=== PATIENT | male | born 1975 | race Caucasian/White ===

== ENCOUNTER 2020-11-25 13:04 | Outpatient (RCR) | payer OTHER, SELFPAY ==
[2020-11-25] MEDS: COVID-19 VACC, MRNA(PFIZER)/PF 30 MCG/0.3 ML SYRINGE IM (16:55)
[2020-12-16] MEDS: COVID-19 VACC, MRNA(PFIZER)/PF 30 MCG/0.3 ML SYRINGE IM (16:34)
== END 2021-02-21 23:59 ==
LOC: IMMUN 13:04
PROVIDERS: PCP Family Medicine; Visit Provider Family Medicine
DX: Z23 Encounter for immunization (principal)
CPT/HCPCS: 0001A; 0002A; 91300

== ENCOUNTER 2021-10-03 13:38 | Emergency (ER) | payer OTHER, SELFPAY ==
[2021-10-03 13:38] VITALS: BP 184/107; PULSE 118; RESP 18; TEMP 36.4; O2SAT 97; BMI 28.7
--- NOTE | 2021-10-03 14:13 | EKG12_ITS ---
Test Reason : CP Blood Pressure : / mmHG Vent. Rate : 102 BPM Atrial Rate : 102 BPM P-R Int : 154 ms QRS Dur : 086 ms QT Int : 354 ms P-R-T Axes : 055 081 029 degrees QTc Int : 461 ms Sinus tachycardia Otherwise normal ECG Confirmed by LEIGHTON ACOSTA, FRANK ([id number]), supervising editor news reel LENARD THORNTON ([id number]) on 10/04/2021 10:09:10 AM Referred By: FARIDEH Confirmed By:FRANK MANZANARES MD
--- NOTE | 2021-10-03 14:14 | NURSING ---
NO OLD EKGS
--- NOTE | 2021-10-03 14:30 | RAD_ITS ---
STUDY: X-RAY CHEST REASON FOR EXAM: Male, 46 years old. Chest pain TECHNIQUE: Single AP portable view of the chest. COMPARISON: None. FINDINGS: EKG electrodes are seen. Mild increased markings at the lung bases suggestive of either atelectasis and/or early infiltrates. Follow-up is recommended. There is no demonstrated pleural abnormality. Normal size heart. Normal mediastinum and jason. Normal visualized pulmonary arteries. Normal visualized aortic arch and descending thoracic aorta. Normal visualized thoracic spine. Normal visualized ribs, clavicles, and shoulders. There is no demonstrated abnormality of the visualized soft tissue structures of the upper abdomen. RAD/Chest 1 View (Portable) IMPRESSION: Increased markings at the lung bases slightly more prominent on the right side suggestive of either atelectasis and/or early infiltrates. Electronically Signed: Florencio Null MD at 14:54 EST , Service support ,
[2021-10-03 14:42] LABS: Prothrombin Time (Protime)PT. 12.8 SECONDS (11.7-14.9)
[2021-10-03 14:46] LABS: Anion Gap 13 (5-15); BUN 10 mg/dL (7-18); BUN/Creat Ratio 7.6 RATIO (10-20); Calcium,Total 9.6 mg/dL (8.5-10.1); Chloride 94 mmol/L (98-107); Creatinine, Serum 1.31 mg/dL (0.70-1.30); EST Glomerular Filtration Rate 63 mL/min (>60); Est Glom Filt Rate - Afr Amer 76 mL/min (>60); Estimated Creatinine Clearance 84.21 ml/min; Glucose 308 mg/dL (74-106); Potassium 4.4 mmol/L (3.5-5.1); Sodium Level 131 mmol/L (136-145); Troponin-I HS 8 pg/mL (3.0-78.0)
[2021-10-03 15:17] LABS: Absolute Lymphocyte Count 1.68 X10^3/uL (0.83-4.51); Absolute Neutrophil Count 2.6 X10^3/uL (2.0-7.7); Basophil# 0.05 X10^3/uL; Eosinophil# 0.07 X10^3/uL; Eosinophils% 1.4 % (0-5); Hematocrit 41.5 % (40-54); Hemoglobin 14.6 g/dL (13.0-16.5); Lymphocyte # 1.68 X10^3/ul (0.83-4.51); Lymphocyte % 33.8 % (19-41); Mean Corp Hgb Conc 35.2 g/dL (32-36); Mean Corpuscular Hgb 33.3 pg (27.0-32.0); Mean Corpuscular Volume 94.5 fL (80-94); Mean Platelet Vol. 11.1 fl (6.2-12.0); Monocyte# 0.53 X10^3/uL; Monocyte% 10.7 % (0-10); NRBC Flagged by Analyzer 0 % (0-5); Neutrophil # 2.62 X10^3/uL (2.7-7.7); Neutrophil % 52.7 % (47-70); Platelet Count 161 K/mm3 (150-450); RBC Distribution Width CV 11.6 % (11.6-14.6); RBC Distribution Width SD 40.2 fl (35.1-43.9); Red Blood Count 4.39 M/mm3 (4.6-6.2)
[2021-10-03] MEDS: 0.9% Normal Saline 1,000 ML 999 ML IV (15:20)
[2021-10-03] MEDS: Ketorolac 15 MG/ML Vial IV (15:20)
--- NOTE | 2021-10-03 15:53 | EDS_ITS ---
HPI History of Present Illness Chief Complaint: Chest Pain Informant: patient Narrative Narrative: Patient is a 46-year-old male with history of anxiety and bipolar disorder as well as diabetes mellitus and hypertension presenting with chest pain. Patient states he was shoveling snow yesterday. In the evening he started to develop pain of his left anterior chest. He notes it is worse when he sits up or takes a deep breath. Movement also makes it worse. He did not take anything for the pain. He denies any associated shortness of breath or difficulty breathing. It has progressively worsened today so he came in to be evaluated. He now describes it as sharp. Patient denies any history of DVT or PE. No other complaints at this time. Prior Similar Symptoms: Yes CVD Risk Factors: Positive for Hypertension and Diabetes [facility] Medical History Appendicitis Bipolar 1 disorder Diabetes Hypertension Home Medications vitamin B complex 1 ea PO DAILY 05/19/14 [History Last Taken Unknown] divalproex [Depakote] 500 mg PO TID 05/28/14 [History Last Taken Unknown] metoprolol tartrate 100 mg PO DAILY 05/28/14 [History Last Taken Unknown] risperidone 3 mg PO DAILY 05/28/14 [History Last Taken Unknown] atorvastatin 10 mg PO DAILY 10/03/21 [History Last Taken Unknown] epinephrine 0.3 mg IM PRN PRN 10/03/21 [History Last Taken Unknown] famotidine 20 mg PO BID 10/03/21 [History Last Taken Unknown] lisinopril 20 mg PO DAILY 10/03/21 [History Last Taken Unknown] Allergy/AdvReac Type Severity Reaction Status Date / Time venom-honey bee Allergy Unknown Verified 10/03/21 13:40 [bee venom (honey bee)] Social History Smoking Status: Never smoker ROS ROS ED Constitutional Constitutional ED: Denies chills or fever(s) Eyes Eyes: Denies blurry vision ENT ENT ED: Denies sore throat Cardiovascular Cardiovascular: Reports as per HPI and chest pain Respiratory/Chest Respiratory/Chest: Denies cough or dyspnea Gastrointestinal Gastrointestinal: Denies abdominal pain, nausea or vomiting Musculoskeletal Musculoskeletal: Denies arthralgias or myalgias Integumentary Denies rash Neurologic Neurologic: Denies headache(s) or weakness Psychiatric Psychiatric: Reports anxiety; Denies depression, suicidal ideation or suicidal thoughts EXAM Physical Exam Const Vital Signs: 10/03/21 13:38 10/03/21 14:21 10/03/21 16:19 Temperature 97.5 F L Temperature Source Temporal Pulse Rate 118 H 89 Respiratory Rate 18 10 L Blood Pressure 184/107 H 115/78 Blood Pressure Mean 132 Pulse Ox 97 95 Oxygen Delivery Method Room Air Room Air Positive well nourished and well developed General Appearance ED: well developed and NAD HEENT normocephalic and atraumatic Eyes PERRL and EOMs intact bilaterally Neck supple and no JVD Neck Narrative: Normal range of motion Chest Wall Chest Narrative: No chest wall crepitus or overlying rash. Patient significant and highly reproducible tenderness to palpation of the left anterior chest wall medial to the midclavicular line and below the level of the nipple. Resp normal respiratory effort and clear to auscultation bilaterally Effort and Inspection: Negative for respiratory distress Cardio regular rate, regular rhythm and no murmurs Peripheral Pulses: pulses 2+ throughout GI normal to inspection, nondistended, normoactive bowel sounds, soft to palpation, non-tender and non-distended Extremity normal to inspection General Extremety ED: Negative for edema or tenderness General Extremity: Negative for edema Neuro oriented x3 Sensorium / Orientation: awake and alert Motor Exam: Negative for general weakness Psych mental status grossly normal Mood & Affect: anxious Skin no rashes or lesions noted and no wounds Heart Score History: Slightly/Non-Suspicious ECG: Normal Age: </= 45 years Risk Factors: >/= 3 Risk Factors or History of CAD Troponin: </= Normal Limit Score: 2 MDM MDM MDM Narrative Medical decision making narrative: Patient is evaluated for chest pain. This occurred the evening after he shoveled snow. Chest pain is highly reproducible with palpation. I suspect it is musculoskeletal. Patient is also quite anxious and I think this is was causing his tachycardia. Protocol ordered for chest pain complaints. Patient does not have any ischemic changes on his EKG. His high sensory troponin is normal. CBC is normal. BMP is remarkable for mild elevation of his creatinine and a mild hyponatremia with a sodium of 131. Patient is given normal saline bolus as well as Toradol for his chest wall pain in the ER. THis creatinine is his baseline. Chest x-ray shows atelectasis versus early infiltrate of the right lower lobe. Given the fact that he does not have a leukocytosis, fever, cough or other signs of pneumonia I suspect it is atelectasis. Patient is informed of these electrolyte findings and that I suspect his pain is muscle skeletal in nature. He is discharged home with improvement of his pain after Toradol. Counseled on return precautions. Damian vasquez verbalizes agreement understanding this plan. Discharged home in stable condition. Lab Data Labs: Laboratory Results - last 24 hr 10/03/21 10/03/21 10/03/21 14:15 14:15 14:15 WBC Cancelled Corrected WBC Cancelled RBC Cancelled Hgb Cancelled Hct Cancelled MCV Cancelled MCH Cancelled MCHC Cancelled RDW Std Deviation Cancelled RDW Coeff of Tiana Cancelled Plt Count Cancelled MPV Cancelled Immature Gran % (Auto) Cancelled Neut % (Auto) Cancelled Lymph % (Auto) Cancelled [place] % (Auto) Cancelled Eos % (Auto) Cancelled Baso % (Auto) Cancelled Absolute Neuts (auto) Cancelled Absolute Lymphs (auto) Cancelled Total Counted Cancelled Neutrophils % (Manual) Cancelled Band Neutrophils % Cancelled Lymphocytes % (Manual) Cancelled Monocytes % (Manual) Cancelled Eosinophils % (Manual) Cancelled Basophils % (Manual) Cancelled Metamyelocytes % Cancelled Myelocytes % Cancelled Promyelocytes % Cancelled Blast Cells % Cancelled Plasma Cell % (Manual) Cancelled Other Cells % Cancelled Nucleated RBC % Cancelled Nucleated RBCs/100 WBC Cancelled Differential Comment Cancelled Diff Path Review Cancelled Hypersegmented Neuts Cancelled Atypical Lymphocytes Cancelled Reactive Lymphocytes Cancelled Smudge Cells Cancelled Toxic Granulation Cancelled Toxic Vacuolation Cancelled Dohle Bodies Cancelled Beatriz Rods Cancelled Platelet Estimate Cancelled Plt Morphology Comment Cancelled RBC Morphology Cancelled Polychromasia Cancelled Hypochromasia Cancelled Poikilocytosis Cancelled Basophilic Stippling Cancelled Anisocytosis Cancelled Microcytosis Cancelled Macrocytosis Cancelled Spherocytes Cancelled Sickle Cells Cancelled Target Cells Cancelled Tear Drop Cells Cancelled Ovalocytes Cancelled Stomatocytes Cancelled [place] Bodies Cancelled Cyrus Cells Cancelled Bite Cells Cancelled Crenated Cell Cancelled Acanthocytes (Spur) Cancelled Rouleaux Cancelled Schistocytes Cancelled PT 12.8 INR 1.0 Sodium 131 L Potassium 4.4 Chloride 94 L Carbon Dioxide 24.0 Anion Gap 13 BUN 10 Creatinine 1.31 H Estim Creat Clear Calc 84.21 Est GFR (MDRD) Af Amer 76 Est GFR (MDRD) Non-Af 63 BUN/Creatinine Ratio 7.6 L Glucose 308 H Calcium 9.6 Troponin I High Sens 8 10/03/21 15:11 WBC 5.0 Corrected WBC RBC 4.39 L Hgb 14.6 Hct 41.5 MCV 94.5 H MCH 33.3 H MCHC 35.2 RDW Std Deviation 40.2 RDW Coeff of Tiana 11.6 Plt Count 161 MPV 11.1 Immature Gran % (Auto) 0.400 Neut % (Auto) 52.7 Lymph % (Auto) 33.8 [place]haw % (Auto) 10.7 H Eos % (Auto) 1.4 Baso % (Auto) 1.0 Absolute Neuts (auto) 2.6 Absolute Lymphs (auto) 1.68 Total Counted Neutrophils % (Manual) Band Neutrophils % Lymphocytes % (Manual) Monocytes % (Manual) Eosinophils % (Manual) Basophils % (Manual) Metamyelocytes % Myelocytes % Promyelocytes % Blast Cells % Plasma Cell % (Manual) Other Cells % Nucleated RBC % 0 Nucleated RBCs/100 WBC Differential Comment Diff Path Review Hypersegmented Neuts Atypical Lymphocytes Reactive Lymphocytes Smudge Cells Toxic Granulation Toxic Vacuolation Dohle Bodies Beatriz Rods Platelet Estimate Plt Morphology Comment RBC Morphology Polychromasia Hypochromasia Poikilocytosis Basophilic Stippling Anisocytosis Microcytosis Macrocytosis Spherocytes Sickle Cells Target Cells Tear Drop Cells Ovalocytes Stomatocytes [place] Bodies Cyrus Cells Bite Cells Crenated Cell Acanthocytes (Spur) Rouleaux Schistocytes PT INR Sodium Potassium Chloride Carbon Dioxide Anion Gap BUN Creatinine Estim Creat Clear Calc Est GFR (MDRD) Af Amer Est GFR (MDRD) Non-Af BUN/Creatinine Ratio Glucose Calcium Troponin I High Sens Radiography Chest X-Ray - ED: 1 View, Read by ED Physician, Read by Radiologist and - (Atelectasis versus early infiltrates) Diagnostic Testing: Clinical Impression(s) from Imaging Studies Chest X-Ray 10/03/21 14:30 IMPRESSION: Increased markings at the lung bases slightly more prominent on the right side suggestive of either atelectasis and/or early infiltrates. Electronically Signed: Florencio Null MD at 14:54 EST , Service support , Rhythm Strip Rhythm Strip: Sinus Tach Rate: 102 Ectopy: None EKG Initial EKG: Interpretation: Sinus Tachycardia Comments: Sinus tachycardia rate of 102 Normal axis Normal intervals Normal ST segments Discharge Plan Triage Chief Complaint: Chest Pain ED Provider: Cora Lopez Dx/Rx/DC Orders Clinical Impression: Acute chest wall pain, Hyponatremia Instructions: ED Chest Wall Pain, Costochondritis Prescriptions: No Action vitamin B complex 1 EACH capsule 1 ea PO DAILY RF: 0 metoprolol tartrate 100 MG tablet 100 mg PO DAILY RF: 0 divalproex [Depakote] 500 MG tablet,delayed release (DR/EC) 500 mg PO TID RF: 0 risperidone 1 MG tablet 3 mg PO DAILY RF: 0 atorvastatin 10 mg tablet 10 mg PO DAILY RF: 0 lisinopril 20 mg tablet 20 mg PO DAILY RF: 0 famotidine 20 mg tablet 20 mg PO BID RF: 0 epinephrine 0.3 mg/0.3 mL auto-injector 0.3 mg IM PRN PRN (Reason: Allergic Reaction) RF: 0 Primary Care Provider: Ilya Chavez Referrals: Ilya Chavez MD [Primary Care Provider] - Activity Restrictions/Additional Instructions: Drink plenty of fluids. Alternate Tylenol and ibuprofen as needed for your pain. Your heart looks normal today. No signs of pneumonia or other abnormalities. You were slightly dehydrated but you were given IV fluids for this. Disposition Disposition: Home, Self Care Discharge Date/Time: 10/03/21 16:20
[2021-10-03 16:19] VITALS: BP 115/78; PULSE 89; RESP 10; O2SAT 95
== END 2021-10-03 16:20 | disposition home or self-care (01) ==
PROVIDERS: Emergency Provider Emergency Medicine; PCP Family Medicine; Visit Provider Emergency Medicine
DX: R07.89 Other chest pain (principal); F31.9 Bipolar disorder, unspecified; E11.9 Type 2 diabetes mellitus without complications; E87.1 Hypo-osmolality and hyponatremia; F41.9 Anxiety disorder, unspecified; I10 Essential (primary) hypertension; Z87.19 Personal history of other diseases of the digestive system; Z79.899 Other long term (current) drug therapy
CPT/HCPCS: 71045; 80048; 84484; 85025; 85610; 93005; 96361; 96374; 99285; J7030; A4216

== ENCOUNTER 2023-07-19 10:25 | Emergency (ER) | payer OTHER, SELFPAY ==
[2023-07-19 10:26] VITALS: BP 166/118; PULSE 85; RESP 14; TEMP 36.2; O2SAT 98; BMI 29.5
[2023-07-19 10:30] VITALS: BP 158/109; PULSE 84; RESP 14; O2SAT 95
--- NOTE | 2023-07-19 10:48 | EKG12_ITS ---
Test Reason : CP Blood Pressure : / mmHG Vent. Rate : 082 BPM Atrial Rate : 082 BPM P-R Int : 170 ms QRS Dur : 080 ms QT Int : 356 ms P-R-T Axes : 046 077 034 degrees QTc Int : 415 ms Normal sinus rhythm Normal ECG Confirmed by ZOE ACOSTA, SIMI ([id number]), international editorial producer DAVID LYNCH ([id number]) on 07/29/2023 7:45:55 AM Referred By: AR/PL Confirmed By:PEEWEE ENRIQUEZ MD
--- NOTE | 2023-07-19 10:49 | ED.VIS.CHEST ---
HPI History of Present Illness Chief Complaint: Chest Pain Informant: patient and spouse/S.O. Narrative Narrative: Patient presents with episode of chest pain. Patient states he was sitting at work. He got sharp chest pain just the right anterior shoulder. It then radiated a little bit toward his shoulder on the backside in the right and a little toward the neck. It lasted for about 20 minutes. He states if he moves he can feel little something in the front of the shoulder now but he is otherwise back to normal. He does state he thinks he was a little short of breath with this. He was not diaphoretic. He did not get nauseated. He has not had this before. He does have a history of blood pressure diabetes and cholesterol. No known family history for heart disease. No PE or DVT history. He did have a trip down to [place] and back by plane and then a boat ride to [place] and he just got back this past weekend. But no leg pain or swelling. No hemoptysis. [facility] Medical History Appendicitis Bipolar 1 disorder Diabetes Hypercholesteremia Hypertension Home Medications vitamin B complex 1 ea PO DAILY 05/19/14 [History Last Taken Unknown] divalproex 500 mg tablet,delayed release (Depakote) 500 mg PO TID 05/28/14 [History Last Taken Unknown] metoprolol tartrate 100 mg tablet 100 mg PO DAILY 05/28/14 [History Last Taken Unknown] risperidone 1 mg tablet 3 mg PO DAILY 05/28/14 [History Last Taken Unknown] atorvastatin 10 mg tablet 10 mg PO DAILY 10/03/21 [History Last Taken Unknown] epinephrine 0.3 mg/0.3 mL injection, auto-injector 0.3 mg IM PRN PRN Allergic Reaction 10/03/21 [History Last Taken Unknown] famotidine 20 mg tablet 20 mg PO BID 10/03/21 [History Last Taken Unknown] lisinopril 20 mg tablet 20 mg PO DAILY 10/03/21 [History Last Taken Unknown] Allergy/AdvReac Type Severity Reaction Status Date / Time venom-honey bee Allergy Unknown Verified 10/03/21 13:40 [bee venom (honey bee)] Social History Smoking Status: Never smoker ROS ROS ED ROS Narrative A complete review of systems was performed and is negative except as documented in the history of present illness. Some specific details below. Constitutional: No recent fevers or chills. No malaise. He felt fine prior to this event and now. EYE: No discharge, visual complaints, or pain. ENT: No difficulty swallowing. No swelling. No pain. No reflux symptoms. No history of reflux. CV: See history of present illness. Respiratory: See history of present illness. He had mild dyspnea with it but that is also gone. GI: No abdominal pain. No nausea vomiting diarrhea. No blood in stool. : No frequency dysuria or hematuria. Musculoskeletal: No recent trauma. No pains. No swelling. No cramping of the legs. No history of DVT. Skin: No rash. Nondiaphoretic. Neuro: No weakness or numbness. Endocrine: No polyuria or polydipsia. EXAM Physical Exam Narrative Exam Narrative: CONSTITUTIONAL: Patient is nontoxic in appearance. The patient looks comfortable. Work of breathing looks normal. HEENT: No notable trauma. Mucous membranes moist. No sinus tenderness. No indication of pain with swallowing. EYES: No conjunctival injection. No proptosis. NECK:No JVD. No stridor. CARDIOVASCULAR: Regular rate. Regular rhythm. No notable murmur. No JVD. Tones are not muffled. He has excellent pulses both upper and lower extremities and they are equal. RESPIRATORY: No respiratory distress. Breathing is unlabored. No wheezes. No rhonchi. No rales. No pain with a deep breath. Just very mild right anterior upper chest wall tenderness almost at the anterior portion of the humerus or over the coracoid process. GASTROINTESTINAL: Not distended. Bowel sounds are normal. No tenderness. No guarding. No rebound. No palpable mass. No bruit is heard. GENITOURINARY: No tenderness over the bladder. No CVA tenderness. MUSCULOSKELETAL: Atraumatic. No peripheral edema. No cord. No tenderness along the deep venous system. No asymmetry. No distended veins. NEUROLOGICAL: Patient is alert and appropriate. No focal deficit noted. SKIN: No noted rashes. No diaphoresis. PSYCHIATRIC: Patient is calm. Mood is appropriate. Const Vital Signs: 07/19/23 10:26 07/19/23 10:30 07/19/23 10:48 Temperature 97.2 F L Temperature Source Temporal Pulse Rate 85 84 Respiratory Rate 14 14 Blood Pressure 166/118 H 158/109 H Blood Pressure Mean 134 125 Pulse Ox 98 95 Oxygen Delivery Method Room Air Room Air Room Air 07/19/23 12:31 Temperature Temperature Source Pulse Rate 81 Respiratory Rate 16 Blood Pressure Blood Pressure Mean Pulse Ox 94 Oxygen Delivery Method Room Air Heart Score History: Slightly/Non-Suspicious ECG: Normal Age: >45 - <65 years Risk Factors: >/= 3 Risk Factors or History of CAD Troponin: </= Normal Limit Score: 3 MDM MDM MDM Narrative Medical decision making narrative: Patient CBC shows normal white count hemoglobin. Platelets are just minimally low which is nonspecific. Patient's electrolytes show no marked abnormalities. Mildly low sodium at 131. Glucose was just a little bit up at 169. Patient's troponin was 8. Patient's repeat troponin was 9. This is not a significant elevation. I checked with the patient again. He has remained asymptomatic. My independent interpretation of the patient's to image single view chest x-ray shows no acute process. Final reading is wax Amidate the chest. Patient does have some risk factors for heart disease. But he has sharp well localized chest pain. It is partially reproduced. His EKG is not markedly changed. He has 2 negative troponins. I believe he is safe for discharge at this time. We did discuss reasons to return even though the work-up here is negative. Lab Data Attestation: I reviewed the patient's lab results. Labs: Laboratory Results - last 24 hr 07/19/23 07/19/23 10:40 12:48 WBC 4.0 L RBC 4.20 L Hgb 13.9 Hct 39.2 L MCV 93.3 MCH 33.1 H MCHC 35.5 RDW Std Deviation 40.8 RDW Coeff of Tinaa 11.9 Plt Count 138 L MPV 11.2 Immature Gran % (Auto) 0.500 Neut % (Auto) 44.4 L Lymph % (Auto) 35.2 [place] % (Auto) 18.2 H Eos % (Auto) 1.0 Baso % (Auto) 0.7 Absolute Neuts (auto) 1.8 L Absolute Lymphs (auto) 1.41 Nucleated RBC % 0 D-Dimer Quant (PE/DVT) 0.40 Sodium 131 L Potassium 3.8 Chloride 95 L Carbon Dioxide 28.0 Anion Gap 8 BUN 5 L Creatinine 0.94 Estim Creat Clear Calc 109.79 Est GFR (MDRD) Af Amer 111 Est GFR (MDRD) Non-Af 92 BUN/Creatinine Ratio 5.3 L Glucose 169 H Calcium 8.9 Troponin I High Sens 8 9 Radiography Diagnostic Testing: Clinical Impression(s) from Imaging Studies Chest X-Ray 07/19/23 11:10 IMPRESSION: Normal x-ray examination of the chest. Electronically Signed: Florencio Null MD at 12:39 EDT , EKG Initial EKG: Comments: My independent interpretation of the patient's EKG shows a sinus rhythm with overall rate of 82. No ectopy. No acute ST elevation or depression. PA interval, QRS duration and QTc are normal. Discharge Plan Triage Chief Complaint: Chest Pain ED Provider: Jose Luis Ortiz Dx/Rx/DC Orders Clinical Impression: History of hypertension, Chest pain Instructions: ED Chest Pain, Uncertain Cause Prescriptions: No Action vitamin B complex 1 EACH capsule 1 ea PO DAILY metoprolol tartrate 100 MG tablet 100 mg PO DAILY divalproex [Depakote] 500 MG tablet,delayed release (DR/EC) 500 mg PO TID risperidone 1 MG tablet 3 mg PO DAILY atorvastatin 10 mg tablet 10 mg PO DAILY lisinopril 20 mg tablet 20 mg PO DAILY famotidine 20 mg tablet 20 mg PO BID epinephrine 0.3 mg/0.3 mL auto-injector 0.3 mg IM PRN PRN (Reason: Allergic Reaction) Primary Care Provider: Ilya Chavez Referrals: Ilya Chavez MD [Primary Care Provider] - 3-5 Days Disposition Disposition: Home, Self Care
--- NOTE | 2023-07-19 11:10 | RAD_ITS ---
STUDY: X-RAY CHEST REASON FOR EXAM: Male, 47 years old. Chest pain. Hypertension. TECHNIQUE: Single AP portable view of the chest. COMPARISON: Comparison is made with prior study dated October 03, 2021. FINDINGS: The lungs are clear and expanded. There is no demonstrated pleural abnormality. Normal size heart. Normal mediastinum and jason. Normal visualized pulmonary arteries. Normal visualized aortic arch and descending thoracic aorta. Normal visualized thoracic spine. Normal visualized ribs, clavicles, and shoulders. There is no demonstrated abnormality of the visualized soft tissue structures of the upper abdomen. RAD/Chest 1 View (Portable) IMPRESSION: Normal x-ray examination of the chest. Electronically Signed: Florencio Null MD at 12:39 EDT ,
[2023-07-19] MEDS: Aspirin 81 MG TAB.CHEW 324 MG PO (11:13)
[2023-07-19] MEDS: 0.9% Normal Saline (1000mL) 500 ML 1000 ML IV (11:13)
[2023-07-19 11:21] LABS: Absolute Lymphocyte Count 1.41 X10^3/uL (0.83-4.51); Absolute Neutrophil Count 1.8 X10^3/uL (2.0-7.7); Basophil# 0.03 X10^3/uL; Basophil% 0.7 % (0-1); Eosinophil# 0.04 X10^3/uL; Hematocrit 39.2 % (40-54); Hemoglobin 13.9 g/dL (13.0-16.5); Lymphocyte # 1.41 X10^3/ul (0.83-4.51); Lymphocyte % 35.2 % (19-41); Mean Corp Hgb Conc 35.5 g/dL (32-36); Mean Corpuscular Hgb 33.1 pg (27.0-32.0); Mean Corpuscular Volume 93.3 fL (80-94); Mean Platelet Vol. 11.2 fl (6.2-12.0); Monocyte# 0.73 X10^3/uL; Monocyte% 18.2 % (0-10); NRBC Flagged by Analyzer 0 % (0-5); Neutrophil # 1.78 X10^3/uL (2.7-7.7); Neutrophil % 44.4 % (47-70); Platelet Count 138 K/mm3 (150-450); RBC Distribution Width CV 11.9 % (11.6-14.6); RBC Distribution Width SD 40.8 fl (35.1-43.9)
[2023-07-19 11:38] LABS: Anion Gap 8 (5-15); BUN 5 mg/dL (7-18); BUN/Creat Ratio 5.3 RATIO (10-20); Calcium,Total 8.9 mg/dL (8.5-10.1); Chloride 95 mmol/L (98-107); Creatinine, Serum 0.94 mg/dL (0.70-1.30); EST Glomerular Filtration Rate 92 mL/min (>60); Est Glom Filt Rate - Afr Amer 111 mL/min (>60); Estimated Creatinine Clearance 109.79 ml/min; Glucose 169 mg/dL (74-106); Potassium 3.8 mmol/L (3.5-5.1); Sodium Level 131 mmol/L (136-145); Troponin-I HS (w/2H Reflex) 8 pg/mL (3.0-78.0)
[2023-07-19 12:31] VITALS: PULSE 81; RESP 16; O2SAT 94
[2023-07-19 13:12] LABS: Reflex Troponin-HS? (from REC) Y
[2023-07-19 13:35] LABS: Troponin-I HS 9 pg/mL (3.0-78.0)
[2023-07-19 14:42] VITALS: BP 141/104; PULSE 80; RESP 20; O2SAT 94
== END 2023-07-19 14:50 | disposition home or self-care (01) ==
PROVIDERS: Emergency Provider Emergency Medicine; PCP Family Medicine; Visit Provider Emergency Medicine
DX: R07.9 Chest pain, unspecified (principal); F31.9 Bipolar disorder, unspecified; E11.9 Type 2 diabetes mellitus without complications; E78.00 Pure hypercholesterolemia, unspecified; I10 Essential (primary) hypertension
CPT/HCPCS: 71045; 80048; 84484; 85025; 85379; 93005; 99284

== ENCOUNTER 2023-09-29 10:43 | Emergency (ER) | payer OTHER, SELFPAY ==
[2023-09-29 10:44] VITALS: BP 153/106; PULSE 85; RESP 16; TEMP 35.8; O2SAT 99; BMI 29.2
--- NOTE | 2023-09-29 11:06 | CT_ITS ---
INDICATION: head injury EXAMINATION: CT BRAIN - CT Head or Brain W/O Contrast Injection TECHNIQUE: Multiple axial images were obtained of the head without intravenous contrast. A radiation dose optimization technique was used for this scan. IV Contrast dosage and agent: None. RADIATION DOSAGE (If Supplied By Facility): CTDIvol = ( 44.99 ) mGy, DLP = ( 829.95 ) mGycm COMPARISON: No relevant prior comparison study available FINDINGS: BRAIN PARENCHYMA: No intra- or extra-axial hemorrhage. No evidence of acute infarct. No intracranial mass or mass effect. There is preservation of the cueto/white matter interface. Posterior fossa structures are unremarkable. CSF SPACES: Appropriate for age. No hydrocephalus. Basal cisterns are patent. CALVARIUM, SKULL BASE, PARANASAL SINUSES AND MASTOID AIR CELLS: There is partial opacification of the right maxillary sinus suggestive of a history of sinusitis. There are round low-attenuation foci within the right maxillary sinus which may reflect mucous retention cyst or polyp. No discrete lytic or blastic abnormalities. ORBITS: Both globes, extraocular muscles, optic nerves and retrobulbar fat appear unremarkable. ASPECTS Score for Acute Strokes: 10 CT/Brain/Head without Contrast IMPRESSION: No acute intracranial process. Electronically Signed: Loan Woods MD at 11:32 EST ,
--- NOTE | 2023-09-29 11:06 | CT_ITS ---
INDICATION: neck pain EXAMINATION: CT CERVICAL SPINE - CT Spine Cervical W/O Contrast Injection TECHNIQUE: Helically acquired images were obtained of the cervical spine. 2D reformatted images were reviewed. A radiation dose optimization technique was used for this scan. IV Contrast dosage and agent: None. RADIATION DOSAGE (If Supplied By Facility): CTDIvol = ( 23.93 ) mGy, DLP = ( 512.37 ) mGycm COMPARISON: No relevant prior comparison study available FINDINGS: VERTEBRAE: No fracture or traumatic subluxation. No discrete lytic or blastic abnormality. There is multilevel facet hypertrophy. Normal alignment. Normal craniocervical junction and cervicothoracic junction. DISCS and SPINAL CANAL: There is multilevel degenerative disc disease. No critical stenosis. NECK SOFT TISSUES: No prevertebral soft tissue swelling. There is no cervical adenopathy. LUNG APICES: Clear. CT/Spine Cervical without Contras IMPRESSION: Multilevel degenerative changes. Electronically Signed: Loan Woods MD at 11:35 EST ,
--- NOTE | 2023-09-29 11:11 | EX.ED.GENINJ ---
HPI <GRIS Lynn - Last Filed: 09/29/23 12:01> History of Present Illness Chief Complaint: Head Injury Narrative Narrative: 48-year-old male works at the [employer] and around 7 AM tripped over basketball and fell backwards striking his head on a shelf. No LOC. His head feels sore and he is starting to have bilateral neck pain. He denies headache, visual changes, nausea or vomiting. He has no pain, weakness or paresthesias in his extremities. He is not on blood thinners. PFSH <GRIS Lynn - Last Filed: 09/29/23 12:01> [facility] Medical History Appendicitis Bipolar 1 disorder Diabetes Hypercholesteremia Hypertension Home Medications vitamin B complex 1 ea PO DAILY 05/19/14 [History Last Taken Unknown] divalproex 500 mg tablet,delayed release (Depakote) 500 mg PO TID 05/28/14 [History Last Taken Unknown] metoprolol tartrate 100 mg tablet 100 mg PO DAILY 05/28/14 [History Last Taken Unknown] risperidone 1 mg tablet 3 mg PO DAILY 05/28/14 [History Last Taken Unknown] atorvastatin 10 mg tablet 10 mg PO DAILY 10/03/21 [History Last Taken Unknown] epinephrine 0.3 mg/0.3 mL injection, auto-injector 0.3 mg IM PRN PRN Allergic Reaction 10/03/21 [History Last Taken Unknown] famotidine 20 mg tablet 20 mg PO BID 10/03/21 [History Last Taken Unknown] lisinopril 20 mg tablet 20 mg PO DAILY 10/03/21 [History Last Taken Unknown] Allergy/AdvReac Type Severity Reaction Status Date / Time venom-honey bee Allergy Unknown Verified 09/29/23 10:44 [bee venom (honey bee)] Social History Smoking Status: Never smoker ROS <GRIS Lynn - Last Filed: 09/29/23 12:01> ROS ED ROS Narrative Eyes: Negative for visual change. GI: Negative for nausea, vomiting. Neuro: Negative for headache, motor/sensory dysfunction. Skin: Negative for wound. Musc: Negative for joint pain, swelling, trauma. EXAM <GRIS Lynn - Last Filed: 09/29/23 12:01> Physical Exam Narrative Exam Narrative: CONST: Patient sitting in no acute distress. EYES: Normal inspection. PERRL, EOMI. ENT: Head normocephalic atraumatic, no raccoon eyes or maddox sign, no hemotympanum, no nasal septal hematoma, no CSF otorrhea or rhinorrhea. NECK: Normal inspection. Tender over midline C-spine, no step-offs or crepitus. RESP: No respiratory distress, CTAB. CVS: Regular rate and rhythm, no murmur, no gallop. SKIN: Color normal, no rash, warm, dry, intact. EXTREMITIES: Normal appearance, no pedal edema. NEURO: Oriented x4. 5/5 upper and lower extremity strength. Resting tremor bilateral arms (chronic). PSYCH: Normal affect. Const Vital Signs: 09/29/23 10:44 09/29/23 10:58 09/29/23 11:43 Temperature 96.5 F L 97.6 F L Temperature Source Temporal Pulse Rate 85 64 Respiratory Rate 16 14 Respiratory Effort Normal Respiratory Depth Normal Respiratory Pattern Normal Blood Pressure 153/106 H 126/86 H Blood Pressure Mean 121 99 Pulse Ox 99 99 Oxygen Delivery Method Room Air Room Air <Dr. Cora Lopez DO - Last Filed: 09/29/23 13:48> Physical Exam Const Vital Signs: 09/29/23 10:44 09/29/23 10:58 09/29/23 11:43 Temperature 96.5 F L 97.6 F L Temperature Source Temporal Pulse Rate 85 64 Respiratory Rate 16 14 Respiratory Effort Normal Respiratory Depth Normal Respiratory Pattern Normal Blood Pressure 153/106 H 126/86 H Blood Pressure Mean 121 99 Pulse Ox 99 99 Oxygen Delivery Method Room Air Room Air [facility] <GRIS Lynn - Last Filed: 09/29/23 12:01> [facility] Narrative Medical decision making narrative: History gathered from: Patient and spouse Patient tripped at work striking the back of his head on a dresser. No LOC. No blood thinners. Complains of head soreness and neck pain. He is awake alert. Stable vital signs. GCS 15. No external signs of trauma or basilar skull fracture present. He has midline cervical tenderness without step-offs. Neurologically intact, no other injuries. CT scans of the brain and cervical spine show no acute findings. Patient advised to ice and take [id number] analgesia as needed. He can return to work without restrictions. Differential: Closed head injury, cervical contusion, cervical fracture Radiography Diagnostic Testing: Clinical Impression(s) from Imaging Studies Brain CT 09/29/23 11:06 IMPRESSION: No acute intracranial process. Electronically Signed: Loan Woods MD at 11:32 EST , Cervical Spine CT 09/29/23 11:06 IMPRESSION: Multilevel degenerative changes. Electronically Signed: Loan Woods MD at 11:35 EST , <Dr. Cora Lopez, DO - Last Filed: 09/29/23 13:48> MDM Radiography Diagnostic Testing: Clinical Impression(s) from Imaging Studies Brain CT 09/29/23 11:06 IMPRESSION: No acute intracranial process. Electronically Signed: Loan Woods MD at 11:32 EST , Cervical Spine CT 09/29/23 11:06 IMPRESSION: Multilevel degenerative changes. Electronically Signed: Loan Woods MD at 11:35 EST , Treatment and Re-Evaluation Narrative: I have personally performed a face to face assessment of the patient and have reviewed the AILIN Note. I performed a substantive portion of the visit including all aspects of the following. My aburto findings include: History is patient is a 48-year-old male with history of chronic tremor presenting after mechanical fall at work. This is a Work[employer]'s [employer]. injury. He slipped/tripped on a basketball and fell backwards hitting the back of his head. He is complain of some midline neck pain. No focal neurologic deficits. No loss of conscious. Is not on any anticoagulation. GCS is 15. No focal neurologic deficits noted on exam. CT of this brain and cervical spine obtained do not show any acute traumatic process. Patient is cleared to return to work. Counseled alternate ibuprofen and Tylenol as needed for pain. Counseled likely be more sore over the next 24 to 48 hours. He verbalized agreement understand this plan. Discharged home in stable condition. Other additions or changes: [None] Discharge Plan Triage Chief Complaint: Head Injury ED Midlevel Provider: Marcia Alexander ED Provider: Cora Lopez Dx/Rx/DC Orders Clinical Impression: Neck pain, acute, Closed head injury Instructions: ED Head Injury (Adult) Prescriptions: No Action vitamin B complex 1 EACH capsule 1 ea PO DAILY metoprolol tartrate 100 MG tablet 100 mg PO DAILY divalproex [Depakote] 500 MG tablet,delayed release (DR/EC) 500 mg PO TID risperidone 1 MG tablet 3 mg PO DAILY atorvastatin 10 mg tablet 10 mg PO DAILY lisinopril 20 mg tablet 20 mg PO DAILY famotidine 20 mg tablet 20 mg PO BID epinephrine 0.3 mg/0.3 mL auto-injector 0.3 mg IM PRN PRN (Reason: Allergic Reaction) Primary Care Provider: Ilya Chavez Referrals: Ilya Chavez MD [Primary Care Provider] - Activity Restrictions/Additional Instructions: Take tylenol or ibuprofen as needed. Disposition Disposition: Home, Self Care Discharge Date/Time: 09/29/23 12:12
[2023-09-29 11:43] VITALS: BP 126/86; PULSE 64; RESP 14; TEMP 36.4; O2SAT 99
--- OUTSIDE RECORDS SUMMARY | 2023-09-29 12:04 | XMS RPT_ITS | CCD ---
Author Name Unknown Address [address] [place] [address] Organization [facility] Care Team Providers [employer] Name Role Phone Juli Shaikh MD Primary Care Provider JULI SHAIKH Primary Care Unavailable JULI SHAIKH Referring Unavailable WILLIAMS BERNARDO Attending Unavailable JULI SHAIKH Primary Care Unavailable JULI SHAIKH Referring Unavailable JULI SHAIKH Primary Care Unavailable JULI SHAIKH Referring Unavailable JULI SHAIKH Attending Unavailable JULI SHAIKH Primary Care Unavailable JULI SHAIKH Primary Care Unavailable ASTREIKA, VERA Referring Unavailable JULI SHAIKH Primary Care Unavailable JULI SHAIKH Primary Care Unavailable JULI SHAIKH Referring Unavailable JULI SHAIKH Primary Care Unavailable WILLIAMS BERNARDO Attending Unavailable JULI SHAIKH Primary Care Unavailable WILLIAMS BERNARDO Attending Unavailable JULI SHAIKH Primary Care Unavailable JESSICA FRANCES Attending Unavailable Allergies Allergy Classification Reported Allergen(s) Allergy Type Date of Onset Reaction(s) Facility (20 sources) Bees; Translations: [BEES] Allergy to substance 1 Swelling [facility] Work Phone: (16 sources) house dust allergenic extract; Translations: [HOUSE DUST] Drug Allergy 3 Other: See Comments [facility] Work Phone: Medications Current Medications Medication Drug Class(es) Dates Sig (Normalized) Sig (Original) gabapentin 300 mg oral capsule (20 sources) Anti-epileptic Agent Start: 06-11-2023 End: 12-08-2023 take 1 capsule by mouth twice daily gabapentin (NEURONTIN) 300 mg capsule Take 1 capsule by mouth twice daily for 180 days. 180 capsule 1 06/11/2023 12/08/2023 Active Completed/Discontinued Medications Medication Drug Class(es) Dates Sig (Normalized) Sig (Original) 200 actuat albuterol 0.09 mg/actuat dry powder inhaler (20 sources) beta2-Adrenergic Agonist Start: 02-26-2020 End: 06-11-2023 take 2 puff(s) by inhalation every six hours as needed ProAir RespiClick 90 mcg/actuation breath activated (albuterol sulfate) Inhale 2 Puffs as instructed every 6 hours as needed. 3 Each 1 02/26/2020 06/11/2023 Discontinued Problems Active Problems Problem Classification Problem Date Documented Date Episodic/Chronic Diabetes mellitus with complications (20 sources) Type II diabetes mellitus uncontrolled; Translations: [Type 2 diabetes mellitus with hyperglycemia] Onset: 02-29-2020 10-27-2021 Chronic Diabetes mellitus without complication (2 sources) Type 2 diabetes mellitus without complication; Translations: [Type 2 diabetes mellitus without complications] Onset: 02-29-2020 02-29-2020 Chronic Disorders of lipid metabolism (20 sources) Mixed hyperlipidemia; Translations: [Mixed hyperlipidemia] Onset: 06-06-2018 02-29-2020 Chronic Esophageal disorders (20 sources) Gastroesophageal reflux disease; Translations: [Gastro-esophageal reflux disease without esophagitis] Onset: 03-26-2011 06-06-2018 Chronic Essential hypertension (20 sources) Essential hypertension; Translations: [Essential (primary) hypertension] Onset: 01-30-2012 06-06-2018 Chronic Fluid and electrolyte disorders (2 sources) Hyponatremia; Translations: [Hypo-osmolality and hyponatremia] Episodic Immunizations and screening for infectious disease (2 sources) Vaccination needed; Translations: [Encounter for immunization] 06-11-2023 Episodic Mood disorders (20 sources) Depressive disorder; Translations: [Depression] Onset: 03-26-2011 06-06-2018 Chronic Nutritional deficiencies (2 sources) Vitamin D deficiency; Translations: [Vitamin D deficiency, unspecified] Chronic Other ear and sense organ disorders (1 source) Impacted cerumen of bilateral ears; Translations: [Impacted cerumen, bilateral] Episodic Other liver diseases (20 sources) Steatosis of liver; Translations: [Fatty (change of) liver, not elsewhere classified] Onset: 02-20-2019 02-20-2019 Chronic Other male genital disorders (20 sources) Male erectile dysfunction, unspecified; Translations: [Impotence of organic origin] Onset: 06-06-2018 10-10-2018 Chronic Other nutritional; endocrine; and metabolic disorders (20 sources) Hypercalcemia; Translations: [Hypercalcemia] Onset: 02-26-2020 02-26-2020 Chronic Other upper respiratory disease (20 sources) Seasonal allergic rhinitis; Translations: [Other seasonal allergic rhinitis] Onset: 11-23-2021 11-30-2021 Chronic Other upper respiratory infections (8 sources) Bacterial sinusitis; Translations: [Chronic sinusitis, unspecified] Chronic Residual codes; unclassified (20 sources) Obstructive sleep apnea syndrome; Translations: [Obstructive sleep apnea (adult) (pediatric)] Onset: 12-31-2020 12-31-2020 Chronic Thyroid disorders (20 sources) Multinodular goiter; Translations: [Nontoxic multinodular goiter] Onset: 11-27-2021 11-27-2021 Chronic Past or Other Problems Problem Classification Problem Date Documented Da te Episodic/Chronic Allergic reactions (20 sources) H/O: non-drug allergy; Translations: [Bee allergy status] Onset: 03-26-2011 12-14-2019 Episodic Other aftercare (1 source) Other skilled nursing (current) drug therapy; Translations: [On angiotensin receptor blockers (ARB)] Onset: 04-25-2023 Episodic Other nervous system disorders (20 sources) Tremor; Translations: [Tremor, unspecified] Onset: 02-26-2019 12-14-2019 Episodic Other screening for suspected conditions (not mental disorders or infectious disease) (20 sources) Other specified abnormal findings of blood chemistry; Translations: [Other abnormal blood chemistry] Onset: 02-13-2019 11-09-2020 Episodic Residual codes; unclassified (20 sources) FH: Myocardial infarction; Translations: [Family history of ischemic heart disease and other diseases of the circulatory system] Onset: 06-06-2018 10-10-2018 Episodic Residual codes; unclassified (1 source) Family history of ischemic heart disease and other diseases of the circulatory system; Translations: [Family history of NH (myocardial infarction)] Onset: 10-10-2018 Episodic Screening and history of mental health and substance abuse codes (20 sources) Ex-smoker; Translations: [Personal history of nicotine dependence] Onset: 06-06-2018 10-10-2018 Episodic Results Test Name Value Interpretation Reference Range Facil ity Vital Signs Date Time Vital Sign Value Performing Clinician Heather kasper 07-19-2023 13:17-0400 Body temperature 98.6 [degF] Jessica Frances APRN.SENIOR ACCOUNTANT CPA Work Phone: [facility] 07-19-2023 13:17-0400 Body weight 101.33 kg Jessica Frances BRUSH SANDER.SENIOR ACCOUNTANT CPA Work Phone: [facility] 07-19-2023 13:17-0400 Diastolic blood pressure 94 mm[Hg] Jessica Frances BRUSH SANDER.SENIOR ACCOUNTANT CPA Work Phone: [facility] 07-19-2023 13:17-0400 Heart rate 89 /min Jessica Frances BRUSH SANDER.SENIOR ACCOUNTANT CPA Work Phone: [facility] 07-19-2023 13:17-0400 Respiratory rate 16 /min Jessica Frances APRN.SENIOR ACCOUNTANT CPA Work Phone: [facility] 07-19-2023 13:17-0400 SaO2% (BldA) [Mass fraction] 97 % Jessica Frances BRUSH SANDER.SENIOR ACCOUNTANT CPA Work Phone: [facility] 07-19-2023 13:17-0400 Systolic blood pressure 146 mm[Hg] Jessica Frances BRUSH SANDER.SENIOR ACCOUNTANT CPA Work Phone: [facility] 06-11-2023 10:36-0400 Body height 188 cm Juli Shaikh MD Work Phone: [facility] 06-11-2023 10:36-0400 Body weight 97.98 kg Juli Shaikh MD Work Phone: [facility] 06-11-2023 10:36-0400 Diastolic blood pressure 94 mm[Hg] Juli Shaikh MD Work Phone: [facility] 06-11-2023 10:36-0400 Heart rate 82 /min Juli Shaikh MD Work Phone: [facility] 06-11-2023 10:36-0400 Respiratory rate 16 /min Juli Shaikh MD Work Phone: [facility] 06-11-2023 10:36-0400 Systolic blood pressure 130 mm[Hg] Juli Shaikh MD Work Phone: [facility] 08-14-2022 09:47-0500 Body temperature 97.3 [degF] Viv Hooper PA-C Work Phone: [facility] 08-14-2022 09:47-0500 Body weight 100.7 kg Viv Hooper PA-C Work Phone: [facility] 08-14-2022 09:47-0500 Diastolic blood pressure 76 mm[Hg] Viv Hooper PA-C Work Phone: [facility] 08-14-2022 09:47-0500 Heart rate 76 /min Viv Hooper PA-C Work Phone: [facility] 08-14-2022 09:47-0500 Respiratory rate 18 /min Viv Hooper PA-C Work Phone: [facility] 08-14-2022 09:47-0500 Systolic blood pressure 120 mm[Hg] Viv Hooper PA-C Work Phone: [facility] 07-06-2022 07:08-0400 Body weight 101.61 kg Viv Hooper PA-C Work Phone: [facility] 07-06-2022 07:08-0400 Diastolic blood pressure 78 mm[Hg] Viv Hooper PA-C Work Phone: [facility] 07-06-2022 07:08-0400 Heart rate 84 /min Viv Hooper PA-C Work Phone: [facility] 07-06-2022 07:08-0400 Respiratory rate 16 /min Viv Hooper PA-C Work Phone: [facility] 07-06-2022 07:08-0400 Systolic blood pressure 120 mm[Hg] Viv Hooper PA-C Work Phone: [facility] 01-25-2022 11:03-0400 Body temperature 97.2 [degF] Viv LANDRY-C Work Phone: [facility] 01-25-2022 11:03-0400 Body weight 99.34 kg Viv Hooper PA-C Work Phone: [facility] 01-25-2022 11:03-0400 Diastolic blood pressure 86 mm[Hg] Viv LANDRY-C Work Phone: [facility] 01-25-2022 11:03-0400 Heart rate 88 /min Viv Hooper PA-C Work Phone: [facility] 01-25-2022 11:03-0400 Respiratory rate 18 /min Viv LANDRY-C Work Phone: [facility] 01-25-2022 11:03-0400 Systolic blood pressure 112 mm[Hg] Viv LANDRY-C Work Phone: [facility] Encounters Encounter Date Encounter Type Care Provider Facility Start: 08-29-2023 End: 08-29-2023 ambulatory JULI SHAIKH Facility:[facility] Start: 08-29-2023 End: 08-29-2023 Nursing evaluation of patient and report Mi Nurse Work Phone: [facility] Procedures Date Procedure Procedure Detail Performing Clinician Start: 07-26-2023 US THYROID BIOPSY LE FT (POC) SURG USE ONLY Williams Bernardo MD Work Phone: Start: 07-26-2023 US THYROID BIOPSY RI GHT (POC) SURG USE ONLY Williams Bernardo MD Work Phone: Start: 06-13-2023 Us soft tissue head & neck real time imge docm Juli Shaikh MD Work Phone: Plan of Treatment Date Care Activity Detail Author Start: 07-19-2024 Annual PCP Team Chronic Disease Visit Annual PCP Team Chronic Disease Visit [facility] Start: 06-11-2024 3 comp foot exam completed Diabetic Foot Exam [facility] Start: 06-11-2024 Annual PCP Team Chronic Disease Visit Annual PCP Team Chronic Disease Visit [facility] Start: 06-11-2024 Diabetic foot examination Diabetic Foot Exam [facility] Start: 06-11-2024 Hepatitis B screening Urine Albumin:Creatinine Ratio [facility] Start: 06-11-2024 Hepatitis B surface antibody level LDL Cholesterol [facility] Start: 03-22-2024 Urine microalbumin profile [facility] Start: 01-28-2024 Hepatitis B Vaccine (3 of 3 - Hep B Twinrix 3-dose series) Hepatitis B Vaccine (3 of 3 - Hep B Twinrix 3-dose series) [facility] Start: 10-26-2023 Hemoglobin A1c measurement HbA1C [facility] Start: 10-26-2023 Hemoglobin A1c/Hemoglobin.total in Blood HBA1C [facility] Start: 08-14-2023 ANNUAL PCP TEAM CHRONIC DISEASE VISIT ANNUAL PCP TEAM CHRONIC DISEASE VISIT [facility] Start: 08-14-2023 BP CONTROLLED (<130/80) BP CONTROLLED (<130/80) [facility] in Start: 07-09-2023 Hepatitis B Vaccine (2 of 3 - Hep B Twinrix 3-dose series) Hepatitis B Vaccine (2 of 3 - Hep B Twinrix 3-dose series) [facility] Start: 07-06-2023 ANNUAL PCP TEAM CHRONIC DISEASE VISIT ANNUAL PCP TEAM CHRONIC DISEASE VISIT [facility] Start: 07-06-2023 BP CONTROLLED (<130/80) BP CONTROLLED (<130/80) [facility] in Start: 07-06-2023 Hepatitis B surface antibody level LDL CHOLESTEROL [facility] Start: 05-17-2023 Covid-19 Vaccine () Covid-19 Vaccine () [facility] Start: 05-17-2023 Influenza vaccination [facility] Start: 01-25-2023 3 comp foot exam completed DIABETIC FOOT EXAM [facility] Start: 01-25-2023 ANNUAL PCP TEAM CHRONIC DISEASE VISIT ANNUAL PCP TEAM CHRONIC DISEASE VISIT [facility] Start: 01-04-2023 Hemoglobin A1c/Hemoglobin.total in Blood HBA1C [facility] Start: 11-23-2022 ANNUAL PCP TEAM CHRONIC DISEASE VISIT ANNUAL PCP TEAM CHRONIC DISEASE VISIT [facility] Start: 11-23-2022 Hepatitis B screening URINE ALBUMIN:CREATININE RATIO [facility] Start: 11-23-2022 Hepatitis B surface antibody level LDL CHOLESTEROL [facility] Start: 08-10-2022 End: 10-10-2022 Sodium [Moles/volume] in Serum or Plasma SODIUM/NA BLD Lab Routine Hyponatremia Expected: 08/10/2022, Expires: 10/10/2022 [facility] Work Phone: Immunizations Immunization Date Immunization Notes Care Provider Aaron ulrich 08-29-2023 hepatitis A and hepatitis B vaccine Fl Nurse Work Phone: [facility] Work Phone: 06-11-2023 hepatitis A and hepatitis B vaccine Juli Shaikh MD Work Phone: [facility] 06-22-2021 COVID-19 vaccine, ag e 12+ yr (PFIZER-BIONTECH - PURPLE TOP) Viv Hooper PA-C Work Phone: [facility] 06-22-2021 influenza, injectabl e, quadrivalent, contains preservative Viv Hooper PA-C Work Phone: [facility] 06-22-2021 influenza virus vaccine, unspecified formulation Juli Shaikh MD Work Phone: [facility] 12-31-2020 pneumococcal conjuga te vaccine, 13 valent Viv Hooper PA-C Work Phone: [facility] 12-16-2020 COVID-19 vaccine, ag e 12+ yr (PFIZER-BIONTECH - PURPLE TOP) Viv Hooper PA-C Work Phone: [facility] Work Phone: 11-25-2020 COVID-19 vaccine, ag e 12+ yr (PFIZER-BIONTECH - PURPLE TOP) Viv Hooper PA-C Work Phone: [facility] Work Phone: 06-16-2018 influenza, injectabl e, quadrivalent, contains preservative Viv Hooper PA-C Work Phone: [facility] 06-26-2017 influenza, seasonal, injectable Viv Hooper PA-C Work Phone: [facility] 03-22-2014 tetanus toxoid, redu james diphtheria toxoid, and acellular pertussis vaccine, adsorbed Viv Hooper PA-C Work Phone: [facility] 08-07-2013 influenza virus vaccine, unspecified formulation Viv Hooper PA-C Work Phone: [facility] Payers Date Payer Category Payer Unknown MMO MMO [employer] [id number] 2019-Present [phone] [address] [place] [address] PPO [id number] 2019 Unknown [id number] 2019 Unknown [id number] Social History Date Type Detail Facility Start: 03-26-2011 End: 08-14-2022 Tobacco smoking status NHIS Ex-smoker [facility] End: 09-15-2008 History of tobacco use Current smoker [facility] End: 09-15-2008 History of tobacco use Cigarette Smoker [facility] Start: 11-23-2021 End: 08-01-2023 Alcohol intake Current non-drinker of alcohol (finding) [facility] Start: 11-23-2021 End: 06-10-2023 Alcohol intake [facility] Start: 11-30-2020 History SDOH Alcohol Frequency 1 [facility] Start: 03-26-2011 History SDOH Alcohol Comment states that he used to drink a lot [facility] Start: 11-30-2020 History SDOH Social Connections Phone 2 [facility] Start: 11-30-2020 History SDOH Social Connections Living 8 [facility] Start: 11-30-2020 History SDOH Physical Activity DPW 0 [facility] Start: 11-30-2020 History SDOH Financial 5 [facility] Start: 1975 Sex Assigned At Not on file [facility] Start: 12-10-2021 End: 12-20-2021 Exposure to SARS-CoV-2 (event) Unable to assess [facility] Work Phone: Start: 12-24-2021 End: 08-14-2022 Exposure to SARS-CoV-2 (event) Not sure [facility] Start: 03-26-2011 End: 08-14-2022 Tobacco use and exposure Smokeless tobacco non-user [facility] Work Phone: Start: 08-14-2022 Tobacco Comment Quit 2007 [facility] Start: 11-30-2020 End: 06-10-2023 Social connection and isolation panel [facility] Do you belong to any clubs or organizations such as uatsdin groups, unions, fraternal or athletic groups, or school groups? No [facility] Are you now , , , , never or living with a partner? Living with partner [facility] How often to you hav e a drink containing alcohol? Never [facility] How many standard dr inks containing alcohol do you have on a typical day? 1 or 2 [facility] How hard is it for y ou to pay for the very basics like food, housing, medical care, and heating Not hard at all [facility] Do you feel stress - tense, restless, nervous, or anxious, or unable to sleep at night because your mind is troubled all the time - these days [OSQ] Only a little [facility] (I/We) worried jose er (my/our) food would run out before (I/we) got money to buy more. Never true [facility] Start: 01-24-2021 Gender identity Identifies as male gender (finding) [facility] Work Phone: Start: 01-24-2021 Sexual orientation Heterosexual (finding) [facility] Work Phone: Are you now , , , , never or living with a partner? [facility] How often to you hav e a drink containing alcohol? Monthly or less [facility] Do you feel stress - tense, restless, nervous, or anxious, or unable to sleep at night because your mind is troubled all the time - these days [OSQ] Very much [facility] Medical Equipment Procedure Code Equipment Code Equipment Origin al Text Equipment Identifier Dates Test blood sugar (s) 2-3 times daily. Dx: Type 2 DM - Uncontrolled E11.65 Insulin: No Start: 12-14-2020 End: 06-11-2023 Clinical Notes 12-01-2020 to 08-29-2023 Pau Weston LPN - 08/29/2023 3:45 PM ESTTelephone Encounter - Juli Shaikh MD - 08/14/2023 1:03 PM ESTTelephone Encounter - Deborah Kennedy LPN - 08/14/2023 9:09 AM EST Note Date & Type Note Facility 08-29-2023 Note HNO ID: [id number] Author: Pau Weston LPN Service: ? Author Type: ? Type: Progress Notes Filed: 08/29/2023 3:46 PM Note Text: Patient presents for Twinrix vaccine. Denies any problems at this time. Tolerated injection well. Pau Weston LPN [facility] 08-29-2023 History of Presen t illness Narrative Patient presents for Twinrix vaccine. Denies any problems at this time. Tolerated injection well. Pau Weston LPN documented in this encounter [facility] 08-14-2023 Miscellaneous Notes The following approved medication requests have been transmitted electronically. Requested Prescriptions Signed Prescriptions Disp Refills fluticasone (FLONASE) 50 mcg/actuation nasal spray 1 Each 3 Sig: Use 2 Sprays in each nostril once daily. Rinse mouth after use. Authorizing Provider: JULI SHAIKH MD Patient has been identified by name and date of : Yes Patient phones for refill(s): Requested Prescriptions Pending Prescriptions Disp Refills fluticasone (FLONASE) 50 mcg/actuation nasal spray 1 Each 3 Sig: Use 2 Sprays in each nostril once daily. Rinse mouth after use. Date of last office visit in primary care: 07/19/2023 Date of next office visit in primary care: 08/22/2023 Please advise. Thank you. Deborah Kennedy LPN. documented in this encounter [facility] 08-03-2023 Note HNO ID: [id number] Author: Williams Bernardo MD Service: ? Author Type: Physician Type: Progress Notes Filed: 08/03/2023 10:00 AM Note Text: Preoperative diagnosis: Multinodular goiter Postoperative diagnosis: The same Procedure: Ultrasound-guided fine-needle aspiration of the thyroid bilaterally (2 nodules on the left one nodule on the right) Surgeon: Willis Procedure: Ultrasound of the left thyroid gland revealed a mid left lesion approximately 2.3 cm in greatest diameter. The skin was prepped with alcohol. 1% lidocaine plain was injected. Under ultrasound guidance 3 passes with a 22-gauge needle were performed. These were plated on glass slides and Afirma test was ordered Ultrasound of the left thyroid gland in the left mid thyroid revealed a 2.7 cm nodule skin was prepped with alcohol. 1% lidocaine plain was injected. Under ultrasound guidance 3 passes with a 22-gauge needle were performed these were plated on glass slides and affirm a test was ordered. Ultrasound of the right thyroid gland inferiorly revealed a 1.7 cm nodule. The skin was prepped with alcohol. 1% lidocaine plain was injected. Under ultrasound guidance 3 passes with a 22-gauge needle were performed. These were plated on glass slides and affirm a test was ordered. Sterile dressings were applied. Patient tolerated the procedure well. [facility] 08-03-2023 History of Presen t illness Narrative Preoperative diagnosis: Multinodular goiter Postoperative diagnosis: The same Procedure: Ultrasound-guided fine-needle aspiration of the thyroid bilaterally (2 nodules on the left one nodule on the right) Surgeon: Willis Procedure: Ultrasound of the left thyroid gland revealed a mid left lesion approximately 2.3 cm in greatest diameter. The skin was prepped with alcohol. 1% lidocaine plain was injected. Under ultrasound guidance 3 passes with a 22-gauge needle were performed. These were plated on glass slides and Afirma test was ordered Ultrasound of the left thyroid gland in the left mid thyroid revealed a 2.7 cm nodule skin was prepped with alcohol. 1% lidocaine plain was injected. Under ultrasound guidance 3 passes with a 22-gauge needle were performed these were plated on glass slides and affirm a test was ordered. Ultrasound of the right thyroid gland inferiorly revealed a 1.7 cm nodule. The skin was prepped with alcohol. 1% lidocaine plain was injected. Under ultrasound guidance 3 passes with a 22-gauge needle were performed. These were plated on glass slides and affirm a test was ordered. Sterile dressings were applied. Patient tolerated the procedure well. UNIVERSAL PROTOCOL / SAFETY CHECKLIST Procedure to be Performed: Ultrasound Guided Fine Needle Aspiration Thyroid bilateral Sign In: A Moment of CARE was completed. Personnel directly involved with the procedure wore the appropriate PPE (Personal Protective Equipment). No special equipment needed. Patient/Surrogate Stated/Verified: PATIENT VERIFIED(optional for EMERGENT procedures): Patient name, Date of , Relevant allergies, and The intended procedure Time Out Communication: Intended patient and procedure match the source documents. Consent documented and matches the intended procedure. Relevant labs, photos, and/or imaging studies have been reviewed. Correct side/site marked and visible. Medications required for procedure verified. No fire risk assessment and interventions applicable. No implant(s) inserted. Sign Out: SIGN OUT (optional for EMERGENT procedures): All specimen containers correctly labeled. No instruments, equipment or retained foreign bodies applicable. Clari Leigh LPN documented in this encounter [facility] 08-01-2023 Note HNO ID: [id number] Author: Williams Bernardo MD Service: ? Author Type: Physician Type: Progress Notes Filed: 08/01/2023 2:07 PM Note Text: Subjective: Patient is status post fine-needle aspiration of both his right and left thyroid gland. All of these came back consistent with a benign colloid nodule. Objective:There were no vitals taken for this visit. Neck is supple no hard palpable nodules are identified. Assessment: Multinodular goiter Plan: Patient will need to have yearly thyroid ultrasounds if the nodules grow by more than 20% repeat fine-needle aspirations will need to be performed. [facility] 08-01-2023 History of Presen t illness Narrative Subjective: Patient is status post fine-needle aspiration of both his right and left thyroid gland. All of these came back consistent with a benign colloid nodule. Objective:There were no vitals taken for this visit. Neck is supple no hard palpable nodules are identified. Assessment: Multinodular goiter Plan: Patient will need to have yearly thyroid ultrasounds if the nodules grow by more than 20% repeat fine-needle aspirations will need to be performed. documented in this encounter [facility] 07-26-2023 Note HNO ID: [id number] Author: Clari Leigh LPN Service: ? Author Type: LICENSED NURSE Type: Progress Notes Filed: 08/03/2023 10:00 AM Note Text: UNIVERSAL PROTOCOL / SAFETY CHECKLIST Procedure to be Performed: Ultrasound Guided Fine Needle Aspiration Thyroid bilateral Sign In: A Moment of CARE was completed. Personnel directly involved with the procedure wore the appropriate PPE (Personal Protective Equipment). No special equipment needed. Patient/Surrogate Stated/Verified: PATIENT VERIFIED(optional for EMERGENT procedures): Patient name, Date of , Relevant allergies, and The intended procedure Time Out Communication: Intended patient and procedure match the source documents. Consent documented and matches the intended procedure. Relevant labs, photos, and/or imaging studies have been reviewed. Correct side/site marked and visible. Medications required for procedure verified. No fire risk assessment and interventions applicable. No implant(s) inserted. Sign Out: SIGN OUT (optional for EMERGENT procedures): All specimen containers correctly labeled. No instruments, equipment or retained foreign bodies applicable. Clari Leigh LPN [facility] 07-26-2023 Instructions Clari Leigh LPN - 07/26/2023 3:56 PM EST The following instructions are important for you related to your office visit today with the [facility]. Instructions After THYROID FINE NEEDLE ASPIRATION Please do not take aspirin or other blood thinners for the next few days. If you have bleeding from the needle site, hold pressure with a clean gauze. If the bleeding continues, contact our office immediately. I recommend taking Advil or Tylenol for the discomfort. An ice pack may improve your discomfort to the area. Contact our office immediately if you have any questions or concerns @ [phone]. Please make an appointment to follow up in one week with your physician and thank you for choosing the [facility]. If you note any additional difficulties, questions, or concerns, you should contact our office immediately @ [phone] and ask to be transferred to the General Surgery department. documented in this encounter [facility] 07-19-2023 Note HNO ID: [id number] Author: Williams Bernardo MD Service: ? Author Type: Physician Type: Progress Notes Filed: 07/19/2023 2:15 PM Note Text: HISTORY AND PHYSICAL Alex Burks 1975 REFERRING PHYSICIAN: Juli Shaikh MD CHIEF COMPLAINT: Consult (Multiple thyroids nodules) HPI: The patient is a 47 year old male with a complaint of a bilateral thyroid nodule. This thyroid nodule was found on Ultrasound by [facility]. The patient denies pain, denies difficulty swallowing, deniesrapid enlargement of the neck, deniesdysphagia, denies a change in the voice, denies hot or cold intolerence. The patient has not a prior history of neck radiation treatment. NODULE 1: Location: Inferior right Size: 1.7 x 1.5 x 1.3 cm cm Characteristics: Composition: Solid or almost completely solid, 2 points Echogenicity: Hypoechoic, 2 points Shape: Zaszp-[id number], 0 points Margin: Smooth, 0 points Echogenic foci (add points for all that apply): None, 0 points Internal vascularity: absent Interval growth: No significant growth given differences in technique TI-RADS Category: TR4 ACR Recommendation: TI-RADS 4 nodule. FNA is recommended. NODULE 2: Location: Mid left Size: 2.7 x 2 x 1.9 cm. Previous 2.6 x 1.3 x 1.3 Characteristics: Composition: Solid or almost completely solid, 2 points Echogenicity: Hypoechoic, 2 points Shape: [id number]-[id number], 0 points Margin: Smooth, 0 points Echogenic foci (add points for all that apply): None, 0 points Internal vascularity: absent Interval growth: Significant interval growth (20% increase in at least two nodule dimensions and a minimal increase of 2 mm, or a 50% or greater increase in volume). TI-RADS Category: TR4 ACR Recommendation: TI-RADS 4 nodule. FNA is recommended. NODULE 3: Location: Mid left medial Size: 2.3 x 1.9 x 1.4 cm. Previously 2 x 1.7 x 1.3 Characteristics: Composition: Solid or almost completely solid, 2 points Echogenicity: Hypoechoic, 2 points Shape: Gngim-pgrb-vulz, 0 points Margin: Smooth, 0 points Echogenic foci (add points for all that apply): None, 0 points Internal vascularity: present Interval growth: No significant growth given differences in technique TI-RADS Category: TR4 ACR Recommendation: TI-RADS 4 nodule. FNA is recommended. The patient is being seen by me today at the request of Dr. Juli Shaikh MD for my opinion and advice regarding Multiple thyroid nodules Multinodular goiter (primary encounter diagnosis). PAST MEDICAL HISTORY Diagnosis Date Bipolar depression (HCC) 04/15/2017 Depression 03/26/2011 Elevated LFTs 02/13/2019 Erectile dysfunction 06/06/2018 Essential hypertension 01/30/2012 Ex-smoker 06/06/2018 Started at age 13 up to 2 PPD and quit 2011 (48 pack year Hx) Family history of NH (myocardial infarction) 06/06/2018 Fatty liver 02/20/2019 GERD (gastroesophageal reflux disease) 03/26/2011 History of bee sting allergy 03/26/2011 Hypercalcemia 02/26/2020 Re-checked 02/2020 Mixed hyperlipidemia 06/06/2018 Moderate obstructive sleep apnea 12/31/2020 Multiple thyroid nodules 11/27/2021 US 11/2021. Repeat in 1 year Location: Inferior right thyroid lobe Size: 1.4 x 1.4 x 1.2 cm Location: Left mid thyroid lobe anteriorly Size: 1.9 x 1.7 x 1.3 cm Seasonal allergic rhinitis 11/23/2021 Dr. santana Tremor 02/26/2019 Since starting psych medication Type 2 diabetes mellitus with diabetic polyneuropathy, without long-term current use of insulin (HCC) 02/29/2020 Uncontrolled type 2 diabetes mellitus with hyperglycemia (HCC) 10/27/2021 PAST SURGICAL HISTORY Procedure Laterality Date APPENDECTOMY 2001? Current Outpatient Medications Medication Sig Dispense Refill flash glucose sensor (FREESTYLE JENNIFER 2 SENSOR) kit 1 Each every 2 weeks. 2 Each 11 metFORMIN (GLUCOPHAGE) 500 mg tablet Take one in the AM and one in the PM. 270 tablet 1 atorvastatin (LIPITOR) 10 mg tablet Take 1 tablet by mouth daily at bedtime. For cholesterol. 30 tablet 5 metoprolol succinate ER (TOPROL XL) 100 mg Take 1 tablet by mouth once daily. 30 tablet 5 lisinopril (ZESTRIL) 20 mg tablet Take 1 tablet by mouth once daily. 30 tablet 5 EPINEPHrine (EPIPEN) 0.3 mg/0.3 mL auto-injector Inject 0.3 mL intramuscularly as needed. [address] (DEPAKOTE) 500 mg EC tablet Take 3 tablets by mouth once daily. Dr. Green gabapentin (NEURONTIN) 300 mg capsule Take 1 capsule by mouth twice daily for 180 days. 180 capsule 1 famotidine (PEPCID) 20 mg tablet Take 1 tablet by mouth twice daily as needed. 180 tablet 1 colestipol (COLESTID) 1 gram tablet Take 2 tablets by mouth twice daily. 120 tablet 5 fluticasone (FLONASE) 50 mcg/actuation nasal spray Use 2 Sprays in each nostril once daily. Rinse mouth after use. 1 Each 3 loratadine (CLARITIN) 10 mg tablet Take 10 mg by mouth once daily. busPIRone (BUSPAR) 5 mg tablet Take 10 mg by mouth three times daily. Dr. Powell (more content not included)... [facility] 07-19-2023 Note HNO ID: [id number] Author: Jessica Frances APRN.SENIOR ACCOUNTANT CPA Service: ? Author Type: Nurse Practitioner Type: Progress Notes Filed: 07/22/2023 7:48 AM Note Text: Chief Complaint No chief complaint on file. HPI Alex Burks is a 47 year old male who presents here today for Above Complaints.. Patient presents for BP check, reporting episode of chest pain this am. Past medical history, appointments, medications, allergies reviewed. Previous Medical History PAST MEDICAL HISTORY Diagnosis Date Bipolar depression (HCC) 04/15/2017 Depression 03/26/2011 Elevated LFTs 02/13/2019 Erectile dysfunction 06/06/2018 Essential hypertension 01/30/2012 Ex-smoker 06/06/2018 Started at age 13 up to 2 PPD and quit 2011 (48 pack year Hx) Family history of NH (myocardial infarction) 06/06/2018 Fatty liver 02/20/2019 GERD (gastroesophageal reflux disease) 03/26/2011 History of bee sting allergy 03/26/2011 Hypercalcemia 02/26/2020 Re-checked 02/2020 Mixed hyperlipidemia 06/06/2018 Moderate obstructive sleep apnea 12/31/2020 Multiple thyroid nodules 11/27/2021 US 11/2021. Repeat in 1 year Location: Inferior right thyroid lobe Size: 1.4 x 1.4 x 1.2 cm Location: Left mid thyroid lobe anteriorly Size: 1.9 x 1.7 x 1.3 cm Seasonal allergic rhinitis 11/23/2021 Dr. santana Tremor 02/26/2019 Since starting psych medication Type 2 diabetes mellitus with diabetic polyneuropathy, without long-term current use of insulin (HCC) 02/29/2020 Uncontrolled type 2 diabetes mellitus with hyperglycemia (HCC) 10/27/2021 Previous Surgical History PAST SURGICAL HISTORY Procedure Laterality Date APPENDECTOMY 2001? Family History FAMILY HISTORY Problem Relation Age of Onset Hypertension Mother Heart Father in his 50's Colon Cancer Father 71 Colon Cancer Paternal Grandmother 70 Coronary Artery Disease Paternal Grandfather 50-55 Diabetes Paternal Uncle Coronary Artery Disease Paternal Uncle Stroke Paternal Uncle Stroke Paternal Uncle Alzheimer's Disease No Family History Breast Cancer No Family History Ovarian cancer No Family History Prostate Cancer No Family History Seizures No Family History Thyroid No Family History Kidney Disease No Family History Patient Allergies ALLERGIES Allergen Reactions Bees Swelling House Dust Other: See Comments Per ENT Current Medications Current Outpatient Medications on File Prior to Visit Medication Sig flash glucose sensor (FREESTYLE JENNIFER 2 SENSOR) kit 1 Each every 2 weeks. metFORMIN (GLUCOPHAGE) 500 mg tablet Take one in the AM and one in the PM. atorvastatin (LIPITOR) 10 mg tablet Take 1 tablet by mouth daily at bedtime. For cholesterol. metoprolol succinate ER (TOPROL XL) 100 mg Take 1 tablet by mouth once daily. lisinopril (ZESTRIL) 20 mg tablet Take 1 tablet by mouth once daily. EPINEPHrine (EPIPEN) 0.3 mg/0.3 mL auto-injector Inject 0.3 mL intramuscularly as needed. divalproex DR (DEPAKOTE) 500 mg EC tablet Take 3 tablets by mouth once daily. Dr. Green gabapentin (NEURONTIN) 300 mg capsule Take 1 capsule by mouth twice daily for 180 days. famotidine (PEPCID) 20 mg tablet Take 1 tablet by mouth twice daily as needed. colestipol (COLESTID) 1 gram tablet Take 2 tablets by mouth twice daily. fluticasone (FLONASE) 50 mcg/actuation nasal spray Use 2 Sprays in each nostril once daily. Rinse mouth after use. loratadine (CLARITIN) 10 mg tablet Take 10 mg by mouth once daily. busPIRone (BUSPAR) 5 mg tablet Take 10 mg by mouth three times daily. Dr. Powell Vwvoz-0-DPN-EPA-Fish Oil (FISH OIL) 1,000 mg (120 mg-180 mg) cap Take 2 capsules by mouth once daily. risperiDONE (RISPERDAL) 2 mg tablet Take 4 mg by mouth once daily. Take 1 mg and 4 mg daily - [address] Powell LACTOBACILLUS RHAMNOSUS GG (CULTURELLE ORAL) Take 1 capsule by mouth once daily. multivitamin tablet Take 1 tablet by mouth once daily. No current facility-administered medications on file prior to visit. Social History Social History Tobacco Use Smoking status: Former Packs/day: 2.00 Years: 12.00 Additional pack years: 0.00 Total pack years: 24.00 Types: Cigarettes Quit date: 09/15/2008 Years since quittin.8 Smokeless tobacco: Never Tobacco comments: Quit 2007 Vaping Use Vaping Use: Never used Substance Use Topics Alcohol use: No Alcohol/week: 0.0 standard drinks of alcohol Comment: states that he used to drink a lot Drug use: No Review of Symptoms REVIEW OF SYSTEMS SEE HPI EXAM: BP 146/94 Pulse 89 Temp 37 ?C (98.6 ?F) Resp 16 Wt 101.3 kg (223 lb 6.4 oz) SpO2 97% BMI 29.07 kg/m? General Appearance: Ill appearing, pale and clammy skin. Health Maintenance List Dilated Retinal Exam Never done BP Controlled (<130/80) Never done Colorectal Cancer Screening Never done Pneumococcal Vaccine(2 - PPSV23 or PCV20) due on 02/25/2021 Influenza Vaccine(1) due on 05/17/2023 Covid-19 (more content not included)... [facility] 07-19-2023 History of Presen t illness Narrative Chief Complaint No chief complaint on file. HPI Alex Burks is a 47 year old male who presents here today for Above Complaints.. Patient presents for BP check, reporting episode of chest pain this am. Past medical history, appointments, medications, allergies reviewed. Previous Medical History PAST MEDICAL HISTORY Diagnosis Date Bipolar depression (HCC) 04/15/2017 Depression 03/26/2011 Elevated LFTs 02/13/2019 Erectile dysfunction 06/06/2018 Essential hypertension 01/30/2012 Ex-smoker 06/06/2018 Started at age 13 up to 2 PPD and quit 2011 (48 pack year Hx) Family history of NH (myocardial infarction) 06/06/2018 Fatty liver 02/20/2019 GERD (gastroesophageal reflux disease) 03/26/2011 History of bee sting allergy 03/26/2011 Hypercalcemia 02/26/2020 Re-checked 02/2020 Mixed hyperlipidemia 06/06/2018 Moderate obstructive sleep apnea 12/31/2020 Multiple thyroid nodules 11/27/2021 US 11/2021. Repeat in 1 year Location: Inferior right thyroid lobe Size: 1.4 x 1.4 x 1.2 cm Location: Left mid thyroid lobe anteriorly Size: 1.9 x 1.7 x 1.3 cm Seasonal allergic rhinitis 11/23/2021 Dr. santana Tremor 02/26/2019 Since starting psych medication Type 2 diabetes mellitus with diabetic polyneuropathy, without long-term current use of insulin ([facility]) 02/29/2020 Uncontrolled type 2 diabetes mellitus with hyperglycemia ([facility]) 10/27/2021 Previous Surgical History PAST SURGICAL HISTORY Procedure Laterality Date APPENDECTOMY 2001? Family History FAMILY HISTORY Problem Relation Age of Onset Hypertension Mother Heart Father in his 50's Colon Cancer Father 71 Colon Cancer Paternal Grandmother 70 Coronary Artery Disease Paternal Grandfather 50-55 Diabetes Paternal Uncle Coronary Artery Disease Paternal Uncle Stroke Paternal Uncle Stroke Paternal Uncle Alzheimer's Disease No Family History Breast Cancer No Family History Ovarian cancer No Family History Prostate Cancer No Family History Seizures No Family History Thyroid No Family History Kidney Disease No Family History Patient Allergies ALLERGIES Allergen Reactions Bees Swelling House Dust Other: See Comments Per ENT Current Medications Current Outpatient Medications on File Prior to Visit Medication Sig flash glucose sensor (FREESTYLE JENNIFER 2 SENSOR) kit 1 Each every 2 weeks. metFORMIN (GLUCOPHAGE) 500 mg tablet Take one in the AM and one in the PM. atorvastatin (LIPITOR) 10 mg tablet Take 1 tablet by mouth daily at bedtime. For cholesterol. metoprolol succinate ER (TOPROL XL) 100 mg Take 1 tablet by mouth once daily. lisinopril (ZESTRIL) 20 mg tablet Take 1 tablet by mouth once daily. EPINEPHrine (EPIPEN) 0.3 mg/0.3 mL auto-injector Inject 0.3 mL intramuscularly as needed. divalproex DR (DEPAKOTE) 500 mg EC tablet Take 3 tablets by mouth once daily. Dr. Green gabapentin (NEURONTIN) 300 mg capsule Take 1 capsule by mouth twice daily for 180 days. famotidine (PEPCID) 20 mg tablet Take 1 tablet by mouth twice daily as needed. colestipol (COLESTID) 1 gram tablet Take 2 tablets by mouth twice daily. fluticasone (FLONASE) 50 mcg/actuation nasal spray Use 2 Sprays in each nostril once daily. Rinse mouth after use. loratadine (CLARITIN) 10 mg tablet Take 10 mg by mouth once daily. busPIRone (BUSPAR) 5 mg tablet Take 10 mg by mouth three times daily. Dr. Powell Ccgfk-5-TEB-EPA-Fish Oil (FISH OIL) 1,000 mg (120 mg-180 mg) cap Take 2 capsules by mouth once daily. risperiDONE (RISPERDAL) 2 mg tablet Take 4 mg by mouth once daily. Take 1 mg and 4 mg daily - [address] Powell LACTOBACILLUS RHAMNOSUS GG (CULTURELLE ORAL) Take 1 capsule by mouth once daily. multivitamin tablet Take 1 tablet by mouth once daily. No current facility-administered medications on file prior to visit. Social History Social History Tobacco Use Smoking status: Former Packs/day: 2.00 Years: 12.00 Additional pack years: 0.00 Total pack years: 24.00 Types: Cigarettes Quit date: 09/15/2008 Years since quittin.8 Smokeless tobacco: Never Tobacco comments: Quit 2008 Vaping Use Vaping Use: Never used Substance Use Topics Alcohol use: No Alcohol/week: 0.0 standard drinks of alcohol Comment: states that he used to drink a lot Drug use: No Review of Symptoms REVIEW OF SYSTEMS SEE HPI EXAM: BP 146/94 Pulse 89 Temp 37 C (98.6 F) Resp 16 Wt 101.3 kg (223 lb 6.4 oz) SpO2 97% BMI 29.07 kg/m General Appearance: Ill appearing, pale and clammy skin. Health Maintenance List Dilated Retinal Exam Never done BP Controlled (<130/80) Never done Colorectal Cancer Screening Never done Pneumococcal Vaccine(2 - PPSV23 or PCV20) due on 02/25/2021 Influenza Vaccine(1) due on 05/17/2023 Covid-19 Vaccine(4 - season) due on 05/17/2023 Hepatitis B Vaccine(2 of 3 - Hep B Twinrix 3-dose series) due on 07/09/2023 HbA1C due on 10/26/2023 DTaP,Tdap,Td Vaccine(2 - Td or Tdap) due on 03/22/2024 Urine Albumin:Creatinine Ratio due on 06/11/2024 LDL Cholesterol due on 06/11/2024 Diabetic Foot Exam due on 06/11/2024 Annual PCP Team Chronic Disease Visit due on 06/11/2024 Hepatitis C Screening Completed HIV Screening Discontinued ASSESSMENT/PLAN: 1. Mixed hyperlipidemia - ICD9: 272.2, ICD10: E78.2 (primary diagnosis) 2. Family history of NH (myocardial infarction) - ICD9: V17.3, ICD10: Z82.49 3. Essential hypertension - ICD9: 401.9, ICD10: I10 Patient sent to ER, declined EMS transport. Jessica Frances APRN, XIN documented in this encounter [facility] 07-11-2023 Miscellaneous Notes Pharmacy was contacted and verified that refills are available. Tried to contact patient but number was asking for a conference call number. Sent a Isai chart message to patient. Nupur Edmondson MA documented in this encounter [facility] 06-18-2023 Note HNO ID: [id number] Author: Barbie Medina LPCC Service: ? Author Type: Therapist Type: Progress Notes Filed: 06/18/2023 8:31 AM Note Text: Behavioral Health Social Work Progress Note Patient identified for [facility] from: PCP Reason for referral: Resources Behavioral Health Resources: Psychiatry med management [facility] encounter type: MyChart Message Attempts to Outreach: 3 attempts Referral made: Psychiatry - External Psychiatry-External referral type: Medication Management Reason for external referral: Wait times at [facility] too long, Patient choice Final Disposition: Resources given Patient Discharged?: Yes Patient reported that caregiver was able to meet their needs today?: N/A therapist sent patient MyChart follow up message offering assistance with linkage to behavioral health services. Barbie Medina PSYCHIATRIC-S June 18, 2023 [facility] 06-14-2023 Miscellaneous Notes Pt called and is notified of providers results and instructions. Pt voices understanding. Transferred to [facility] to set up appt with Dr Bernardo. Regina Ramirez, RN Let patient know the thyroid US shows an increase in size of one of his nodules that requires biopsy. Order placed to see Dr. bernardo documented in this encounter [facility] 06-14-2023 Miscellaneous Notes SW sent resources to patient via my chart. Pt wants to be seen with behavioral health documented in this encounter [facility] 06-13-2023 Note HNO ID: [id number] Author: Cary Rodarte RDMS Service: ? Author Type: It Integration Architect Type: Progress Notes Filed: 06/13/2023 1:15 PM Note Text: Radiology Service Progress Note PATIENT NAME: Alex Burks DATE OF SERVICE: June 13, 2023 TIME: 1:15 PM PATIENT IDENTITY VERIFICATION COMPLETED USING TWO (2) IDENTIFIERS: Name and Date of confirmed by patient verbally. FALL SCREENING: Has the patient had 2 falls in the last year or 1 fall with injury or currently using an Ambulatory Assistive Device (Walker, Cane, Wheelchair, Crutches, etc.)? No PATIENT GENDER DATA: Male PATIENT RELEVANT IMPLANT DATA REVIEWED: Not Applicable RADIOLOGY DEPARTMENT: Ultrasound PERIPHERAL IV DATA: Not applicable SIGNED BY: Cary Rodarte RDMS June 13, 2023 1:15 PM [facility] 06-13-2023 History of Presen t illness Narrative Radiology Service Progress Note PATIENT NAME: Alex Burks DATE OF SERVICE: June 13, 2023 TIME: 1:15 PM PATIENT IDENTITY VERIFICATION COMPLETED USING TWO (2) IDENTIFIERS: Name and Date of confirmed by patient verbally. FALL SCREENING: Has the patient had 2 falls in the last year or 1 fall with injury or currently using an Ambulatory Assistive Device (Walker, Cane, Wheelchair, Crutches, etc.)? No PATIENT GENDER DATA: Male PATIENT RELEVANT IMPLANT DATA REVIEWED: Not Applicable RADIOLOGY DEPARTMENT: Ultrasound PERIPHERAL IV DATA: Not applicable SIGNED BY: Cary Rodarte RDMS June 13, 2023 1:15 PM documented in this encounter [facility] 06-11-2023 Note HNO ID: [id number] Author: Juli Shaikh MD Service: ? Author Type: Physician Type: Progress Notes Filed: 06/11/2023 12:36 PM Note Text: Chief Complaint Patient presents with: Physical HPI Alex Burks is a 47 year old male who presents here today for Medication follow up. Patient was last seen for chronic health issues 07/06/2022 and was to f/u in [address] Powell for bipolar/anxiety. Patient's buspar 10 mg 3 times daily. Depakote 500 mg 3 times daily. Patient has been experiencing some low sugars at night time. As low at 63. Has the freestyle and alerts him. Patient generally gets up and drinks a soda and it comes back up. Patient has been off the lisinopril for about 2 months. Ran out of the medication No bowel, Gi, or urinary issues. GERD: sx stable on Pepcid 20 mg BID. Lipid: Taking Lipitor 10 mg daily and Colestid 1 gram 2 pills BID, tolerating well. DM: Is taking metformin 500 mg 2 pills BID. Has the [employer] Jennifer to check BS. DM Neuropathy: Is taking Gabapentin 300 mg at bedtime. Not well controlled. Hurts to have water hit his feet in the shower and with trying to wash them. HTN: Taking Toprol xl 100 mg daily and Lisinopril 20 mg daily. Has been off Lisinopril for 2 months because he ran out. Bipolar: Taking Depakote 500 mg 3 pills once daily and Buspar 5 mg BID prn. Seeing Psych Past medical history, appointments, medications, allergies reviewed. Previous Medical History PAST MEDICAL HISTORY Diagnosis Date Bipolar depression (HCC) 04/15/2017 Depression 03/26/2011 Elevated LFTs 02/13/2019 Erectile dysfunction 06/06/2018 Essential hypertension 01/30/2012 Ex-smoker 06/06/2018 Started at age 13 up to 2 PPD and quit 2011 (48 pack year Hx) Family history of NH (myocardial infarction) 06/06/2018 Fatty liver 02/20/2019 GERD (gastroesophageal reflux disease) 03/26/2011 History of bee sting allergy 03/26/2011 Hypercalcemia 02/26/2020 Re-checked 02/2020 Mixed hyperlipidemia 06/06/2018 Moderate obstructive sleep apnea 12/31/2020 Tremor 02/26/2019 Since starting psych medication Type 2 diabetes mellitus without complication, without long-term current use of insulin ([facility]) 02/29/2020 Uncontrolled type 2 diabetes mellitus with hyperglycemia ([facility]) 10/27/2021 Previous Surgical History PAST SURGICAL HISTORY Procedure Laterality Date APPENDECTOMY 2001? Family History FAMILY HISTORY Problem Relation Age of Onset Hypertension Mother Heart Father in his 50's Colon Cancer Paternal Grandmother 70 Diabetes Paternal Uncle Coronary Artery Disease Paternal Uncle Stroke Paternal Uncle Stroke Paternal Uncle Coronary Artery Disease Paternal Grandfather 50-55 Alzheimer's Disease No Family History Breast Cancer No Family History Ovarian cancer No Family History Prostate Cancer No Family History Seizures No Family History Thyroid No Family History Kidney Disease No Family History Patient Allergies ALLERGIES Allergen Reactions House Dust Other: See Comments Per ENT Bees Swelling Current Medications Current Outpatient Medications on File Prior to Visit Medication Sig famotidine (PEPCID) 20 mg tablet Take 1 tablet by mouth twice daily as needed. colestipol (COLESTID) 1 gram tablet Take 2 tablets by mouth twice daily. gabapentin (NEURONTIN) 300 mg capsule Take 1 capsule by mouth daily at bedtime for 90 days. metFORMIN (GLUCOPHAGE) 500 mg tablet Take 2 tablets by mouth twice daily with meals. . fluticasone (FLONASE) 50 mcg/actuation nasal spray Use 2 Sprays in each nostril once daily. Rinse mouth after use. flash glucose sensor (FREESTYLE JENNIFER 2 SENSOR) kit 1 Each every 2 weeks. atorvastatin (LIPITOR) 10 mg tablet Take 1 tablet by mouth daily at bedtime. For cholesterol. metoprolol succinate ER (TOPROL XL) 100 mg Take 1 tablet by mouth once daily. lisinopril (ZESTRIL, PRINIVIL) 20 mg tablet Take 1 tablet by mouth once daily. EPINEPHrine (EPIPEN) 0.3 mg/0.3 mL auto-injector Inject 0.3 mL intramuscularly as needed. ketoconazole (NIZORAL) 2 % cream Apply to affected area once daily. flash glucose scanning reader (FREESTYLE JENNIFER 14 DAY READER) UAD. Dx: uncontrolled type 2 diabetes. No insulin. naproxen (NAPROSYN) 500 mg tablet Take 1 tablet by mouth twice daily as needed (for pain/inflammation). Take with food. loratadine (CLARITIN) 10 mg tablet Take 10 mg by mouth once daily. divalproex DR (DEPAKOTE) 500 mg EC tablet Take 3 tablets by mouth once daily. busPIRone (BUSPAR) 5 mg tablet Take 5 mg by mouth twice daily as needed. Lancets lancets Test blood sugar(s) 2-3 times daily. Dx: Type 2 DM - Uncontrolled E11.65 Insulin: No (Patient not taking: Reported on 06/22/2021 ) blood sugar diagnostic (BLOOD GLUCOSE TEST) test strip Test blood sugar(s) 2-3 times daily. Dx: Type 2 DM - Uncontrolled E11.65 Insulin: No (Patient not taking: Reported on 06/22/2021 ) ProAir RespiClick 90 mcg/actu (more content not included)... [facility] 06-11-2023 Instructions Juli Shaikh MD - 06/11/2023 11:18 AM EDT Check with insurance to see if covering colonoscopies for people 45 and older per new guidelines. Let them know your dad had colon cancer I decreased the metformin to two tabs in the AM and just one in the PM. documented in this encounter [facility] 06-11-2023 History of Presen t illness Narrative Images from the original note were not included. Chief Complaint Patient presents with: Physical HPI Alex Burks is a 47 year old male who presents here today for Medication follow up. Patient was last seen for chronic health issues 07/06/2022 and was to f/u in [address] Powell for bipolar/anxiety. Patient's buspar 10 mg 3 times daily. Depakote 500 mg 3 times daily. Patient has been experiencing some low sugars at night time. As low at 63. Has the Bumble Beezyle and alerts him. Patient generally gets up and drinks a soda and it comes back up. Patient has been off the lisinopril for about 2 months. Ran out of the medication No bowel, Gi, or urinary issues. GERD: sx stable on Pepcid 20 mg BID. Lipid: Taking Lipitor 10 mg daily and Colestid 1 gram 2 pills BID, tolerating well. DM: Is taking metformin 500 mg 2 pills BID. Has the Inclinixyle Jennifer to check BS. DM Neuropathy: Is taking Gabapentin 300 mg at bedtime. Not well controlled. Hurts to have water hit his feet in the shower and with trying to wash them. HTN: Taking Toprol xl 100 mg daily and Lisinopril 20 mg daily. Has been off Lisinopril for 2 months because he ran out. Bipolar: Taking Depakote 500 mg 3 pills once daily and Buspar 5 mg BID prn. Seeing Psych Past medical history, appointments, medications, allergies reviewed. Previous Medical History PAST MEDICAL HISTORY Diagnosis Date Bipolar depression (HCC) 04/15/2017 Depression 03/26/2011 Elevated LFTs 02/13/2019 Erectile dysfunction 06/06/2018 Essential hypertension 01/30/2012 Ex-smoker 06/06/2018 Started at age 13 up to 2 PPD and quit 2011 (48 pack year Hx) Family history of NH (myocardial infarction) 06/06/2018 Fatty liver 02/20/2019 GERD (gastroesophageal reflux disease) 03/26/2011 History of bee sting allergy 03/26/2011 Hypercalcemia 02/26/2020 Re-checked 02/2020 Mixed hyperlipidemia 06/06/2018 Moderate obstructive sleep apnea 12/31/2020 Tremor 02/26/2019 Since starting psych medication Type 2 diabetes mellitus without complication, without long-term current use of insulin (HCC) 02/29/2020 Uncontrolled type 2 diabetes mellitus with hyperglycemia (HCC) 10/27/2021 Previous Surgical History PAST SURGICAL HISTORY Procedure Laterality Date APPENDECTOMY 2001? Family History FAMILY HISTORY Problem Relation Age of Onset Hypertension Mother Heart Father in his 50's Colon Cancer Paternal Grandmother 70 Diabetes Paternal Uncle Coronary Artery Disease Paternal Uncle Stroke Paternal Uncle Stroke Paternal Uncle Coronary Artery Disease Paternal Grandfather 50-55 Alzheimer's Disease No Family History Breast Cancer No Family History Ovarian cancer No Family History Prostate Cancer No Family History Seizures No Family History Thyroid No Family History Kidney Disease No Family History Patient Allergies ALLERGIES Allergen Reactions House Dust Other: See Comments Per ENT Bees Swelling Current Medications Current Outpatient Medications on File Prior to Visit Medication Sig famotidine (PEPCID) 20 mg tablet Take 1 tablet by mouth twice daily as needed. colestipol (COLESTID) 1 gram tablet Take 2 tablets by mouth twice daily. gabapentin (NEURONTIN) 300 mg capsule Take 1 capsule by mouth daily at bedtime for 90 days. metFORMIN (GLUCOPHAGE) 500 mg tablet Take 2 tablets by mouth twice daily with meals. . fluticasone (FLONASE) 50 mcg/actuation nasal spray Use 2 Sprays in each nostril once daily. Rinse mouth after use. flash glucose sensor (FREESTYLE JENNIFER 2 SENSOR) kit 1 Each every 2 weeks. atorvastatin (LIPITOR) 10 mg tablet Take 1 tablet by mouth daily at bedtime. For cholesterol. metoprolol succinate ER (TOPROL XL) 100 mg Take 1 tablet by mouth once daily. lisinopril (ZESTRIL, PRINIVIL) 20 mg tablet Take 1 tablet by mouth once daily. EPINEPHrine (EPIPEN) 0.3 mg/0.3 mL auto-injector Inject 0.3 mL intramuscularly as needed. ketoconazole (NIZORAL) 2 % cream Apply to affected area once daily. flash glucose scanning reader ([employer] MedicalSTYLE JENNIFER 14 DAY READER) UAD. Dx: uncontrolled type 2 diabetes. No insulin. naproxen (NAPROSYN) 500 mg tablet Take 1 tablet by mouth twice daily as needed (for pain/inflammation). Take with food. loratadine (CLARITIN) 10 mg tablet Take 10 mg by mouth once daily. divalproex DR (DEPAKOTE) 500 mg EC tablet Take 3 tablets by mouth once daily. busPIRone (BUSPAR) 5 mg tablet Take 5 mg by mouth twice daily as needed. Lancets lancets Test blood sugar(s) 2-3 times daily. Dx: Type 2 DM - Uncontrolled E11.65 Insulin: No (Patient not taking: Reported on 06/22/2021 ) blood sugar diagnostic (BLOOD GLUCOSE TEST) test strip Test blood sugar(s) 2-3 times daily. Dx: Type 2 DM - Uncontrolled E11.65 Insulin: No (Patient not taking: Reported on 06/22/2021 ) ProAir RespiClick 90 mcg/actuation breath activated (albuterol sulfate) Inhale 2 Puffs as instructed every 6 hours as needed. albuterol (PROVENTIL) 2.5 mg /3 mL (0.083 %) nebulizer solution Use 3 mL via nebulizer every 6 hours as needed for Wheezing/Shortness of Breath. Use over 5-15minutes. Zerwe-8-GVV-EPA-Fish Oil (FISH OIL) 1,000 mg (120 mg-180 mg) cap Take 2 capsules by mouth once daily. risperiDONE (RISPERDAL) 2 mg tablet Take 2 mg by mouth once daily. LACTOBACILLUS RHAMNOSUS GG (CULTURELLE ORAL) Take 1 capsule by mouth once daily. multivitamin tablet Take 1 tablet by mouth once daily. No current facility-administered medications on file prior to visit. Social History Social History Tobacco Use Smoking status: Former Packs/day: 2.00 Years: 12.00 Additional pack years: 0.00 Total pack years: 24.00 Types: Cigarettes Quit date: 09/15/2008 Years since quittin.7 Smokeless tobacco: Never Tobacco comments: Quit 2008 Substance Use Topics Alcohol use: No Alcohol/week: 0.0 standard drinks of alcohol Comment: states that he used to drink a lot Drug use: No Review of Symptoms REVIEW OF SYSTEMS GENERAL: No significant weight loss (not eating as much and has lost some weight) , malaise or fevers HEENT: Negative for frequent or significant headaches, No changes in hearing or vision, no nose bleeds or other nasal problems (recently getting over URI and symptoms resolving of nasal congestion and ear pressure with decreased hearing) NECK: Negative for lumps, goiter, pain and significant neck swelling RESPIRATORY: Negative for cough, hemoptysis, wheezing, COPD, dyspnea or shortness of breath CARDIOVASCULAR: Negative for chest pain, leg swelling, hypertension, CHF or palpitations GI: No nausea, vomiting, or diarrhea, No heartburn or reflux symptoms when he is on the Pepcid, and no blood : No history of dysuria, frequency or blood MUSCULOSKELETAL: occasional aches and pains. SKIN: Negative for lesions, rash, and itching PSYCH: seeing Psych HEMATOLOGY/LYMPHOLOGY: Negative for prolonged bleeding, bruising easily or swollen nodes ENDOCRINE: Negative for cold or heat intolerance, see HPI NEURO: No history of headaches, syncope, paralysis, seizures. Some increased tremors with the increase in the risperidone. The neuropathy in his feet is not well controlled. EXAM: BP 130/94 (BP Site: Left Arm, BP Position: Sitting, BP Cuff Size: Large Adult) Pulse 82 Resp 16 Ht 188 cm (6' 2 ) Wt 98 kg (216 lb) BMI 27.73 kg/m Last 5 Encounter Wt Readings: Date: Wt: 06/11/2023 98 kg (216 lb) 08/14/2022 100.7 kg (222 lb) 07/06/2022 101.6 kg (224 lb) 01/25/2022 99.3 kg (219 lb) 12/11/2021 102.7 kg (226 lb 8 oz) General Appearance: Well appearing, alert, in no acute distress, well-hydrated, well nourished. and Overweight. Skin: Skin color, texture, turgor normal, no suspicious rashes or lesions. Head: Normocephalic, no masses, lesions, tenderness or abnormalities. Eyes: Anicteric sclera. Pupils are equally round and reactive to light. Extraocular movements are intact. . Ears: External ears normal, canals blocked with wax. Nose/Sinuses: Nares normal, septum midline, mucosa normal, no drainage or sinus tenderness. Oropharynx: Lips, mucosa, and tongue normal, teeth and gums normal, oropharynx normal. Neck: Supple, no adenopathy; thyroid symmetric, normal size, no bruits. Lungs: Lungs clear to auscultation. No wheezing, rhonchi, rales.. Heart: RRR without murmur, gallop, or rubs. No ectopy. Abdomen: Normal abdominal exam, Abdomen soft, non-tender. Bowel sounds normal. No masses, organomegaly. Extremities: No deformities, edema, skin discoloration, clubbing or cyanosis. Good capillary refill. . Musculoskeletal: Muscular strength intact, No joint swelling, deformity, or tenderness. Peripheral Pulses: Normal. Neurologic: Gait normal. Reflexes normal and symmetric. Sensation to light touch and crainal nerves 2-12 intact.. Genitalia: Normal, Penis normal. No urethral discharge. Scrotum normal to palpation. No hernia.. Diabetic Foot Exam: Feet: Shoes and socks removed, normal distal pulses, non-sensitive to microfilament in a few spots on the plantar surface and diminished in others, vibratory exam within normal limits, and calluses noted bilaterally Skin: warm, dry, and normal hair growth Vascular Pulses: Normal SEMMES-ANITA MONOFILAMENT TESTING Left Foot Right Foot Dorsal Surface diminished Dorsal Surface diminished Plantar Surface Diminished in some and absent in others. Plantar Surface Diminished in some and absent in others. Health Maintenance List Hepatitis B Vaccine(1 of 3 - 3-dose series) Never done Dilated Retinal Exam Never done Colorectal Cancer Screening Never done Pneumococcal Vaccine(2 - PPSV23 or PCV20) due on 02/25/2021 Covid-19 Vaccine(4 - Pfizer series) due on 08/17/2021 Urine Albumin:Creatinine Ratio due on 11/23/2022 Diabetic Foot Exam due on 01/25/2023 Influenza Vaccine(1) due on 05/17/2023 LDL Cholesterol due on 07/06/2023 Annual PCP Team Chronic Disease Visit due on 08/14/2023 BP Controlled (<130/80) due on 08/14/2023 HbA1C due on 10/26/2023 DTaP,Tdap,Td Vaccine(2 - Td or Tdap) due on 03/22/2024 Hepatitis C Screening Completed HIV Screening Discontinued Data reviewed Component Latest Ref Rng & Units 07/06/2022 04/25/2023 Protein, Total 6.3 - 8.0 g/dL 7.0 7.6 Albumin 3.9 - 4.9 g/dL 4.6 4.9 Calcium 8.5 - 10.2 mg/dL 9.6 10.0 Bilirubin, Total 0.2 - 1.3 mg/dL 0.3 0.4 Alkaline Phosphatase 38 - 113 U/L 75 72 AST 14 - 40 U/L 42 (H) 29 ALT 10 - 54 U/L 49 41 Glucose 74 - 99 mg/dL 152 (H) 158 (H) BUN 9 - 24 mg/dL 9 7 (L) Creatinine 0.73 - 1.22 mg/dL 0.84 0.80 Sodium 136 - 144 mmol/L 131 (L) 128 (L) Potassium 3.7 - 5.1 mmol/L 4.5 4.6 Chloride 97 - 105 mmol/L 93 (L) 89 (L) CO2 22 - 30 mmol/L 23 24 Anion Gap 9 - 18 mmol/L 15 15 eGFR >=60 mL/min/1.73m 109 110 WBC 3.70 - 11.00 k/uL 5.90 RBC 4.20 - 6.00 m/uL 4.57 Hemoglobin 13.0 - 17.0 g/dL 15.2 Hematocrit 39.0 - 51.0 % 43.5 MCV 80.0 - 100.0 fL 95.2 MCH 26.0 - 34.0 pg 33.3 MCHC 30.5 - 36.0 g/dL 34.9 RDW-CV 11.5 - 15.0 % 11.9 Platelet Count 150 - 400 k/uL 191 MPV 9.0 - 12.7 fL 11.8 Absolute nRBC <0.01 k/uL <0.01 Total Cholesterol, Nonfasting <200 mg/dL 97 Triglycerides, Nonfasting <150 mg/dL 319 (H) HDL Cholesterol, Nonfasting >39 mg/dL 24 (L) LDL Cholesterol, Nonfasting <100 mg/dL 9 Non HDL Cholesterol, Nonfasting <130 mg/dL 73 VLDL Cholesterol, Nonfasting <30 mg/dL 64 (H) Total Chol/HDL Ratio, Nonfasting <5.10 mg/dL 4.04 LDL/HDL Ratio, Nonfasting <2.54 mg/dL 0.38 Hemoglobin A1C 4.3 - 5.6 % 6.3 (H) 6.5 (H) Estimated Average Glucose mg/dL 134 140 TSH 0.270 - 4.200 mIU/L 2.060 A/P ASSESSMENT/PLAN: 1. Well adult exam - ICD9: V70.0, ICD10: Z00.00 (primary diagnosis) - Counseled on healthy diet and regular exercise - Follow up for annual exam in one year - encouraged getting the flu and covid vaccine updates in the next few weeks. 2. Type 2 diabetes mellitus with diabetic polyneuropathy, without long-term current use of insulin (HCC) - ICD9: 250.60, 357.2, ICD10: E11.42 - Controlled, with some morning lows. - Continue current medications, but change the metformin to two in AM and only one in the PM - Blood glucose monitoring on a twice daily schedule - Counseled on healthy diet and regular exercise Check - ALBUMIN/CREAT RATIO RND UR - LIPID PANEL, NONFASTING - URINALYSIS, WITH MICROSCOPIC - METFORMIN 500 MG TABLET 3. Essential hypertension - ICD9: 401.9, ICD10: I10 - Uncontrolled, but off the lisinopril - Continue current medications and restart the lisinopril - Recommend home blood pressure monitoring, to bring results to next visit - Encouraged sodium restriction, DASH or Mediterranean diet - Recommend regular aerobic exercise - METOPROLOL SUCCINATE ER 100 MG TABLET,EXTENDED RELEASE 24 HR Check - LIPID PANEL, NONFASTING 4. Mixed hyperlipidemia - ICD9: 272.2, ICD10: E78.2 - await lab - Continue current medications - Counseled on healthy diet and regular exercise - LIPID PANEL, NONFASTING 5. Gastroesophageal reflux disease without esophagitis - ICD9: 530.81, ICD10: K21.9 - Continue treatment with Pepcid 20 mg BID 6. Depression, unspecified depression type - ICD9: 311, ICD10: F32.A - CONSULT TO PRIMARY [facility]ARE BE[facility]AL [facility] ADULT 7. Bipolar depression (HCC) - ICD9: 296.50, ICD10: F31.9 - CONSULT TO [facility]ULT 8. Tremor - ICD9: 781.0, ICD10: R25.1 - CONSULT TO [facility] ADULT 9. Hyponatremia - ICD9: 276.1, ICD10: E87.1 - suspect this is SIADH from the Risperdal 10. Moderate obstructive sleep apnea - ICD9: 327.23, ICD10: G47.33 - patient could not tolerate CPAP 11. Seasonal allergic rhinitis, unspecified trigger - ICD9: 477.9, ICD10: J30.2 - used to see ENT. Has not seen in several years. 12. Multiple thyroid nodules - ICD9: 241.1, ICD10: E04.2 Check - US THYROID/PARATHYROID 13. Need for vaccination - ICD9: V05.9, ICD10: Z23 - HEP A-HEP B VACCINE ([place]): #1 of 3 14. History of bee sting allergy - ICD9: V15.06, ICD10: Z91.030 - EPINEPHRINE 0.3 MG/0.3 ML INJECTION, AUTO-INJECTOR Requested Prescriptions Signed Prescriptions Disp Refills atorvastatin (LIPITOR) 10 mg tablet 30 tablet 5 Sig: Take 1 tablet by mouth daily at bedtime. For cholesterol. metoprolol succinate ER (TOPROL XL) 100 mg 30 tablet 5 Sig: Take 1 tablet by mouth once daily. lisinopril (ZESTRIL) 20 mg tablet 30 tablet 5 Sig: Take 1 tablet by mouth once daily. EPINEPHrine (EPIPEN) 0.3 mg/0.3 mL auto-injector 1 Each 2 Sig: Inject 0.3 mL intramuscularly as needed. divalproex DR (DEPAKOTE) 500 mg EC tablet Sig: Take 3 tablets by mouth once daily. Dr. Green metFORMIN (GLUCOPHAGE) 500 mg tablet 270 tablet 1 Sig: Take two in the AM and one in the PM. gabapentin (NEURONTIN) 300 mg capsule 180 capsule 1 Sig: Take 1 capsule by mouth twice daily for 180 days. F/u in 4 weeks HTN check Needs [place] in 2 months and 6 months for Hep A and Hep B boosters. F/u 6 months routine check A1c, BMP and Lipid prior Juli Shaikh MD documented in this encounter [facility] 06-10-2023 Miscellaneous Notes Pt scheduled tomorrow with provider for medication check/refills. Pt told he needs to keep his 12/11/22 appointment for his physical. Left detailed message for pt regarding need for appt prior to refills. Pt to return call to office for appt. Colten Novak LPN Patient cancelled his appts on 05/03/2023, 03/22/2023, 12/06/22 and 11/02/22 and is not rescheduled till 12/11/2022. Last seen for chronic health issues 07/06/2022. Patient needs seen in the office before we give any more med refills. Patient has been identified by name and date of : Yes, Provider Dr Shaikh Date 06/07/23 Time 1223. Pharmacy phones for refill(s): Requested Prescriptions Pending Prescriptions Disp Refills metoprolol succinate ER (TOPROL XL) 100 mg 30 tablet 5 Sig: Take 1 tablet by mouth once daily. lisinopril (ZESTRIL) 20 mg tablet 30 tablet 5 Sig: Take 1 tablet by mouth once daily. Date of last office visit in primary care: 08/14/22 Future visit: 12/12/23 Last 2 Encounter Wt Readings: Date: Wt: 08/14/2022 100.7 kg (222 lb) 07/06/2022 101.6 kg (224 lb) Previous labs/tests for medication: Blood Pressure: BUN (mg/dL) Date Value 04/25/2023 7 06/22/2021 14 Sodium (mmol/L) Date Value 04/25/2023 128 06/22/2021 131 Last 1 Encounter BP Readings: Date: BP: 08/14/2022 120/76 Please advise. Thank you. Regina Ramirez, RN documented in this encounter [facility] 06-03-2023 Miscellaneous Notes Patient has been identified by name and date of : Yes Patient phones for refill(s): Requested Prescriptions Pending Prescriptions Disp Refills gabapentin (NEURONTIN) 300 mg capsule 30 capsule 2 Sig: Take 1 capsule by mouth daily at bedtime for 90 days. Refused Prescriptions Disp Refills atorvastatin (LIPITOR) 10 mg tablet 30 tablet 5 Sig: Take 1 tablet by mouth daily at bedtime. For cholesterol. Date of last office visit in primary care: [facility] 08/14/22 NOV 11/14/23 Last 2 Encounter Wt Readings: Date: Wt: 08/14/2022 100.7 kg (222 lb) 07/06/2022 101.6 kg (224 lb) Please advise. Thank you. SILKE Cedeno documented in this encounter [facility] 06-03-2023 Miscellaneous Notes Patient has been identified by name and date of : Yes Patient phones for refill(s): Requested Prescriptions Pending Prescriptions Disp Refills famotidine (PEPCID) 20 mg tablet 180 tablet 1 Sig: Take 1 tablet by mouth twice daily as needed. colestipol (COLESTID) 1 gram tablet 120 tablet 5 Sig: Take 2 tablets by mouth twice daily. Date of last office visit in primary care: [facility] 08/14/22 NOV 11/14/23 Last 2 Encounter Wt Readings: Date: Wt: 08/14/2022 100.7 kg (222 lb) 07/06/2022 101.6 kg (224 lb) Please advise. Thank you. SILKE Cedeno documented in this encounter [facility] 05-10-2023 Miscellaneous Notes Notified via [employer] Nissa Yoder Ma Left a message for pt to call the office and ask to speak to a nurse. Isis Cordova LPN Left vm for pt to contact office. Hollie Currie LPN Let patient know refill request denied. Has not been seen for his chronic health issues since 07/06/2022 and has cancelled 4 appointments since then. Patient has been identified by name and date of : Yes Requested Prescriptions Pending Prescriptions Disp Refills colestipol (COLESTID) 1 gram tablet 120 tablet 5 Sig: Take 2 tablets by mouth twice daily. RX INSTRUCTIONS: Patient aware RX will be sent to pharmacy. No need to notify patient. Nupur Edmondson MA [facility] 06/2022 Nov 10/2023 Last refill; 10/2022 Patient has been identified by name and date of : Yes Last office visit in this department: 08/14/2022 RX INSTRUCTIONS: Pharmacy initiated this request. No need to notify patient. Patient phones requesting refills as follows: Requested Prescriptions Pending Prescriptions Disp Refills colestipol (COLESTID) 1 gram tablet 120 tablet 5 Sig: Take 2 tablets by mouth twice daily. Please review and advise. Kimberlyn Collado documented in this encounter [facility] 02-13-2023 Miscellaneous Notes Being addressed in another TE. Hollie Currie LPN documented in this encounter [facility] 02-13-2023 Miscellaneous Notes Last refill Metformin 08/13/22 Qty: 120 with 5 refills [facility] Pt is requesting [facility] 08/14/22 NOV 05/03/23 Hollie Currie LPN documented in this encounter [facility] 01-21-2023 Miscellaneous Notes Patient has been identified by name and date of : Yes Requested Prescriptions Pending Prescriptions Disp Refills fluticasone (FLONASE) 50 mcg/actuation nasal spray 1 Each 3 Sig: Use 2 Sprays in each nostril once daily. Rinse mouth after use. RX INSTRUCTIONS: Patient aware RX will be sent to pharmacy. No need to notify patient. Patient last office visit: 08/14/22 Patient next office visit: 03/22/23 Kylee Castellanos MA documented in this encounter [facility] 01-12-2023 Miscellaneous Notes The following approved medication requests have been transmitted electronically. Requested Prescriptions Signed Prescriptions Disp Refills gabapentin (NEURONTIN) 300 mg capsule 30 capsule 2 Sig: Take 1 capsule by mouth daily at bedtime for 90 days. Authorizing Provider: JULI SHAIKH MD Patient has been identified by name and date of : Yes Requested Prescriptions Pending Prescriptions Disp Refills gabapentin (NEURONTIN) 300 mg capsule 30 capsule 2 Sig: Take 1 capsule by mouth daily at bedtime for 90 days. RX INSTRUCTIONS: Patient aware RX will be sent to pharmacy. No need to notify patient. Nupur Edmondson MA [facility]: 06/2022 Nov: 03/2023 Last refill; 09/2022 documented in this encounter [facility] 11-06-2022 Miscellaneous Notes The following approved medication requests have been transmitted electronically. Requested Prescriptions Signed Prescriptions Disp Refills colestipol (COLESTID) 1 gram tablet 120 tablet 5 Sig: Take 2 tablets by mouth twice daily. Authorizing Provider: JULI SHAIKH MD Last Office Visit: 08/14/2022 Future Office Visit: 03/22/2023 Requested Prescriptions Pending Prescriptions Disp Refills colestipol (COLESTID) 1 gram tablet 120 tablet 5 Sig: Take 2 tablets by mouth twice daily. Date of Last Labs 11/13/2022 documented in this encounter [facility] 10-15-2022 Miscellaneous Notes Patient has been identified by name and date of : Yes Requested Prescriptions Pending Prescriptions Disp Refills fluticasone (FLONASE) 50 mcg/actuation nasal spray 1 Each 3 Sig: Use 2 Sprays in each nostril once daily. Rinse mouth after use. RX INSTRUCTIONS: Patient aware RX will be sent to pharmacy. No need to notify patient. Nupur Edmondson MA Roula: 06/2022 Nov: 10/2022 Last refill: 08/2022 documented in this encounter [facility] 10-15-2022 Miscellaneous Notes Patient requests via MyChart refills as follows: Requested Prescriptions Pending Prescriptions Disp Refills gabapentin (NEURONTIN) 300 mg capsule 30 capsule 2 Sig: Take 1 capsule by mouth daily at bedtime for 90 days. ROULA: 08/14/22 NOV: 11/12/22 Last Refill: 07/16/22 #30 2 refills Nely Bragg LPN documented in this encounter [facility] 10-10-2022 Miscellaneous Notes Patient has been identified by name and date of : Yes, Caitie Daigle RN Date 10/10/2022 Time 4:48 pm Pharmacy phones for refill(s): Requested Prescriptions Pending Prescriptions Disp Refills metoprolol succinate ER (TOPROL XL) 100 mg 30 tablet 5 Sig: Take 1 tablet by mouth once daily. lisinopril (ZESTRIL, PRINIVIL) 20 mg tablet 30 tablet 5 Sig: Take 1 tablet by mouth once daily. Date of last office visit with pcp: 08/14/2022 Future appt: 11/02/2022 Last 2 Encounter Wt Readings: Date: Wt: 08/14/2022 100.7 kg (222 lb) 07/06/2022 101.6 kg (224 lb) Previous labs/tests for medication: Blood Pressure: BUN (mg/dL) Date Value 07/06/2022 9 06/22/2021 14 Sodium (mmol/L) Date Value 07/06/2022 131 06/22/2021 131 Last 1 Encounter BP Readings: Date: BP: 08/14/2022 120/76 Liver Function: ALT (U/L) Date Value 07/06/2022 49 06/22/2021 60 06/22/2021 65 AST (U/L) Date Value 07/06/2022 42 06/22/2021 36 06/22/2021 40 Please advise. Thank you. Caitie Daigle RN documented in this encounter [facility] 10-03-2022 Miscellaneous Notes The following approved medication requests have been transmitted electronically. Requested Prescriptions Signed Prescriptions Disp Refills famotidine (PEPCID) 20 mg tablet 180 tablet 1 Sig: Take 1 tablet by mouth twice daily as needed. Authorizing Provider: JULI SHAIKH MD Patient has been identified by name and date of : Yes Requested Prescriptions Pending Prescriptions Disp Refills famotidine (PEPCID) 20 mg tablet 180 tablet 0 Sig: Take 1 tablet by mouth twice daily as needed. RX INSTRUCTIONS: Patient aware RX will be sent to pharmacy. No need to notify patient. Nupur Edmondson MA Roula: 06/2022 Nov: 10/2022 Last refill: 06/2022 documented in this encounter [facility] 09-05-2022 Miscellaneous Notes The following approved medication requests have been transmitted electronically. Requested Prescriptions Signed Prescriptions Disp Refills fluticasone (FLONASE) 50 mcg/actuation nasal spray 1 Each 3 Sig: Use 2 Sprays in each nostril once daily. Rinse mouth after use. Authorizing Provider: JULI SHAIKH MD RX INSTRUCTIONS: Patient aware RX will be sent to pharmacy. No need to notify patient. Last OV: 08/14/22 with RR Last refill: 04/25/22 With 1 and 3 refills Follow up: 11/02/22-4 month F/U with PCP Shelby Bermudez MA documented in this encounter [facility] 08-15-2022 Miscellaneous Notes Patient has been identified by name and date of : Yes Pharmacy phones for refill(s): Requested Prescriptions Pending Prescriptions Disp Refills atorvastatin (LIPITOR) 10 mg tablet 30 tablet 5 Sig: Take 1 tablet by mouth daily at bedtime. For cholesterol. Date of last office visit with pcp: Date of last office visit in primary care: 08/14/22 Last 2 Encounter Wt Readings: Date: Wt: 08/14/2022 100.7 kg (222 lb) 07/06/2022 101.6 kg (224 lb) Previous labs/tests for medication: Cholesterol: HDL Cholesterol (mg/dL) Date Value 10/16/2019 33 HDL Cholesterol, Nonfasting (mg/dL) Date Value 07/06/2022 24 06/22/2021 21 LDL Cholesterol (mg/dL) Date Value 10/16/2019 43 LDL Cholesterol, Nonfasting (mg/dL) Date Value 07/06/2022 9 06/22/2021 Unable to calculate due to increased Triglycerides. A Direct LDL Cholesterol measurement will not be performed. If clinically indicated, a fasting Basic Lipid Panel (LIPB) may be ordered. ALT (U/L) Date Value 07/06/2022 49 06/22/2021 60 06/22/2021 65 Non HDL Cholesterol, Nonfasting (mg/dL) Date Value 07/06/2022 73 06/22/2021 155 Please advise. Thank you. Vivien Quarles, RN documented in this encounter [facility] 08-14-2022 History of Presen t illness Narrative Ambulatory Ear Lavage Pre-treatment: Ear Canal/Tympanic membrane assessed by SHAHANA Hooper PA-C Warm water Treatment: Both ears Equipment and Irrigation solution and Volume used: Single use syringe with single use irrigation tip Water Total Irrigation Volume: 500mL Return flow appearance: Brown Yellow Patient tolerated procedure: yes Post-treatment: Post Irrigation Post-treatment: Ear Canal/Tympanic membrane assessed by SHAHANA Hooper PA-C Chief Complaint Patient presents with: Ear Problem HPI Alex Burks is a 47 year old male who presents here today for above concerns. Patient states he has been having muffled hearing and some ear pressure mostly with swallowing. No significant pain. Past medical history, appointments, medications, allergies reviewed. Previous Medical History PAST MEDICAL HISTORY Diagnosis Date Bipolar depression (HCC) 04/15/2017 Depression 03/26/2011 Elevated LFTs 02/13/2019 Erectile dysfunction 06/06/2018 Essential hypertension 01/30/2012 Ex-smoker 06/06/2018 Started at age 13 up to 2 PPD and quit 2011 (48 pack year Hx) Family history of NH (myocardial infarction) 06/06/2018 Fatty liver 02/20/2019 GERD (gastroesophageal reflux disease) 03/26/2011 History of bee sting allergy 03/26/2011 Hypercalcemia 02/26/2020 Re-checked 02/2020 Mixed hyperlipidemia 06/06/2018 Moderate obstructive sleep apnea 12/31/2020 Tremor 02/26/2019 Since starting psych medication Type 2 diabetes mellitus without complication, without long-term current use of insulin (HCC) 02/29/2020 Uncontrolled type 2 diabetes mellitus with hyperglycemia (HCC) 10/27/2021 Previous Surgical History PAST SURGICAL HISTORY Procedure Laterality Date APPENDECTOMY 2001? Family History FAMILY HISTORY Problem Relation Age of Onset Hypertension Mother Heart Father in his 50's Colon Cancer Paternal Grandmother 70 Diabetes Paternal Uncle Coronary Artery Disease Paternal Uncle Stroke Paternal Uncle Stroke Paternal Uncle Coronary Artery Disease Paternal Grandfather 50-55 Alzheimer's Disease No Family History Breast Cancer No Family History Ovarian cancer No Family History Prostate Cancer No Family History Seizures No Family History Thyroid No Family History Kidney Disease No Family History Patient Allergies ALLERGIES Allergen Reactions Bees Swelling Current Medications Current Outpatient Medications on File Prior to Visit Medication Sig metFORMIN (GLUCOPHAGE) 500 mg tablet Take 2 tablets by mouth twice daily with meals. . gabapentin (NEURONTIN) 300 mg capsule Take 1 capsule by mouth daily at bedtime for 90 days. famotidine (PEPCID) 20 mg tablet Take 1 tablet by mouth twice daily as needed. colestipol (COLESTID) 1 gram tablet Take 2 tablets by mouth twice daily. EPINEPHrine (EPIPEN) 0.3 mg/0.3 mL auto-injector Inject 0.3 mL intramuscularly as needed. fluticasone (FLONASE) 50 mcg/actuation nasal spray Use 2 Sprays in each nostril once daily. Rinse mouth after use. flash glucose sensor (ROX MedicalSTYLE JENNIFER 2 SENSOR) kit 1 Each every 2 weeks. metoprolol succinate ER (TOPROL XL) 100 mg Take 1 tablet by mouth once daily. lisinopril (ZESTRIL, PRINIVIL) 20 mg tablet Take 1 tablet by mouth once daily. atorvastatin (LIPITOR) 10 mg tablet Take 1 tablet by mouth daily at bedtime. For cholesterol. ketoconazole (NIZORAL) 2 % cream Apply to affected area once daily. flash glucose scanning reader (FREESTYLE JENNIFER 14 DAY READER) UAD. Dx: uncontrolled type 2 diabetes. No insulin. naproxen (NAPROSYN) 500 mg tablet Take 1 tablet by mouth twice daily as needed (for pain/inflammation). Take with food. loratadine (CLARITIN) 10 mg tablet Take 10 mg by mouth once daily. divalproex DR (DEPAKOTE) 500 mg EC tablet Take 3 tablets by mouth once daily. busPIRone (BUSPAR) 5 mg tablet Take 5 mg by mouth twice daily as needed. ProAir RespiClick 90 mcg/actuation breath activated (albuterol sulfate) Inhale 2 Puffs as instructed every 6 hours as needed. albuterol (PROVENTIL) 2.5 mg /3 mL (0.083 %) nebulizer solution Use 3 mL via nebulizer every 6 hours as needed for Wheezing/Shortness of Breath. Use over 5-15minutes. Durju-2-WCZ-EPA-Fish Oil (FISH OIL) 1,000 mg (120 mg-180 mg) cap Take 2 capsules by mouth once daily. risperiDONE (RISPERDAL) 2 mg tablet Take 2 mg by mouth once daily. LACTOBACILLUS RHAMNOSUS GG (CULTURELLE ORAL) Take 1 capsule by mouth once daily. multivitamin tablet Take 1 tablet by mouth once daily. Lancets lancets Test blood sugar(s) 2-3 times daily. Dx: Type 2 DM - Uncontrolled E11.65 Insulin: No (Patient not taking: Reported on 06/22/2021 ) blood sugar diagnostic (BLOOD GLUCOSE TEST) test strip Test blood sugar(s) 2-3 times daily. Dx: Type 2 DM - Uncontrolled E11.65 Insulin: No (Patient not taking: Reported on 06/22/2021 ) No current facility-administered medications on file prior to visit. Social History Social History Tobacco Use Smoking status: Former Packs/day: 2.00 Years: 12.00 Pack years: 24.00 Types: Cigarettes Quit date: 09/15/2008 Years since quittin.9 Smokeless tobacco: Never Tobacco comments: Quit 2007 Substance Use Topics Alcohol use: No Alcohol/week: 0.0 standard drinks Comment: states that he used to drink a lot Drug use: No Review of Symptoms REVIEW OF SYSTEMS See hpi EXAM: BP 120/76 (BP Site: Right Arm, BP Position: Sitting, BP Cuff Size: Large Adult) Pulse 76 Temp 36.3 C (97.3 F) Resp 18 Wt 100.7 kg (222 lb) BMI 28.89 kg/m General Appearance: Well appearing, alert, in no acute distress, well-hydrated, well nourished.. Ears: cerumen impaction bilaterally. . Health Maintenance List HEPATITIS B(1 of 3 - 3-dose series) Never done DILATED RETINAL EXAM Never done COLORECTAL CANCER SCREENING Never done COVID-19 VACCINE(4 - Booster for Pfizer series) due on 08/17/2021 PNEUMOCOCCAL(2 - PPSV23 if available, else PCV20) due on 12/31/2021 INFLUENZA(1) due on 05/17/2022 URINE ALBUMIN:CREATININE RATIO due on 11/23/2022 HBA1C due on 01/04/2023 DIABETIC FOOT EXAM due on 01/25/2023 LDL CHOLESTEROL due on 07/06/2023 ANNUAL PCP TEAM CHRONIC DISEASE VISIT due on 07/06/2023 BP CONTROLLED (<130/80) due on 07/06/2023 DTAP,TDAP,TD(2 - Td or Tdap) due on 03/22/2024 HEPATITIS C SCREENING Completed HIV SCREENING Discontinued Data reviewed ASSESSMENT/PLAN: 1. Bilateral impacted cerumen - ICD9: 380.4, ICD10: H61.23 - Discussed ear irrigation with warm water and verbal consent given. b/l Ear irrigated with warm water per nursing for removal of wax. Patient tolerated well. On recheck, some improved noted but still unable to visualize TM. Patient did not tolerate currette attempt I was unable to remove any more.. - patient can continue debrox at home and follow up if not improving. - we also discussed setting up with ENT if he would prefer. - AMBULATORY EAR LAVAGE/IRRIGATION Viv Hooper PA-C documented in this encounter [facility] 08-14-2022 Instructions Viv Hooper PA-C - 08/14/2022 10:29 AM EST Can try the debrox and then if not improving, we can try to do another ear irrigation. Other option is to set up with ENT specialist. Otherwise follow up as scheduled. documented in this encounter [facility] 08-13-2022 Miscellaneous Notes Patient has been identified by name and date of : Yes Requested Prescriptions Pending Prescriptions Disp Refills metFORMIN (GLUCOPHAGE) 500 mg tablet 120 tablet 5 Sig: Take 2 tablets by mouth twice daily with meals. . RX INSTRUCTIONS: Patient aware RX will be sent to pharmacy. No need to notify patient. Nupur Edmondson MA Roula: 06/2022 Nov: 10/2022 Last refill: 07/2022 documented in this encounter [facility] 07-16-2022 Miscellaneous Notes Patient has been identified by name and date of : Yes Requested Prescriptions Pending Prescriptions Disp Refills gabapentin (NEURONTIN) 300 mg capsule 30 capsule 2 Sig: Take 1 capsule by mouth daily at bedtime for 90 days. RX INSTRUCTIONS: Patient aware RX will be sent to pharmacy. No need to notify patient. Nupur Edmondson MA Roula: 06/2022 Nov: 10/2022 Last refill; 04/2022 documented in this encounter [facility] 07-12-2022 Miscellaneous Notes Patient scheduled. Patient inquired about results. Another MA sent a letter. Gave results to the patient over the phone. Voiced understanding. Nupur Edmondson MA Patient needs to schedule his follow up appt for mid Oct 2022. The following approved medication requests have been transmitted electronically. Requested Prescriptions Signed Prescriptions Disp Refills famotidine (PEPCID) 20 mg tablet 180 tablet 0 Sig: Take 1 tablet by mouth twice daily as needed. Authorizing Provider: JULI SHAIKH MD Patient has been identified by name and date of : Yes Patient phones for refill(s): Requested Prescriptions Pending Prescriptions Disp Refills famotidine (PEPCID) 20 mg tablet 180 tablet 1 Sig: Take 1 tablet by mouth twice daily as needed. Date of last office visit with pcp: 07/06/2022 Future appt: none Last 2 Encounter Wt Readings: Date: Wt: 07/06/2022 101.6 kg (224 lb) 01/25/2022 99.3 kg (219 lb) Previous labs/tests for medication: Blood Pressure: BUN (mg/dL) Date Value 07/06/2022 9 06/22/2021 14 Sodium (mmol/L) Date Value 07/06/2022 131 06/22/2021 131 Last 1 Encounter BP Readings: Date: BP: 07/06/2022 120/78 Liver Function: ALT (U/L) Date Value 07/06/2022 49 06/22/2021 60 06/22/2021 65 AST (U/L) Date Value 07/06/2022 42 06/22/2021 36 06/22/2021 40 Please advise. Thank you. Caitie Daigle, RN documented in this encounter [facility] 07-10-2022 Miscellaneous Notes Letter mailed to pt home of results. Nissa Yoder MA Let patient know his a1c is 6.3% which is great. Cholesterol is stable. Sodium level is low again. But overall stable. Would want to recheck in 1 month. Hep B results shows NO immunity. If he would like vaccine, we can set those up. Thanks. Viv Hooper PA-C documented in this encounter [facility] 07-06-2022 Instructions Viv Hooper PA-C - 07/06/2022 7:24 AM EDT Please schedule your Diabetic Eye exam. documented in this encounter [facility] 07-06-2022 History of Presen t illness Narrative Chief Complaint Patient presents with: Recheck HPI Alex Burks is a 46 year old male who presents here today for Chronic Medical Conditions.. Patient with hx of DM2, GERD, hyperlipidemia, HTN, tremor, allergies, bipolar, and those as below. Patient states he has been getting some low readings on his freestyle jennifer. But the last time he had it showing low, he thinks it may just be a bad sensor because when he checked a fingerstick glucose, he was at 130s. He didn't continue the rybelsus because he didn't follow up with us after we tried to get in contact with him about the mg dosing. However he has been working on his diet and feels like his glucose readings have been much better (with the exception of the possible false low readings he's gotten in the past week). No other concerns today. Past medical history, appointments, medications, allergies reviewed. Previous Medical History PAST MEDICAL HISTORY Diagnosis Date Bipolar depression (HCC) 04/15/2017 Depression 03/26/2011 Elevated LFTs 02/13/2019 Erectile dysfunction 06/06/2018 Essential hypertension 01/30/2012 Ex-smoker 06/06/2018 Started at age 13 up to 2 PPD and quit 2011 (48 pack year Hx) Family history of NH (myocardial infarction) 06/06/2018 Fatty liver 02/20/2019 GERD (gastroesophageal reflux disease) 03/26/2011 History of bee sting allergy 03/26/2011 Hypercalcemia 02/26/2020 Re-checked 02/2020 Mixed hyperlipidemia 06/06/2018 Moderate obstructive sleep apnea 12/31/2020 Tremor 02/26/2019 Since starting psych medication Type 2 diabetes mellitus without complication, without long-term current use of insulin ([facility]) 02/29/2020 Uncontrolled type 2 diabetes mellitus with hyperglycemia ([facility]) 10/27/2021 Previous Surgical History PAST SURGICAL HISTORY Procedure Laterality Date APPENDECTOMY 2001? Family History FAMILY HISTORY Problem Relation Age of Onset Hypertension Mother Heart Father in his 50's Colon Cancer Paternal Grandmother 70 Diabetes Paternal Uncle Coronary Artery Disease Paternal Uncle Stroke Paternal Uncle Stroke Paternal Uncle Coronary Artery Disease Paternal Grandfather 50-55 Alzheimer's Disease No Family History Breast Cancer No Family History Ovarian cancer No Family History Prostate Cancer No Family History Seizures No Family History Thyroid No Family History Kidney Disease No Family History Patient Allergies ALLERGIES Allergen Reactions Bees Swelling Current Medications Current Outpatient Medications on File Prior to Visit Medication Sig colestipol (COLESTID) 1 gram tablet Take 2 tablets by mouth twice daily. EPINEPHrine (EPIPEN) 0.3 mg/0.3 mL auto-injector Inject 0.3 mL intramuscularly as needed. fluticasone (FLONASE) 50 mcg/actuation nasal spray Use 2 Sprays in each nostril once daily. Rinse mouth after use. flash glucose sensor (FREESTYLE JENNIFER 2 SENSOR) kit 1 Each every 2 weeks. metoprolol succinate ER (TOPROL XL) 100 mg Take 1 tablet by mouth once daily. lisinopril (ZESTRIL, PRINIVIL) 20 mg tablet Take 1 tablet by mouth once daily. gabapentin (NEURONTIN) 300 mg capsule Take 1 capsule by mouth daily at bedtime for 90 days. metFORMIN (GLUCOPHAGE) 500 mg tablet Take 2 tablets by mouth twice daily with meals. . atorvastatin (LIPITOR) 10 mg tablet Take 1 tablet by mouth daily at bedtime. For cholesterol. ketoconazole (NIZORAL) 2 % cream Apply to affected area once daily. famotidine (PEPCID) 20 mg tablet Take 1 tablet by mouth twice daily as needed. flash glucose scanning reader (FREESTYLE JENNIFER 14 DAY READER) UAD. Dx: uncontrolled type 2 diabetes. No insulin. naproxen (NAPROSYN) 500 mg tablet Take 1 tablet by mouth twice daily as needed (for pain/inflammation). Take with food. loratadine (CLARITIN) 10 mg tablet Take 10 mg by mouth once daily. divalproex DR (DEPAKOTE) 500 mg EC tablet Take 3 tablets by mouth once daily. busPIRone (BUSPAR) 5 mg tablet Take 5 mg by mouth twice daily as needed. Lancets lancets Test blood sugar(s) 2-3 times daily. Dx: Type 2 DM - Uncontrolled E11.65 Insulin: No (Patient not taking: Reported on 06/22/2021 ) blood sugar diagnostic (BLOOD GLUCOSE TEST) test strip Test blood sugar(s) 2-3 times daily. Dx: Type 2 DM - Uncontrolled E11.65 Insulin: No (Patient not taking: Reported on 06/22/2021 ) ProAir RespiClick 90 mcg/actuation breath activated (albuterol sulfate) Inhale 2 Puffs as instructed every 6 hours as needed. albuterol (PROVENTIL) 2.5 mg /3 mL (0.083 %) nebulizer solution Use 3 mL via nebulizer every 6 hours as needed for Wheezing/Shortness of Breath. Use over 5-15minutes. Lqfyw-6-MQE-EPA-Fish Oil (FISH OIL) 1,000 mg (120 mg-180 mg) cap Take 2 capsules by mouth once daily. risperiDONE (RISPERDAL) 2 mg tablet Take 2 mg by mouth once daily. LACTOBACILLUS RHAMNOSUS GG (CULTURELLE ORAL) Take 1 capsule by mouth once daily. multivitamin tablet Take 1 tablet by mouth once daily. No current facility-administered medications on file prior to visit. Social History Social History Tobacco Use Smoking status: Former Packs/day: 2.00 Years: 12.00 Pack years: 24.00 Types: Cigarettes Quit date: 09/15/2008 Years since quittin.8 Smokeless tobacco: Never Tobacco comments: Quit 2007 Substance Use Topics Alcohol use: No Alcohol/week: 0.0 standard drinks Comment: states that he used to drink a lot Drug use: No Review of Symptoms REVIEW OF SYSTEMS GENERAL: No weight loss, malaise or fevers NECK: Negative for lumps, goiter, pain and significant neck swelling RESPIRATORY: Negative for cough, hemoptysis, wheezing, COPD, dyspnea or shortness of breath CARDIOVASCULAR: Negative for chest pain, leg swelling, CHF or palpitations NEURO: +tremors. No history of headaches, syncope, paralysis, seizures EXAM: BP 120/78 Pulse 84 Resp 16 Wt 101.6 kg (224 lb) BMI 29.15 kg/m General Appearance: Well appearing, alert, in no acute distress, well-hydrated, well nourished.. Neck: Supple, no adenopathy; thyroid symmetric, normal size, no bruits. Lungs: Lungs clear to auscultation. No wheezing, rhonchi, rales.. Heart: RRR without murmur, gallop, or rubs. No ectopy. Extremities: No deformities, edema, skin discoloration, clubbing or cyanosis. Good capillary refill. . Peripheral Pulses: Normal. Health Maintenance List HEPATITIS B(1 of 3 - 3-dose series) Never done DILATED RETINAL EXAM Never done BP CONTROLLED (<130/80) Never done COLORECTAL CANCER SCREENING Never done COVID-19 VACCINE(4 - Booster for Pfizer series) due on 08/17/2021 HBA1C due on 02/23/2022 INFLUENZA(1) due on 05/17/2022 PNEUMOCOCCAL(2 - PPSV23 if available, else PCV20) due on 07/17/2022 URINE ALBUMIN:CREATININE RATIO due on 11/23/2022 LDL CHOLESTEROL due on 11/23/2022 DIABETIC FOOT EXAM due on 01/25/2023 ANNUAL PCP TEAM CHRONIC DISEASE VISIT due on 01/25/2023 DTAP,TDAP,TD(2 - Td or Tdap) due on 03/22/2024 HEPATITIS C SCREENING Completed HIV SCREENING Discontinued Data reviewed ASSESSMENT/PLAN: 1. Uncontrolled type 2 diabetes mellitus with hyperglycemia (HCC) - ICD9: 250.02, ICD10: E11.65 (primary diagnosis) Await labs - Continue current medications - BP goal of <130/80 - LDL goal of <100 2. Type 2 diabetes mellitus with diabetic polyneuropathy, without long-term current use of insulin (HCC) - ICD9: 250.60, 357.2, ICD10: E11.42 As above 3. Essential hypertension - ICD9: 401.9, ICD10: I10 - good control - Continue current medication(s) - Recommended regular aerobic exercise. - Recommend home blood pressure monitoring, to bring results in on next visit - Goal of BP <130/80 4. Mixed hyperlipidemia - ICD9: 272.2, ICD10: E78.2 - to be determined upon return of lab results - Encouraged following a low carbohydrate, healthy oil intake diet. - Continue current therapy. 5. Tremor - ICD9: 781.0, ICD10: R25.1 stable 6. Moderate obstructive sleep apnea - ICD9: 327.23, ICD10: G47.33 Cont current management 7. Gastroesophageal reflux disease without esophagitis - ICD9: 530.81, ICD10: K21.9 stable 8. Bipolar depression (HCC) - ICD9: 296.50, ICD10: F31.9 Cont with psych 9. Screening for colon cancer - ICD9: V76.51, ICD10: Z12.11 - CONSULT TO GENERAL SURGERY 10. Immunity status testing - ICD9: V72.61, ICD10: Z01.84 - HEP B SURF AB QUAL Viv Hooper PA-C documented in this encounter [facility] 07-04-2022 Miscellaneous Notes TC to patient who verbalizes understanding and will have lab work completed before Saturday's appointment. RUFINO Cedeno Noted. I'm putting labs in for him to do as well, since he did not do the labs that were due in March. Viv Hooper PA-C Patient phone to report in the past week has been getting concerning low BS readings. Reports yesterday evening (5:30-6 pm) the alarm was going off on his Freestyle Jennifer II, with reading of 54. He felt lightheaded and cheeks felt really hot. Reports he drank some pop quick, and BS went back up to around 110. But the Jennifer went off 3 more times in the next 2 hours with low readings. Wonders if the sensor needs change (almost due). Scheduled 4 mth f/u with PA this Saturday. Upon review of medications- patient did report he is taking the metformin different than instructions- taking 2000 daily (instructions state 1000 mg twice/day). Reports he does that because it works better for him to take it once a day. Reports he is not having side effects- no diarrhea, no cramping. Reports the graph on the Jennifer was showing 80-150. Now it's showing way below, in the red. Reports he never took the Rybelsus, because it said on the Rx bottle to talk to doctor 1st. Doctor cancelled appt, so has not yet talked to doctor. Will discuss all of this with provider at appt. Patient will check Jennifer readings with glucometer readings and bring readings to next appt. documented in this encounter [facility] 06-14-2022 Miscellaneous Notes Flonase refilled 04/25/22 to [facility] with 3 refills. Pt notified via [employer] to check with pharmacy. Nissa Yoder Ma documented in this encounter [facility] 05-23-2022 Miscellaneous Notes Patient has been identified by name and date of : Yes Pharmacy phones for refill(s): Requested Prescriptions Pending Prescriptions Disp Refills colestipol (COLESTID) 1 gram tablet 120 tablet 5 Sig: Take 2 tablets by mouth twice daily. Date of last office visit with pcp: 01-25-22. Next appt: none Last 2 Encounter Wt Readings: Date: Wt: 01/25/2022 99.3 kg (219 lb) 12/11/2021 102.7 kg (226 lb 8 oz) Previous labs/tests for medication: Blood Pressure: BUN (mg/dL) Date Value 11/23/2021 14 06/22/2021 14 Sodium (mmol/L) Date Value 11/23/2021 129 06/22/2021 131 Last 1 Encounter BP Readings: Date: BP: 01/25/2022 112/86 Liver Function: ALT (U/L) Date Value 05/02/2022 55 06/22/2021 60 06/22/2021 65 AST (U/L) Date Value 05/02/2022 33 06/22/2021 36 06/22/2021 40 Please advise. Thank you. Elda Chu RN documented in this encounter [facility] 05-14-2022 Miscellaneous Notes Closing phone encounter see phone encounter dated 04-25-22 medication for Stanley was refilled for 7 mg tablets. Pt not responding to requests whether he would like to increase medication. Isis Cordova LPN [employer] message read on 04/25/22. Pt has not called back. Left a message today for Emily to have the pt call the office back and I left her a detailed message regarding the medication below. Isis Cordova LPN Spoke with Emily and she will have pt call the office. Isis Cordova LPN [employer] message sent to pt, asking them to call back for results. Nissa Yoder MA Attempted to reach pt by phone. Phone number will not go thru. Left amessage for Gilda to call the office with correct phone number for pt. Isis Cordova LPN Please ask patient how his blood sugars are and if he is ready to go up to the 14mg dose. Viv Hooper PA-C Patient phones requesting refills as follows: Pending Prescriptions Disp Refills RYBELSUS 7 MG TABLET 30 tablet 0 Sig: Take 1 tablet (7 mg) by mouth daily before breakfast. JUNE: No ROULA-01/25/22 Labs-11/23/21 NOV-none med filled 01/25/22 Please review and advise. Lenka Kan LPN documented in this encounter [facility] 05-14-2022 Miscellaneous Notes The following approved medication requests have been transmitted electronically. Requested Prescriptions Signed Prescriptions Disp Refills EPINEPHrine (EPIPEN) 0.3 mg/0.3 mL auto-injector 1 Each 2 Sig: Inject 0.3 mL intramuscularly as needed. Authorizing Provider: JULI SHAIKH MD Reached out to patient via [employer] that his appointment will need re-scheduled. Patient has been identified by name and date of : Yes Requested Prescriptions Pending Prescriptions Disp Refills EPINEPHrine (EPIPEN) 0.3 mg/0.3 mL auto-injector 1 Each 2 Sig: Inject 0.3 mL intramuscularly as needed. gabapentin (NEURONTIN) 300 mg capsule 30 capsule 2 Sig: Take 1 capsule by mouth daily at bedtime for 90 days. RX INSTRUCTIONS: Patient aware RX will be sent to pharmacy. No need to notify patient. Nupur Edmondson MA Roula: 01/2022 Last refill: 06/2021 Neurontin was refilled on 04/18/2022 documented in this encounter [facility] 05-04-2022 Miscellaneous Notes Noted. Records show message read on 04/25/22, no response back. Isis Cordova LPN Pt was sent a [employer] message this morning to contact office. Called pt's cell number and left a message after a very loud beep. Not sure if message was recorded or not. Letter sent to pt to contact office. Hollie Currie LPN Please see note from 04/18/22. I want to know how he is doing on meds and if he wants to go to higher dosing. Keep trying to contact him please and send a letter for him to contact us. In meantime I will send in 7mg dose so that he doesn't go without medication. Viv Hooper PA-C Last refill Rybelsus 01/25/22 Qty: 30 with 0 refills Last refill Flonase 02/20/21 Qty: 1 bottle with 3 refills ROULA 01/25/22 NOV cancelled by office No appt scheduled. Sent pt a message via My Chart to reschedule 4 month f/unit(s) appt. See previous My Chart message. Pt was advised to contact office regarding how blood sugars have been and if he wants to increase the Rybelsus. Hollie Currie LPN documented in this encounter [facility] 04-24-2022 Miscellaneous Notes The following approved medication requests have been transmitted electronically. Requested Prescriptions Signed Prescriptions Disp Refills flash glucose sensor (FREESTYLE JENNIFER 2 SENSOR) kit 2 Each 11 Si Each every 2 weeks. Authorizing Provider: JULI SHAIKH MD [employer] wants to know if patient's script for Jennifer sensors can be rewritten as 2 sensors at a time with a 28 day supply. Please advise at [phone] documented in this encounter [facility] 04-18-2022 Miscellaneous Notes Patient phones requesting refills as follows: Pending Prescriptions Disp Refills METOPROLOL SUCCINATE ER 100 MG TABLET,EXTENDED RELEASE 24 HR 30 tablet 5 Sig: Take 1 tablet by mouth once daily. JUNE: No LISINOPRIL 20 MG TABLET 30 tablet 5 Sig: Take 1 tablet by mouth once daily. JUNE: No ROULA-01/25/22 Labs-11/23/21 NOV-none meds filled 10/19/21 Please review and advise. Lenka Kan LPN documented in this encounter [facility] 04-18-2022 Miscellaneous Notes Patient phones requesting refills as follows: Pending Prescriptions Disp Refills GABAPENTIN 300 MG CAPSULE 30 capsule 2 Sig: Take 1 capsule by mouth daily at bedtime for 90 days. JUNE: No ROULA-01/25/22 Labs-11/23/21 NOV-none med filled 03/27/22 Please review and advise. Lenka Kan LPN documented in this encounter [facility] 03-27-2022 Miscellaneous Notes The following approved medication requests have been transmitted electronically. Signed Prescriptions Disp Refills flash glucose sensor (FREESTYLE JENNIFER 14 DAY SENSOR) kit 1 Kit 5 Sig: UAD. Dx: Uncontrolled type 2 diabetes. No insulin. JUNE: No Authorizing Provider: JULI SHAIKH gabapentin (NEURONTIN) 300 mg capsule 30 capsule 2 Sig: Take 1 capsule by mouth daily at bedtime for 90 days. JUNE: No Authorizing Provider: JULI SHAIKH MD [facility] called to request this same refill for Freestyle Jennifer sensors. [facility] 01/25/22 NOV appointments have not been rescheduled. msg sent to pt to reschedule appointment. Hollie Currie LPN documented in this encounter [facility] 01-25-2022 Instructions Viv Hooper PA-C - 01/25/2022 11:28 AM EDT Please consider doing colonoscopy. Let us know if you want to see this up. We will increase rybelsus to 7mg as soon as you are done with current dose. After the 30 days on 7mg dose we will increase you to 14mg. I sent in gabapentin for you neuropathy in feet. Let Dr. Shaikh know how this is doing at your follow up. But contact us sooner if needed. documented in this encounter [facility] 01-25-2022 History of Presen t illness Narrative Chief Complaint Patient presents with: Recheck HPI Alex Burks is a 46 year old male who presents here today for DM recheck. Patient with uncontrolled DM2, HLP, HTN, and those as below. Was last seen in november for routine visit. Patient's a1c elevated and patient has started the process of getting in with our diabetic team. We started him on rybelsus, he's still on the 3mg dose as covering provider was not aware I wanted to titrate him up each month. But he is tolerating medication and is noting that his glucose readings are no longer in the 200s. Last 6 Encounter Wt Readings: Date: Wt: 01/25/2022 99.3 kg (219 lb) 12/11/2021 102.7 kg (226 lb 8 oz) 12/06/2021 99.8 kg (220 lb) 11/23/2021 99.8 kg (220 lb) 06/22/2021 99.5 kg (219 lb 6.4 oz) 03/11/2021 103.9 kg (229 lb) Past medical history, appointments, medications, allergies reviewed. Previous Medical History PAST MEDICAL HISTORY Diagnosis Date Bipolar depression (HCC) 04/15/2017 Depression 03/26/2011 Elevated LFTs 02/13/2019 Erectile dysfunction 06/06/2018 Essential hypertension 01/30/2012 Ex-smoker 06/06/2018 Started at age 13 up to 2 PPD and quit 2011 (48 pack year Hx) Family history of NH (myocardial infarction) 06/06/2018 Fatty liver 02/20/2019 GERD (gastroesophageal reflux disease) 03/26/2011 History of bee sting allergy 03/26/2011 Hypercalcemia 02/26/2020 Re-checked 02/2020 Mixed hyperlipidemia 06/06/2018 Moderate obstructive sleep apnea 12/31/2020 Tremor 02/26/2019 Since starting psych medication Type 2 diabetes mellitus without complication, without long-term current use of insulin (HCC) 02/29/2020 Uncontrolled type 2 diabetes mellitus with hyperglycemia (HCC) 10/27/2021 Previous Surgical History PAST SURGICAL HISTORY Procedure Laterality Date APPENDECTOMY 2001? Family History FAMILY HISTORY Problem Relation Age of Onset Hypertension Mother Heart Father in his 50's Colon Cancer Paternal Grandmother 70 Diabetes Paternal Uncle Coronary Artery Disease Paternal Uncle Stroke Paternal Uncle Stroke Paternal Uncle Coronary Artery Disease Paternal Grandfather 50-55 Alzheimer's Disease No Family History Breast Cancer No Family History Ovarian cancer No Family History Prostate Cancer No Family History Seizures No Family History Thyroid No Family History Kidney Disease No Family History Patient Allergies ALLERGIES Allergen Reactions Bees Swelling Current Medications Current Outpatient Medications on File Prior to Visit Medication Sig famotidine (PEPCID) 20 mg tablet Take 1 tablet by mouth twice daily as needed. colestipol (COLESTID) 1 gram tablet Take 2 tablets by mouth twice daily. flash glucose sensor (FREESTYLE JENNIFER 14 DAY SENSOR) kit UAD. Dx: Uncontrolled type 2 diabetes. No insulin. flash glucose scanning reader (FREESTYLE JENNIFER 14 DAY READER) UAD. Dx: uncontrolled type 2 diabetes. No insulin. metoprolol succinate ER (TOPROL XL) 100 mg Take 1 tablet by mouth once daily. lisinopril (ZESTRIL, PRINIVIL) 20 mg tablet Take 1 tablet by mouth once daily. EPINEPHrine (EPIPEN) 0.3 mg/0.3 mL auto-injector Inject 0.3 mL intramuscularly as needed. naproxen (NAPROSYN) 500 mg tablet Take 1 tablet by mouth twice daily as needed (for pain/inflammation). Take with food. fluticasone (FLONASE) 50 mcg/actuation nasal spray Use 2 Sprays in each nostril once daily. Rinse mouth after use. loratadine (CLARITIN) 10 mg tablet Take 10 mg by mouth once daily. divalproex DR (DEPAKOTE) 500 mg EC tablet Take 3 tablets by mouth once daily. busPIRone (BUSPAR) 5 mg tablet Take 5 mg by mouth twice daily as needed. albuterol (PROVENTIL) 2.5 mg /3 mL (0.083 %) nebulizer solution Use 3 mL via nebulizer every 6 hours as needed for Wheezing/Shortness of Breath. Use over 5-15minutes. Ofega-4-SHI-EPA-Fish Oil (FISH OIL) 1,000 mg (120 mg-180 mg) cap Take 2 capsules by mouth once daily. risperiDONE (RISPERDAL) 2 mg tablet Take 2 mg by mouth once daily. LACTOBACILLUS RHAMNOSUS GG (CULTURELLE ORAL) Take 1 capsule by mouth once daily. multivitamin tablet Take 1 tablet by mouth once daily. Lancets lancets Test blood sugar(s) 2-3 times daily. Dx: Type 2 DM - Uncontrolled E11.65 Insulin: No (Patient not taking: Reported on 06/22/2021 ) blood sugar diagnostic (BLOOD GLUCOSE TEST) test strip Test blood sugar(s) 2-3 times daily. Dx: Type 2 DM - Uncontrolled E11.65 Insulin: No (Patient not taking: Reported on 06/22/2021 ) ProAir RespiClick 90 mcg/actuation breath activated (albuterol sulfate) Inhale 2 Puffs as instructed every 6 hours as needed. Current Facility-Administered Medications on File Prior to Visit Medication perflutren lipid microspheres 1.3 mL in NaCl (PF) 0.9% 10 mL injection (DEFINITY) sodium chloride 0.9 % (flush) 10 mL (BD POSIFLUSH) Social History Social History Tobacco Use Smoking status: Former Smoker Packs/day: 2.00 Years: 12.00 Pack years: 24.00 Types: Cigarettes Quit date: 09/15/2008 Years since quittin.3 Smokeless tobacco: Never Used Tobacco comment: Quit 2007 Substance Use Topics Alcohol use: No Alcohol/week: 0.0 standard drinks Comment: states that he used to drink a lot Drug use: No Review of Symptoms REVIEW OF SYSTEMS GENERAL: No weight loss, malaise or fevers NECK: Negative for lumps, goiter, pain and significant neck swelling RESPIRATORY: Negative for cough, hemoptysis, wheezing, COPD, dyspnea or shortness of breath CARDIOVASCULAR: Negative for chest pain, leg swelling, hypertension, CHF or palpitations EXAM: BP 112/86 (BP Site: Left Arm, BP Position: Sitting, BP Cuff Size: Large Adult) Pulse 88 Temp 36.2 C (97.2 F) Resp 18 Wt 99.3 kg (219 lb) BMI 28.50 kg/m General Appearance: Well appearing, alert, in no acute distress, well-hydrated, well nourished. and Overweight. Neck: Supple, no adenopathy; thyroid Enlarged , no bruits. Lungs: Lungs clear to auscultation. No wheezing, rhonchi, rales.. Heart: RRR without murmur, gallop, or rubs. No ectopy. Extremities: No deformities, edema, skin discoloration, clubbing or cyanosis. Good capillary refill. . Peripheral Pulses: Normal.. Feet:Shoes and socks removed, normal distal pulses, not sensitive to monofilament bilaterally, vibratory perception decreased bilaterally, nails notable for Hypertrophic or Yellowish and erythema and scaling noted in between toes. Health Maintenance List DILATED RETINAL EXAM Never done BP CONTROLLED (<130/80) Never done COLORECTAL CANCER SCREENING Never done DIABETIC FOOT EXAM due on 12/31/2021 ONE PNEUMOVAX PRIOR TO AGE 65 due on 07/17/2022 HBA1C due on 02/23/2022 URINE ALBUMIN:CREATININE RATIO due on 11/23/2022 LDL CHOLESTEROL due on 11/23/2022 ANNUAL PCP TEAM CHRONIC DISEASE VISIT due on 11/23/2022 DTAP,TDAP,TD(2 - Td or Tdap) due on 03/22/2024 INFLUENZA Completed HEPATITIS C SCREENING Completed COVID-19 VACCINE Completed MENINGOCOCCAL CONJUGATE Aged Out HIV SCREENING Discontinued Data reviewed Component Latest Ref Rng & Units 11/23/2021 WBC 3.70 - 11.00 k/uL 6.04 RBC 4.20 - 6.00 m/uL 4.90 Hemoglobin 13.0 - 17.0 g/dL 16.4 Hematocrit 39.0 - 51.0 % 46.9 MCV 80.0 - 100.0 fL 95.7 MCH 26.0 - 34.0 pg 33.5 MCHC 30.5 - 36.0 g/dL 35.0 RDW-CV 11.5 - 15.0 % 12.1 Platelet Count 150 - 400 k/uL 181 MPV 9.0 - 12.7 fL 11.6 Neut% % 47.6 Abs Neut (ANC) 1.45 - 7.50 k/uL 2.88 Lymph% % 39.6 Abs Lymph 1.00 - 4.00 k/uL 2.39 Avery% % 9.6 Abs Avery <0.87 k/uL 0.58 Eosin% % 1.7 Abs Eosin <0.46 k/uL 0.10 Baso% % 1.0 Abs Baso <0.11 k/uL 0.06 Immature Gran % % 0.5 IMMATURE GRANS (ABS) <0.10 k/uL 0.03 NRBC /100 WBC 0.0 Absolute nRBC <0.01 k/uL <0.01 DTYPE Auto Protein, Total 6.3 - 8.0 g/dL 7.6 Albumin 3.9 - 4.9 g/dL 5.0 (H) Calcium 8.5 - 10.2 mg/dL 9.8 Bilirubin, Total 0.2 - 1.3 mg/dL 0.4 Alkaline Phosphatase 38 - 113 U/L 105 AST 14 - 40 U/L 44 (H) ALT 10 - 54 U/L 79 (H) Glucose 74 - 99 mg/dL 315 (H) BUN 9 - 24 mg/dL 14 Creatinine 0.73 - 1.22 mg/dL 0.95 Sodium 136 - 144 mmol/L 129 (L) Potassium 3.7 - 5.1 mmol/L 4.4 Chloride 97 - 105 mmol/L 91 (L) CO2 22 - 30 mmol/L 25 Anion Gap 9 - 18 mmol/L 13 eGFR >=60 mL/min/1.73m 100 Total Cholesterol, Nonfasting <200 mg/dL 172 Triglycerides, Nonfasting <150 mg/dL 702 (H) HDL Cholesterol, Nonfasting >39 mg/dL 23 (L) LDL Cholesterol, Nonfasting Non HDL Cholesterol, Nonfasting <130 mg/dL 149 (H) VLDL Cholesterol, Nonfasting Total Chol/HDL Ratio, Nonfasting <5.10 mg/dL 7.48 (H) LDL/HDL Ratio, Nonfasting Creatinine, Ur Random (UCRR) 20.0 - 300.0 mg/dL 106.1 Albumin, Urine Random mg/L 13.4 Albumin/Creat Ratio <30 mg/g 13 Hemoglobin A1C 4.3 - 5.6 % 9.7 (H) Estimated Average Glucose mg/dL 232 Vitamin D 25 Hydroxy 31.0 - 80.0 ng/mL 26.7 (L) ASSESSMENT/PLAN: 1. Type 2 diabetes mellitus with diabetic polyneuropathy, without long-term current use of insulin (HCC) - ICD9: 250.60, 357.2, ICD10: E11.42 (primary diagnosis) uncontrolled - Patient to increase rybelsus to 7mg once he finishes his 3mg dose. We then will increase to 14mg. Will start gabapentin to see if helps with neuropathy symptoms F/u as scheduled in March. Labs prior. - METFORMIN 500 MG TABLET - HGB A1C - CBC + DIFF 2. Mixed hyperlipidemia - ICD9: 272.2, ICD10: E78.2 - LIPID PANEL, NONFASTING 3. Vitamin D deficiency - ICD9: 268.9, ICD10: E55.9 - VITAMIN D 25 HYDROXY Viv Hooper PA-C documented in this encounter [facility] 01-15-2022 Miscellaneous Notes The following approved medication requests have been transmitted electronically. Signed Prescriptions Disp Refills semaglutide (RYBELSUS) 3 mg tablet 30 tablet 0 Sig: Take 1 tablet by mouth daily before breakfast. JUNE: No Authorizing Provider: JULI SHAIKH MD Last refill 11/28/21 Qty: 30 with 0 refills Pt has appt 01/25/22 Hollie Currie LPN documented in this encounter [facility] 12-28-2021 Miscellaneous Notes Attempted to contact pt. Phone rings fast busy, unable to reach pt. Sent pt a [facility] message regarding he missed his appointment today with Viv and this makes his 3rd no show appointment in the past 12 months. Letter was also mailed to pt. Hollie Currie LPN documented in this encounter [facility] 10-31-2021 Miscellaneous Notes Called pt. regarding New referral. Left message.If pt. returns our call an appt will be scheduled. Called pt. regarding New referral. Left message. documented in this encounter [facility] documented as of this encounter (statuses as of 12/28/2021) [address]18-2021 History of Past illness Narrative* Problem Noted Date Resolved Date Acute left-sided low back pain 12/01/2020 0 01/06/2021 documented as of this encounter (statuses as of 01/15/2022) [address]18-2021 History of Past illness Narrative* Problem Noted Date Resolved Date Acute left-sided low back pain 12/01/2020 0 01/06/2021 documented as of this encounter (statuses as of 01/25/2022) [address]18-2021 History of Past illness Narrative* Problem Noted Date Resolved Date Acute left-sided low back pain 12/01/2020 0 01/06/2021 documented as of this encounter (statuses as of 02/05/2022) [address]18-2021 History of Past illness Narrative* Problem Noted Date Resolved Date Acute left-sided low back pain 12/01/2020 0 01/06/2021 documented as of this encounter (statuses as of 03/08/2022) [address]18-2021 History of Past illness Narrative* Problem Noted Date Resolved Date Acute left-sided low back pain 12/01/2020 0 01/06/2021 documented as of this encounter (statuses as of 03/27/2022) [address]18-2021 History of Past illness Narrative* Problem Noted Date Resolved Date Acute left-sided low back pain 12/01/2020 0 01/06/2021 documented as of this encounter (statuses as of 04/18/2022) [address]18-2021 History of Past illness Narrative* Problem Noted Date Resolved Date Acute left-sided low back pain 12/01/2020 0 01/06/2021 documented as of this encounter (statuses as of 04/18/2022) [address]18-2021 History of Past illness Narrative* Problem Noted Date Resolved Date Acute left-sided low back pain 12/01/2020 0 01/06/2021 documented as of this encounter (statuses as of 04/24/2022) [address]18-2021 History of Past illness Narrative* Problem Noted Date Resolved Date Acute left-sided low back pain 12/01/2020 0 01/06/2021 documented as of this encounter (statuses as of 04/27/2022) [address]18-2021 History of Past illness Narrative* Problem Noted Date Resolved Date Acute left-sided low back pain 12/01/2020 0 01/06/2021 documented as of this encounter (statuses as of 05/14/2022) [address]18-2021 History of Past illness Narrative* Problem Noted Date Resolved Date Acute left-sided low back pain 12/01/2020 0 01/06/2021 documented as of this encounter (statuses as of 05/14/2022) [address]18-2021 History of Past illness Narrative* Problem Noted Date Resolved Date Acute left-sided low back pain 12/01/2020 0 01/06/2021 documented as of this encounter (statuses as of 05/14/2022) [address]-2021 History of Past illness Narrative* Problem Noted Date Resolved Date Acute left-sided low back pain 12/01/2020 0 01/06/2021 documented as of this encounter (statuses as of 05/23/2022) [address]-2021 History of Past illness Narrative* Problem Noted Date Resolved Date Acute left-sided low back pain 12/01/2020 0 01/06/2021 documented as of this encounter (statuses as of 06/14/2022) [address]-2021 History of Past illness Narrative* Problem Noted Date Resolved Date Acute left-sided low back pain 12/01/2020 0 01/06/2021 documented as of this encounter (statuses as of 07/04/2022) [address]18-2021 History of Past illness Narrative* Problem Noted Date Resolved Date Acute left-sided low back pain 12/01/2020 0 01/06/2021 documented as of this encounter (statuses as of 07/06/2022) [address]18-2021 History of Past illness Narrative* Problem Noted Date Resolved Date Acute left-sided low back pain 12/01/2020 0 01/06/2021 documented as of this encounter (statuses as of 07/10/2022) [address]18-2021 History of Past illness Narrative* Problem Noted Date Resolved Date Acute left-sided low back pain 12/01/2020 0 01/06/2021 documented as of this encounter (statuses as of 07/12/2022) [address]-2021 History of Past illness Narrative* Problem Noted Date Resolved Date Acute left-sided low back pain 12/01/2020 0 01/06/2021 documented as of this encounter (statuses as of 07/16/2022) [address]18-2021 History of Past illness Narrative* Problem Noted Date Resolved Date Acute left-sided low back pain 12/01/2020 0 01/06/2021 documented as of this encounter (statuses as of 08/13/2022) [address]18-2021 History of Past illness Narrative* Problem Noted Date Resolved Date Acute left-sided low back pain 12/01/2020 0 01/06/2021 documented as of this encounter (statuses as of 08/14/2022) [address]18-2021 History of Past illness Narrative* Problem Noted Date Resolved Date Acute left-sided low back pain 12/01/2020 0 01/06/2021 documented as of this encounter (statuses as of 08/15/2022) [address]18-2021 History of Past illness Narrative* Problem Noted Date Resolved Date Acute left-sided low back pain 12/01/2020 0 01/06/2021 documented as of this encounter (statuses as of 08/21/2022) [address]18-2021 History of Past illness Narrative* Problem Noted Date Resolved Date Acute left-sided low back pain 12/01/2020 0 01/06/2021 documented as of this encounter (statuses as of 09/05/2022) [address]18-2021 History of Past illness Narrative* Problem Noted Date Resolved Date Acute left-sided low back pain 12/01/2020 0 01/06/2021 documented as of this encounter (statuses as of 10/04/2022) [address]18-2021 History of Past illness Narrative* Problem Noted Date Resolved Date Acute left-sided low back pain 12/01/2020 0 01/06/2021 documented as of this encounter (statuses as of 10/11/2022) [address]18-2021 History of Past illness Narrative* Problem Noted Date Resolved Date Acute left-sided low back pain 12/01/2020 0 01/06/2021 documented as of this encounter (statuses as of 10/15/2022) [address]18-2021 History of Past illness Narrative* Problem Noted Date Resolved Date Acute left-sided low back pain 12/01/2020 0 01/06/2021 documented as of this encounter (statuses as of 10/15/2022) [address]18-2021 History of Past illness Narrative* Problem Noted Date Resolved Date Acute left-sided low back pain 12/01/2020 0 01/06/2021 documented as of this encounter (statuses as of 11/06/2022) [address]18-2021 History of Past illness Narrative* Problem Noted Date Resolved Date Acute left-sided low back pain 12/01/2020 0 01/06/2021 documented as of this encounter (statuses as of 01/12/2023) [address]18-2021 History of Past illness Narrative* Problem Noted Date Resolved Date Acute left-sided low back pain 12/01/2020 0 01/06/2021 documented as of this encounter (statuses as of 01/21/2023) [address]18-2021 History of Past illness Narrative* Problem Noted Date Resolved Date Acute left-sided low back pain 12/01/2020 0 01/06/2021 documented as of this encounter (statuses as of 02/13/2023) [address]18-2021 History of Past illness Narrative* Problem Noted Date Resolved Date Acute left-sided low back pain 12/01/2020 0 01/06/2021 documented as of this encounter (statuses as of 02/13/2023) [address]18-2021 History of Past illness Narrative* Problem Noted Date Diagnosed Date Resolved Date Acute left-sided low back pain 12/01/2020 01/06/2021 documented as of this encounter (statuses as of 05/02/2023) [address]18-2021 History of Past illness Narrative* Problem Noted Date Diagnosed Date Resolved Date Acute left-sided low back pain 12/01/2020 01/06/2021 documented as of this encounter (statuses as of 05/10/2023) [address]18-2021 History of Past illness Narrative* Problem Noted Date Diagnosed Date Resolved Date Acute left-sided low back pain 12/01/2020 01/06/2021 documented as of this encounter (statuses as of 06/04/2023) [address]18-2021 History of Past illness Narrative* Problem Noted Date Diagnosed Date Resolved Date Acute left-sided low back pain 12/01/2020 01/06/2021 documented as of this encounter (statuses as of 06/04/2023) [address]18-2021 History of Past illness Narrative* Problem Noted Date Diagnosed Date Resolved Date Acute left-sided low back pain 12/01/2020 01/06/2021 documented as of this encounter (statuses as of 06/10/2023) [address]18-2021 History of Past illness Narrative* Problem Noted Date Diagnosed Date Resolved Date Acute left-sided low back pain 12/01/2020 01/06/2021 documented as of this encounter (statuses as of 06/12/2023) [address]18-2021 History of Past illness Narrative* Problem Noted Date Diagnosed Date Resolved Date Acute left-sided low back pain 12/01/2020 01/06/2021 documented as of this encounter (statuses as of 06/15/2023) [address]18-2021 History of Past illness Narrative* Problem Noted Date Diagnosed Date Resolved Date Acute left-sided low back pain 12/01/2020 01/06/2021 documented as of this encounter (statuses as of 06/15/2023) [address]18-2021 History of Past illness Narrative* Problem Noted Date Diagnosed Date Resolved Date Acute left-sided low back pain 12/01/2020 01/06/2021 documented as of this encounter (statuses as of 06/18/2023) [address]18-2021 History of Past illness Narrative* Problem Noted Date Diagnosed Date Resolved Date Acute left-sided low back pain 12/01/2020 01/06/2021 documented as of this encounter (statuses as of 06/20/2023) [address]18-2021 History of Past illness Narrative* Problem Noted Date Diagnosed Date Resolved Date Acute left-sided low back pain 12/01/2020 01/06/2021 documented as of this encounter (statuses as of 07/12/2023) [address]18-2021 History of Past illness Narrative* Problem Noted Date Diagnosed Date Resolved Date Acute left-sided low back pain 12/01/2020 01/06/2021 documented as of this encounter (statuses as of 07/17/2023) [address]18-2021 History of Past illness Narrative* Problem Noted Date Diagnosed Date Resolved Date Acute left-sided low back pain 12/01/2020 01/06/2021 documented as of this encounter (statuses as of 07/21/2023) [address]18-2021 History of Past illness Narrative* Problem Noted Date Diagnosed Date Resolved Date Acute left-sided low back pain 12/01/2020 01/06/2021 documented as of this encounter (statuses as of 07/23/2023) [address]18-2021 History of Past illness Narrative* Problem Noted Date Diagnosed Date Resolved Date Acute left-sided low back pain 12/01/2020 01/06/2021 documented as of this encounter (statuses as of 08/01/2023) [address]18-2021 History of Past illness Narrative* Problem Noted Date Diagnosed Date Resolved Date Acute left-sided low back pain 12/01/2020 01/06/2021 documented as of this encounter (statuses as of 08/03/2023) [address]18-2021 History of Past illness Narrative* Problem Noted Date Diagnosed Date Resolved Date Acute left-sided low back pain 12/01/2020 01/06/2021 documented as of this encounter (statuses as of 08/14/2023) [address]18-2021 History of Past illness Narrative* Problem Noted Date Diagnosed Date Resolved Date Acute left-sided low back pain 12/01/2020 01/06/2021 documented as of this encounter (statuses as of 08/30/2023) [facility] Type 2 diabetes mellitus with diabetic polyneuropathy, without long-term current use of insulin (HCC)- Primary Mixed hyperlipidemia Vitamin D deficiency Unspecified vitamin D deficiency [facility] Diagnosis Type 2 diabetes mellitus with diabetic polyneuropathy, without long-term current use of insulin ([facility] Diagnosis Essential hypertension Unspecified essential hypertension [facility]* Diagnosis History of bee sting allergy Allergy to insects and arachnids [facility]* Diagnosis Bacterial sinusitis Unspecified sinusitis (chronic) documented in this encounter [facility] note* Diagnosis Bacterial sinusitis Unspecified sinusitis (chronic) [facility]* Diagnosis Type 2 diabetes mellitus with diabetic polyneuropathy, without long-term current use of insulin ([facility])- Primary Essential hypertension Unspecified essential hypertension Mixed hyperlipidemia Uncontrolled type 2 diabetes mellitus with hyperglycemia ([facility]) Vitamin D insufficiency Unspecified vitamin D deficiency [facility] Diagnosis Uncontrolled type 2 diabetes mellitus with hyperglycemia (HCC)- Primary Type 2 diabetes mellitus with diabetic polyneuropathy, without long-term current use of insulin ([facility]) Essential hypertension Unspecified essential hypertension Mixed hyperlipidemia Tremor Abnormal involuntary movements Moderate obstructive sleep apnea Obstructive sleep apnea (adult) (pediatric) Gastroesophageal reflux disease without esophagitis Esophageal reflux Bipolar depression (HCC) Bipolar I disorder, most recent episode (or current) depressed, unspecified Screening for colon cancer Special screening for malignant neoplasms, colon Immunity status testing Antibody response examination documented in this encounter [facility] note* Diagnosis Hyponatremia- Primary Hyposmolality and/or hyponatremia [facility]* Diagnosis Type 2 diabetes mellitus with diabetic polyneuropathy, without long-term current use of insulin ([facility]) [facility]* Diagnosis Bilateral impacted cerumen- Primary Impacted cerumen [facility]* Diagnosis Bacterial sinusitis Unspecified sinusitis (chronic) [facility]* Diagnosis Essential hypertension Unspecified essential hypertension [facility]* Diagnosis Bacterial sinusitis Unspecified sinusitis (chronic) [facility]* Diagnosis Type 2 diabetes mellitus with diabetic polyneuropathy, without long-term current use of insulin ([facility]) Bacterial sinusitis Unspecified sinusitis (chronic) [facility]* Diagnosis Essential hypertension Unspecified essential hypertension [facility]* Diagnosis Well adult exam- Primary Routine general medical examination at a health care facility Type 2 diabetes mellitus with diabetic polyneuropathy, without long-term current use of insulin (HCC) Essential hypertension Unspecified essential hypertension Mixed hyperlipidemia Gastroesophageal reflux disease without esophagitis Esophageal reflux Depression, unspecified depression type Bipolar depression (HCC) Bipolar I disorder, most recent episode (or current) depressed, unspecified Tremor Abnormal involuntary movements Hyponatremia Hyposmolality and/or hyponatremia Moderate obstructive sleep apnea Obstructive sleep apnea (adult) (pediatric) Seasonal allergic rhinitis, unspecified trigger Multiple thyroid nodules Nontoxic multinodular goiter Need for vaccination Need for prophylactic vaccination and inoculation against unspecified single disease History of bee sting allergy Allergy to insects and arachnids [facility] Diagnosis Multiple thyroid nodules- Primary Nontoxic multinodular goiter [facility]* Diagnosis Multiple thyroid nodules Nontoxic multinodular goiter [facility]* Diagnosis Mixed hyperlipidemia- Primary Family history of [place] (myocardial infarction) Family history of ischemic heart disease Essential hypertension Unspecified essential hypertension [facility]* Diagnosis Multinodular goiter- Primary Nontoxic multinodular goiter documented [facility] Diagnosis Multiple thyroid nodules- Primary Nontoxic multinodular goiter Multinodular goiter Nontoxic multinodular goiter documented [facility]* Diagnosis Bacterial sinusitis Unspecified sinusitis (chronic) [facility]* Diagnosis Need for vaccination- Primary Need for prophylactic vaccination and inoculation against unspecified single disease documented in this encounter [facility] for referral (narrative)* Diagnostic Procedure Only (Routine) - Authorized Specialty Diagnoses / Procedures Referred By Ana cuevas Referred To Contact US IMAGING Diagnoses Multiple thyroid nodules Procedures US THYROID/PARATHYROID US SOFT TISSUE HEAD & NECK REAL TIME IMGE Juli Stanford MD [address] [place] [address] [place] [address] Referral ID Status Reason Start Date Expiration Date Visits Requested Visits Authorized [id number] Authorized Auto-Generat ed Referral 06/11/2023 07/10/2024 1 1 [facility] Diagnostic Procedure Only (Routine) - Closed Specialty Diagnoses / Procedures Referred By Contac t Referred To Contact US IMAGING Diagnoses Multiple thyroid nodules Procedures US THYROID/PARATHYROID US SOFT TISSUE HEAD & NECK REAL TIME IMGE DOCM Juli Shaikh MD [address] [place] [address] [place] [address] Referral ID Status Reason Start Date Expiration Date V isits Requested Visits Authorized [id number] Closed Auto-Generate d Referral 06/11/2023 07/10/2024 1 1 [facility] Summary Purpose Family History No Family History Records FoundNo Family History Records FoundNo Family History Records FoundNo Family History Records Found Advance Directives No Advanced Directives Records FoundDocuments on File Type Date Recorded 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 Advance Directive(s) 03/11/2021 9:20 PM Reason for Referral Specialty Diagnoses / Procedures Referred By Contac t Referred To Contact General Surgery Diagnoses Screening for colon cancer Procedures CONSULT TO GENERAL SURGERY OFFICE/OUTPATIENT [facility] 60-74 MINUTES Viv Hooper PA-C [address] [place] [address] Referral ID Status Reason Start Date Expiration Date Visits Requested Visits Authorized [id number] Authorized PCP Requested Referral 07/06/2023 1 1 Specialty Diagnoses / Procedures Referred By Contac t Referred To Contact General Surgery Diagnoses Multiple thyroid nodules Procedures CONSULT TO GENERAL SURGERY OFFICE/OUTPATIENT [facility] 60-74 MINUTES Juli Shaikh MD [address] [place] [address] Referral ID Status Reason Start Date Expiration Date Visits Requested Visits Authorized [id number] Authorized PCP Requested Referral 06/14/2023 06/13/2024 1 1 Specialty Diagnoses / Procedures Referred By Contac t Referred To Contact Viv Hooper PA-C [address] [place] [address] Referral ID Status Reason Start Date Expiration Date Visits Re quested Visits Authorized [id number] Closed 1 1 Additional Source Comments (unrecognized sect ion and content) No Status Records FoundNo Status Records FoundNo Status Records FoundNo Status Records Found INFORMATION SOURCE (unrecogn ized section and content) DATE CREATED AUTHOR AUTHOR'S ORGANIZ ATION 04/01/2021 [facility] DATE CREATED AUTHOR AUTHOR'S ORGANIZ ATION 06/24/2021 [facility] DATE CREATED AUTHOR AUTHOR'S ORGANIZ ATION 09/01/2023 [facility] Source Comments (unrecognize d section and content) In the event this informatio n is protected by the Federal Confidentiality of Alcohol and Drug Abuse Patient Records regulations: The Federal rules restrict any use of the information to criminally investigate or prosecute any alcohol or drug abuse patient.[facility] Hospital[facility] the event this information is protected by the Federal Confidentiality of Alcohol and Drug Abuse Patient Records regulations: The Federal rules restrict any use of the information to criminally investigate or prosecute any alcohol or drug abuse patient.[facility] Hospital[facility] the event this information is protected by the Federal Confidentiality of Alcohol and Drug Abuse Patient Records regulations: The Federal rules restrict any use of the information to criminally investigate or prosecute any alcohol or drug abuse patient.[facility] HospitalIn the event this information is protected by the Federal Confidentiality of Alcohol and Drug Abuse Patient Records regulations: The Federal rules restrict any use of the information to criminally investigate or prosecute any alcohol or drug abuse patient.[facility] HospitalIn the event this information is protected by the Federal Confidentiality of Alcohol and Drug Abuse Patient Records regulations: The Federal rules restrict any use of the information to criminally investigate or prosecute any alcohol or drug abuse patient.[facility] Hospital[facility] the event this information is protected by the Federal Confidentiality of Alcohol and Drug Abuse Patient Records regulations: The Federal rules restrict any use of the information to criminally investigate or prosecute any alcohol or drug abuse patient.[facility] HospitalIn the event this information is protected by the Federal Confidentiality of Alcohol and Drug Abuse Patient Records regulations: The Federal rules restrict any use of the information to criminally investigate or prosecute any alcohol or drug abuse patient.[facility] HospitalIn the event this information is protected by the Federal Confidentiality of Alcohol and Drug Abuse Patient Records regulations: The Federal rules restrict any use of the information to criminally investigate or prosecute any alcohol or drug abuse patient.[facility] HospitalIn the event this information is protected by the Federal Confidentiality of Alcohol and Drug Abuse Patient Records regulations: The Federal rules restrict any use of the information to criminally investigate or prosecute any alcohol or drug abuse patient.[facility] HospitalIn the event this information is protected by the Federal Confidentiality of Alcohol and Drug Abuse Patient Records regulations: The Federal rules restrict any use of the information to criminally investigate or prosecute any alcohol or drug abuse patient.[facility] HospitalIn the event this information is protected by the Federal Confidentiality of Alcohol and Drug Abuse Patient Records regulations: The Federal rules restrict any use of the information to criminally investigate or prosecute any alcohol or drug abuse patient.[facility] HospitalIn the event this information is protected by the Federal Confidentiality of Alcohol and Drug Abuse Patient Records regulations: The Federal rules restrict any use of the information to criminally investigate or prosecute any alcohol or drug abuse patient.[facility] HospitalIn the event this information is protected by the Federal Confidentiality of Alcohol and Drug Abuse Patient Records regulations: The Federal rules restrict any use of the information to criminally investigate or prosecute any alcohol or drug abuse patient.[facility] HospitalIn the event this information is protected by the Federal Confidentiality of Alcohol and Drug Abuse Patient Records regulations: The Federal rules restrict any use of the information to criminally investigate or prosecute any alcohol or drug abuse patient.[facility] HospitalIn the event this information is protected by the Federal Confidentiality of Alcohol and Drug Abuse Patient Records regulations: The Federal rules restrict any use of the information to criminally investigate or prosecute any alcohol or drug abuse patient.[facility] HospitalIn the event this information is protected by the Federal Confidentiality of Alcohol and Drug Abuse Patient Records regulations: The Federal rules restrict any use of the information to criminally investigate or prosecute any alcohol or drug abuse patient.[facility] HospitalIn the event this information is protected by the Federal Confidentiality of Alcohol and Drug Abuse Patient Records regulations: The Federal rules restrict any use of the information to criminally investigate or prosecute any alcohol or drug abuse patient.[facility] HospitalIn the event this information is protected by the Federal Confidentiality of Alcohol and Drug Abuse Patient Records regulations: The Federal rules restrict any use of the information to criminally investigate or prosecute any alcohol or drug abuse patient.[facility] the event this information is protected by the Federal Confidentiality of Alcohol and Drug Abuse Patient Records regulations: The Federal rules restrict any use of the information to criminally investigate or prosecute any alcohol or drug abuse patient.[facility] HospitalIn the event this information is protected by the Federal Confidentiality of Alcohol and Drug Abuse Patient Records regulations: The Federal rules restrict any use of the information to criminally investigate or prosecute any alcohol or drug abuse patient.[facility] HospitalIn the event this information is protected by the Federal Confidentiality of Alcohol and Drug Abuse Patient Records regulations: The Federal rules restrict any use of the information to criminally investigate or prosecute any alcohol or drug abuse patient.[facility] HospitalIn the event this information is protected by the Federal Confidentiality of Alcohol and Drug Abuse Patient Records regulations: The Federal rules restrict any use of the information to criminally investigate or prosecute any alcohol or drug abuse patient.[facility] HospitalIn the event this information is protected by the Federal Confidentiality of Alcohol and Drug Abuse Patient Records regulations: The Federal rules restrict any use of the information to criminally investigate or prosecute any alcohol or drug abuse patient.[facility] HospitalIn the event this information is protected by the Federal Confidentiality of Alcohol and Drug Abuse Patient Records regulations: The Federal rules restrict any use of the information to criminally investigate or prosecute any alcohol or drug abuse patient.[facility] HospitalIn the event this information is protected by the Federal Confidentiality of Alcohol and Drug Abuse Patient Records regulations: The Federal rules restrict any use of the information to criminally investigate or prosecute any alcohol or drug abuse patient.[facility] HospitalIn the event this information is protected by the Federal Confidentiality of Alcohol and Drug Abuse Patient Records regulations: The Federal rules restrict any use of the information to criminally investigate or prosecute any alcohol or drug abuse patient.[facility] HospitalIn the event this information is protected by the Federal Confidentiality of Alcohol and Drug Abuse Patient Records regulations: The Federal rules restrict any use of the information to criminally investigate or prosecute any alcohol or drug abuse patient.[facility] HospitalIn the event this information is protected by the Federal Confidentiality of Alcohol and Drug Abuse Patient Records regulations: The Federal rules restrict any use of the information to criminally investigate or prosecute any alcohol or drug abuse patient.[facility] HospitalIn the event this information is protected by the Federal Confidentiality of Alcohol and Drug Abuse Patient Records regulations: The Federal rules restrict any use of the information to criminally investigate or prosecute any alcohol or drug abuse patient.[facility] HospitalIn the event this information is protected by the Federal Confidentiality of Alcohol and Drug Abuse Patient Records regulations: The Federal rules restrict any use of the information to criminally investigate or prosecute any alcohol or drug abuse patient.[facility] HospitalIn the event this information is protected by the Federal Confidentiality of Alcohol and Drug Abuse Patient Records regulations: The Federal rules restrict any use of the information to criminally investigate or prosecute any alcohol or drug abuse patient.[facility] HospitalIn the event this information is protected by the Federal Confidentiality of Alcohol and Drug Abuse Patient Records regulations: The Federal rules restrict any use of the information to criminally investigate or prosecute any alcohol or drug abuse patient.[facility] HospitalIn the event this information is protected by the Federal Confidentiality of Alcohol and Drug Abuse Patient Records regulations: The Federal rules restrict any use of the information to criminally investigate or prosecute any alcohol or drug abuse patient.[facility] HospitalIn the event this information is protected by the Federal Confidentiality of Alcohol and Drug Abuse Patient Records regulations: The Federal rules restrict any use of the information to criminally investigate or prosecute any alcohol or drug abuse patient.[facility] HospitalIn the event this information is protected by the Federal Confidentiality of Alcohol and Drug Abuse Patient Records regulations: The Federal rules restrict any use of the information to criminally investigate or prosecute any alcohol or drug abuse patient.[facility] HospitalIn the event this information is protected by the Federal Confidentiality of Alcohol and Drug Abuse Patient Records regulations: The Federal rules restrict any use of the information to criminally investigate or prosecute any alcohol or drug abuse patient.[facility] HospitalIn the event this information is protected by the Federal Confidentiality of Alcohol and Drug Abuse Patient Records regulations: The Federal rules restrict any use of the information to criminally investigate or prosecute any alcohol or drug abuse patient.[facility] HospitalIn the event this information is protected by the Federal Confidentiality of Alcohol and Drug Abuse Patient Records regulations: The Federal rules restrict any use of the information to criminally investigate or prosecute any alcohol or drug abuse patient.[facility] HospitalIn the event this information is protected by the Federal Confidentiality of Alcohol and Drug Abuse Patient Records regulations: The Federal rules restrict any use of the information to criminally investigate or prosecute any alcohol or drug abuse patient.[facility] HospitalIn the event this information is protected by the Federal Confidentiality of Alcohol and Drug Abuse Patient Records regulations: The Federal rules restrict any use of the information to criminally investigate or prosecute any alcohol or drug abuse patient.[facility] HospitalIn the event this information is protected by the Federal Confidentiality of Alcohol and Drug Abuse Patient Records regulations: The Federal rules restrict any use of the information to criminally investigate or prosecute any alcohol or drug abuse patient.[facility] HospitalIn the event this information is protected by the Federal Confidentiality of Alcohol and Drug Abuse Patient Records regulations: The Federal rules restrict any use of the information to criminally investigate or prosecute any alcohol or drug abuse patient.[facility] HospitalIn the event this information is protected by the Federal Confidentiality of Alcohol and Drug Abuse Patient Records regulations: The Federal rules restrict any use of the information to criminally investigate or prosecute any alcohol or drug abuse patient.[facility] HospitalIn the event this information is protected by the Federal Confidentiality of Alcohol and Drug Abuse Patient Records regulations: The Federal rules restrict any use of the information to criminally investigate or prosecute any alcohol or drug abuse patient.[facility] HospitalIn the event this information is protected by the Federal Confidentiality of Alcohol and Drug Abuse Patient Records regulations: The Federal rules restrict any use of the information to criminally investigate or prosecute any alcohol or drug abuse patient.[facility] HospitalIn the event this information is protected by the Federal Confidentiality of Alcohol and Drug Abuse Patient Records regulations: The Federal rules restrict any use of the information to criminally investigate or prosecute any alcohol or drug abuse patient.[facility] HospitalIn the event this information is protected by the Federal Confidentiality of Alcohol and Drug Abuse Patient Records regulations: The Federal rules restrict any use of the information to criminally investigate or prosecute any alcohol or drug abuse patient.[facility] HospitalIn the event this information is protected by the Federal Confidentiality of Alcohol and Drug Abuse Patient Records regulations: The Federal rules restrict any use of the information to criminally investigate or prosecute any alcohol or drug abuse patient.[facility] HospitalIn the event this information is protected by the Federal Confidentiality of Alcohol and Drug Abuse Patient Records regulations: The Federal rules restrict any use of the information to criminally investigate or prosecute any alcohol or drug abuse patient.[facility] HospitalIn the event this information is protected by the Federal Confidentiality of Alcohol and Drug Abuse Patient Records regulations: The Federal rules restrict any use of the information to criminally investigate or prosecute any alcohol or drug abuse patient.[facility] HospitalIn the event this information is protected by the Federal Confidentiality of Alcohol and Drug Abuse Patient Records regulations: The Federal rules restrict any use of the information to criminally investigate or prosecute any alcohol or drug abuse patient.[facility] HospitalIn the event this information is protected by the Federal Confidentiality of Alcohol and Drug Abuse Patient Records regulations: The Federal rules restrict any use of the information to criminally investigate or prosecute any alcohol or drug abuse patient.[facility] HospitalIn the event this information is protected by the Federal Confidentiality of Alcohol and Drug Abuse Patient Records regulations: The Federal rules restrict any use of the information to criminally investigate or prosecute any alcohol or drug abuse patient.[facility] HospitalIn the event this information is protected by the Federal Confidentiality of Alcohol and Drug Abuse Patient Records regulations: The Federal rules restrict any use of the information to criminally investigate or prosecute any alcohol or drug abuse patient.[facility] Reason for Visit (unrecogniz ed section and content) Reason Onset Date Comments Refill Request 01/14/2022 Reason Comments Recheck Reason Onset Date Comments Refill Request 02/05/2022 Reason Comments Scheduling Reason Onset Date Comments Refill Request 03/26/2022 Reason Onset Date Comments Refill Request 04/17/2022 Reason Onset Date Comments Refill Request 04/18/2022 Reason Comments Rx issue; dosage correction Reason Comments New Pharmacy Med-Review Reason Onset Date Comments Refill Request 05/13/2022 Reason Onset Date Comments Refill Request 04/25/2022 Refill Request 05/14/2022 Reason Onset Date Comments Refill Request 05/23/2022 Reason Onset Date Comments Refill Request 06/14/2022 Reason Comments Blood sugar jennifer concern Reason Comments Recheck Reason Comments Results Reason Onset Date Comments Refill Request 07/12/2022 Reason Onset Date Comments Refill Request 07/15/2022 Reason Onset Date Comments Refill Request 08/13/2022 Reason Comments Ear Problem Reason Onset Date Comments Refill Request 08/15/2022 Reason Onset Date Comments Refill Request 09/05/2022 Reason Onset Date Comments Refill Request 10/03/2022 Reason Onset Date Comments Refill Request 10/10/2022 Reason Onset Date Comments Refill Request 10/14/2022 Reason Onset Date Comments Refill Request 11/06/2022 Reason Onset Date Comments Refill Request 01/12/2023 Reason Onset Date Comments Refill Request 01/21/2023 Reason Onset Date Comments Refill Request 02/13/2023 Reason Onset Date Comments Refill Request 06/01/2023 Reason Onset Date Comments Refill Request 06/07/2023 Reason Comments Physical Reason Comments Results Reason Onset Date Comments Refill Request 06/16/2023 Reason Onset Date Comments Refill Request 06/18/2023 Reason Onset Date Comments Refill Request 07/11/2023 Reason Onset Date Comments Refill Request 07/16/2023 Reason Comments Radiology US Specialty Diagnoses / Procedures Referred By Contac t Referred To Contact US IMAGING Diagnoses Multiple thyroid nodules Procedures US THYROID/PARATHYROID US SOFT TISSUE HEAD & NECK REAL TIME IMGE DOCM Juli Shaikh MD [address] [place] [address] [place] [address] Referral ID Status Reason Start Date Expiration Date V isits Requested Visits Authorized [id number] Closed Auto-Generate d Referral 06/11/2023 07/10/2024 1 1 Reason Comments Follow Up Review bilateral thy roid FNA results. Reason Comments Procedure Ultrasound Guided Fi ne Needle Aspiration Thyroid bilateral Reason Onset Date Comments Refill Request 08/13/2023 Reason Comments Imm/Inj Care Teams (unrecognized sec tion and content) [employer] Relationship Specialty Start Date End Date Juli Shaikh MD [address] [place] [address] [id number] PCP - General Family Practice 06/06/18 [employer] Relationship Specialty Start Date End Date Juli Shaikh MD [facility] [place] [address] PCP - General Family Practice 06/06/18 [employer] Relationship Specialty Start Date End Date Juli Shaikh MD [address] [place] [id number] PCP - General Family Practice 06/06/18 [employer] Relationship Specialty Start Date End Date Juli Shaikh MD [address] [place] [address] [phone] PCP - General Family Practice 06/06/18 [employer] Relationship Specialty Start Date End Date Juli Shaikh MD [address] [facility] [place] [address] PCP - General Family Practice 06/06/18 [employer] Relationship Specialty Start Date End Date Juli Shaikh MD [address] [facility] [place] [address] PCP - General Family Practice 06/06/18 [employer] Relationship Specialty Start Date End Date Juli Shaikh MD [address] [facility] [place] [address] PCP - General Family Practice 06/06/18 [employer] Relationship Specialty Start Date End Date Juli Shaikh MD [facility] [place] [address] PCP - General Family Practice 06/06/18 [employer] Relationship Specialty Start Date End Date Juli Shaikh MD [facility] [place] [address] PCP - General Family Practice 06/06/18 [employer] Relationship Specialty Start Date End Date Juli Shaikh MD [facility] [place] [address] PCP - General Family Practice 06/06/18 [employer] Relationship Specialty Start Date End Date Juli Shaikh MD [facility] [place] [address] PCP - General Family Practice 06/06/18 [employer] Relationship Specialty Start Date End Date Juli Shaikh MD [facility] [place] [address] PCP - General Family Medicine 06/06/18 [employer] Relationship Specialty Start Date End Date Juli Shaikh MD [facility] [place] [address] PCP - General Family Medicine 06/06/18 [employer] Relationship Specialty Start Date End Date Juli Shaikh MD [address] [facility] [place] [address] PCP - General Family Medicine 06/06/18 [employer] Relationship Specialty Start Date End Date Juli Shaikh MD [address] [facility] [place] [address] PCP - General Family Medicine 06/06/18 [employer] Relationship Specialty Start Date End Date Juli Shaikh MD [address] [facility] [place] [address] PCP - General Family Medicine 06/06/18 [employer] Relationship Specialty Start Date End Date Juli Shaikh MD [facility] [place] [address] PCP - General Family Medicine 06/06/18 [employer] Relationship Specialty Start Date End Date Juli Shaikh MD [address] [facility] [place] [address] PCP - General Family Medicine 06/06/18 [employer] Relationship Specialty Start Date End Date Juli Shaikh MD [address] [facility] [place] [address] PCP - General Family Medicine 06/06/18 [employer] Relationship Specialty Start Date End Date Juli Shaikh MD [address] [facility] [place] [address] PCP - General Family Medicine 06/06/18 [employer] Relationship Specialty [place] [address] [place] [address], [place] [address] PCP - General Family Medicine 06/06/18 [employer] Relationship Specialty Start Date End Date Juli Shaikh MD [address] [place] [address] [place] [address] PCP - General Family Medicine 06/06/18 [employer] Relationship Specialty Start Date End Date Juli Shaikh MD [address] [place] [address] PCP - General Family Medicine 06/06/18 [employer] Relationship Specialty Start Date End Date Juli Shaikh MD [address] [place] [address] PCP - General Family Medicine 06/06/18 [employer] Relationship Specialty Start Date End Date Juli Shaikh MD [address] [place] [address] PCP - General Family Medicine 06/06/18 [employer] Relationship Specialty Start Date End Date Juli Shaikh MD [address] [place] [address] PCP - General Family Medicine 06/06/18 [employer] Relationship Specialty Start Date End Date Juli Shaikh MD [address] [place] [address] PCP - General Family Medicine 06/06/18 [employer] Relationship Specialty Start Date End Date Juli Shaikh MD [address] [place] [address] PCP - General Family Medicine 06/06/18 [employer] Relationship Specialty Start Date End Date Juli Shaikh MD [address] [place] [address] PCP - General Family Medicine 06/06/18 [employer] Relationship Specialty Start Date End Date Juli Shaikh MD [address] [place] [address] PCP - General Family Medicine 06/06/18 [employer] Relationship Specialty Start Date End Date Juli Shaikh MD [address] [place] [address] PCP - General Family Medicine 06/06/18 [employer] Relationship Specialty Start Date End Date Juli Shaikh MD [address] [place], [place] [id number] PCP - General Family Medicine 06/06/18 FOR RECORDS PERTAINING TO PATIENTS WHO ARE OR HAVE BEEN ENROLLED IN A CHEMICAL DEPENDENCY/SUBSTANCEABUSE PROGRAM, SOME INFORMATION MAY BE OMITTED. This clinical summary was aggregated from multiple sources. Caution should be exercised in using it in the provision of clinical care. This summary normalizes information from multiple sources, and as a consequence, information in this document may materially change the coding, format and clinical context of patient data. In addition, data may be omitted in some cases. CLINICAL DECISIONS SHOULD BE BASED ON THE PRIMARY CLINICAL RECORDS. [employer] provides no warranty or guarantee of the accuracy or completeness of information in this document.
== END 2023-09-29 12:12 | disposition home or self-care (01) ==
LOC: ED 12:02
PROVIDERS: Emergency Provider Emergency Medicine; PCP Family Medicine; Visit Provider Emergency Medicine
DX: S09.90XA Unspecified injury of head, initial encounter (principal); F31.9 Bipolar disorder, unspecified; E11.9 Type 2 diabetes mellitus without complications; M54.2 Cervicalgia; Y99.0 Civilian activity done for income or pay; I10 Essential (primary) hypertension; Z79.899 Other long term (current) drug therapy; W01.198A Fall on same level from slipping, tripping and stumbling with subsequent striking against other object, initial encounter; Y92.89 Other specified places as the place of occurrence of the external cause
CPT/HCPCS: 70450; 72125; 99282

== ENCOUNTER → 2024-02-26 | Outpatient (CLI) | payer OTHER, SELFPAY ==
[2024-02-26 13:03] LABS: Absolute Lymphocyte Count 2.38 X10^3/uL (0.83-4.51); Absolute Neutrophil Count 2.7 X10^3/uL (2.0-7.7); Basophil# 0.05 X10^3/uL; Basophil% 0.9 % (0-1); Eosinophil# 0.15 X10^3/uL; Eosinophils% 2.6 % (0-5); Hematocrit 43.8 % (40-54); Hemoglobin 15.3 g/dL (13.0-16.5); Lymphocyte # 2.38 X10^3/ul (0.83-4.51); Lymphocyte % 41.2 % (19-41); Mean Corp Hgb Conc 34.9 g/dL (32-36); Mean Corpuscular Hgb 32.8 pg (27.0-32.0); Mean Platelet Vol. 11.3 fl (6.2-12.0); Monocyte# 0.47 X10^3/uL; Monocyte% 8.1 % (0-10); NRBC Flagged by Analyzer 0 % (0-5); Neutrophil # 2.71 X10^3/uL (2.7-7.7); Neutrophil % 46.9 % (47-70); Platelet Count 160 K/mm3 (150-450); RBC Distribution Width CV 12.3 % (11.6-14.6); Red Blood Count 4.66 M/mm3 (4.6-6.2); White Blood Count 5.8 K/mm3 (4.4-11.0)
[2024-02-26 14:17] LABS: ALB/GLOB Ratio 1.2 RATIO (0.9-2.4); AST(SGOT) 24 U/L (15-37); Alanine Aminotransfer ALT/SGPT 36 U/L (16-61); Albumin, Serum 4.1 g/dL (3.2-5.0); Alkaline Phosphatase 68 U/L (45-117); Anion Gap 6 (5-15); BUN 13 mg/dL (7-18); BUN/Creat Ratio 12.6 RATIO (10-20); Calcium,Total 9.4 mg/dL (8.5-10.1); Chloride 100 mmol/L (98-107); Creatinine, Serum 1.03 mg/dL (0.70-1.30); EST Glomerular Filtration Rate 82 mL/min (>60); Est Glom Filt Rate - Afr Amer 99 mL/min (>60); Globulin 3.4 g/dL (2.2-4.2); Glucose 159 mg/dL (74-106); Protein, Total 7.5 g/dL (6.4-8.2); Sodium Level 131 mmol/L (136-145); Thyroid Stim Hormone (TSH) 2.31 uIU/mL (0.358-3.74)
== END | disposition home or self-care (01) ==
PROVIDERS: PCP Family Medicine
DX: F31.81 Bipolar II disorder (principal)
CPT/HCPCS: 36415; 80053; 80178; 84443; 85025

== ENCOUNTER → 2024-05-05 | Outpatient (CLI) | payer OTHER, SELFPAY ==
[2024-05-05 10:09] LABS: Absolute Lymphocyte Count 2.23 X10^3/uL (0.83-4.51); Basophil# 0.03 X10^3/uL; Basophil% 0.4 % (0-1); Eosinophil# 0.23 X10^3/uL; Eosinophils% 3.3 % (0-5); Hematocrit 40.7 % (40-54); Hemoglobin 14.1 g/dL (13.0-16.5); Lymphocyte # 2.23 X10^3/ul (0.83-4.51); Mean Corp Hgb Conc 34.6 g/dL (32-36); Mean Corpuscular Hgb 34.3 pg (27.0-32.0); Mean Platelet Vol. 11.3 fl (6.2-12.0); Monocyte# 0.51 X10^3/uL; Monocyte% 7.3 % (0-10); NRBC Flagged by Analyzer 0 % (0-5); Neutrophil # 3.95 X10^3/uL (2.7-7.7); Neutrophil % 56.7 % (47-70); Platelet Count 193 K/mm3 (150-450); RBC Distribution Width CV 12.3 % (11.6-14.6); RBC Distribution Width SD 44.8 fl (35.1-43.9); Red Blood Count 4.11 M/mm3 (4.6-6.2)
[2024-05-05 11:23] LABS: AST(SGOT) 20 U/L (15-37); Alanine Aminotransfer ALT/SGPT 33 U/L (16-61); Albumin, Serum 3.8 g/dL (3.2-5.0); Alkaline Phosphatase 66 U/L (45-117); Anion Gap 7 (5-15); BUN 11 mg/dL (7-18); BUN/Creat Ratio 10.8 RATIO (10-20); Calcium,Total 9.4 mg/dL (8.5-10.1); Chloride 105 mmol/L (98-107); Creatinine, Serum 1.02 mg/dL (0.70-1.30); EST Glomerular Filtration Rate 83 mL/min (>60); Est Glom Filt Rate - Afr Amer 100 mL/min (>60); Globulin 3.9 g/dL (2.2-4.2); Glucose 146 mg/dL (74-106); Potassium 3.9 mmol/L (3.5-5.1); Protein, Total 7.7 g/dL (6.4-8.2); Sodium Level 138 mmol/L (136-145)
== END | disposition home or self-care (01) ==
LOC: LAB 09:37
PROVIDERS: PCP Family Medicine
DX: F31.32 Bipolar disorder, current episode depressed, moderate (principal)
CPT/HCPCS: 36415; 80053; 80178; 84443; 85025

== ENCOUNTER → 2024-06-20 | Outpatient (CLI) | payer OTHER, SELFPAY ==
[2024-06-20 12:59] LABS: Valproic Acid (Depakene) Level 98 ug/mL (50-100)
== END | disposition home or self-care (01) ==
LOC: LAB 11:39
PROVIDERS: PCP Family Medicine
DX: F31.32 Bipolar disorder, current episode depressed, moderate (principal)
CPT/HCPCS: 36415; 80164; 80178

== ENCOUNTER 2024-10-03 11:41 | Emergency (ER) | payer OTHER, SELFPAY ==
[2024-10-03] VITALS (8 sets, daily range): BP systolic 135–144; BP diastolic 84–91; PULSE 83–96; RESP 13–21; TEMP 37.8–39.3; O2SAT 93–95; BMI 28.0
--- NOTE | 2024-10-03 12:09 | EKG12_ITS ---
Test Reason : CONFUSION Blood Pressure : */* mmHG Vent. Rate : 89 BPM Atrial Rate : 89 BPM P-R Int : 162 ms QRS Dur : 90 ms QT Int : 352 ms P-R-T Axes : 47 78 15 degrees QTcB Int : 428 ms Normal sinus rhythm Nonspecific T wave abnormality Abnormal ECG Confirmed by ZOE ACOSTA, SIMI ([id number]), editor book LENARD THORNTON ([id number]) on 10/05/2024 10:48:31 A M Referred By: Confirmed By: SIMI ENRIQUEZ MD
--- NOTE | 2024-10-03 12:14 | EX.ED.VIS.UR ---
HPI HPI - URI History of Present Illness Chief Complaint: Confusion Detail of Chief Complaint: Fever with generalized weakness and mental status change. Informant: patient and spouse/S.O. Onset/Context/Timing Onset: Days Context: Gradual Onset Timing: Continuous Current Severity: Moderate Maximum Severity: Moderate Associated Symptoms Associated Symptoms: Positive for Nasal Congestion, Myalgias and Nonproductive cough Narrative Narrative: 49-year-old male history of bipolar, diabetes and hypertension. He has had a URI last several days. Did not notice a fever at home. Called his today said he was leaving work as he did not feel well. He works in the [employer]. We did not come home she called him said he was not acting normally and seemed confused. She drove to his worksite and he was in his car slumped over his steering wheel. She brought him right to the emergency department. She denies recent vomiting or diarrhea. He denies any dysuria. Prior similar symptoms: Yes Recent Illness/Hospitalization: No ROS ROS ED ROS Narrative URI. Fever today. Constitutional Constitutional ED: Reports fever(s) Eyes Eyes: Denies blurry vision ENT ENT ED: Denies ear pain Cardiovascular Cardiovascular: Denies chest pain Respiratory/Chest Respiratory/Chest: Reports cough Gastrointestinal Gastrointestinal: Denies abdominal pain, constipation, diarrhea, melena, nausea or vomiting Genitourinary Genitourinary ED: Denies dysuria or hematuria Musculoskeletal Musculoskeletal: Denies arthralgias or back pain Integumentary Denies abscess or Abrasions Neurologic Neurologic: Reports weakness; Denies headache(s) or paresthesias Psychiatric Psychiatric: Denies anxiety Endocrine Endocrinology: Denies cold intolerance Hematologic/Lymphatic Hematologic/Lymphatic: Denies easy bleeding Allergic/Immunologic Allergic/Immunologic ED: Denies mouth swelling [facility] Medical History (Updated 10/03/24 @ 14:[address] Kolby Hayden MD) Hypercholesteremia Bipolar 1 disorder Diabetes Hypertension Appendicitis Home Medications ?Medication ?Instructions ?Recorded ?Last Taken ?Type vitamin B complex 1 ea PO DAILY 05/19/14 Unknown History divalproex 500 mg tablet,delayed 500 mg PO TID 05/28/14 Unknown History release (Depakote) metoprolol tartrate 100 mg tablet 100 mg PO DAILY 05/28/14 Unknown History risperidone 1 mg tablet 3 mg PO DAILY 05/28/14 Unknown History atorvastatin 10 mg tablet 10 mg PO DAILY 10/03/21 Unknown History epinephrine 0.3 mg/0.3 mL 0.3 mg IM PRN PRN Allergic Reaction 10/03/21 Unknown History injection, auto-injector famotidine 20 mg tablet 20 mg PO BID 10/03/21 Unknown History lisinopril 20 mg tablet 20 mg PO DAILY 10/03/21 Unknown History buspirone 15 mg tablet 30 mg 3XD 10/03/24 Unknown History colestipol 1 gram tablet 2 g PO BID 10/03/24 Unknown History lithium carbonate 300 mg capsule mg 10/03/24 Unknown History metformin 1,000 mg tablet 1,000 mg PO BID 10/03/24 Unknown History Allergy/AdvReac Type Severity Reaction Status Date / Time venom-honey bee (bee venom Allergy Unknown Verified 10/03/24 11:42 (honey bee)) Surgical History (Updated 10/03/24 @ 12:41 by La Lowery) History of appendectomy Social History Smoking Status: Never smoker EXAM Physical Exam Narrative Exam Narrative: 49-year-old male lying in bed. at bedside. He has a fever of 102.7. Otherwise vital signs stable afebrile. Pulse ox 94% on room air no hypoxia. H EENT exam pupils round react light. Dry mucous members. No trauma to his face or head. Neck nontender no meningismus. No lymphadenopathy. Trachea midline nontender. Lungs dry cough. No rales rhonchi or wheezing. Equal symmetrical. No respiratory distress. Heart regular rhythm rate about 95 no murmur. Chest wall ribs nontender. Abdomen soft nontender. Moving all 4 extremities. Nontender no deformity. No hot or swollen joints. No edema. Back nontender. Skin no rashes. Neurologically he is awake. He is answering questions and following commands. Const Vital Signs: 10/03/24 11:42 10/03/24 12:09 10/03/24 12:11 Temperature 102.7 F H 102.7 F H Temperature Source Oral Oral Pulse Rate 96 92 Respiratory Rate 15 21 H Blood Pressure 144/91 H 140/86 H Blood Pressure Mean 108 104 Pulse Ox 94 95 93 Oxygen Delivery Method Room Air Room Air Room Air 10/03/24 12:41 10/03/24 13:00 Temperature 102.7 F H Temperature Source Oral Pulse Rate 91 89 Respiratory Rate 16 16 Blood Pressure 135/84 H 137/85 H Blood Pressure Mean 101 102 Pulse Ox 93 94 Oxygen Delivery Method Room Air Room Air Positive well nourished and well developed; Negative for obese, cachectic or contractures General Appearance ED: well developed; Negative for cachectic, contractures, cyanotic, diaphoretic or pallor Nutritional Appearance: Negative for cachectic or obese HEENT Reports dry mucous membranes normocephalic and atraumatic Face and Sinus: Negative for sinus tenderness Mouth ED: Yes dry mucous membranes Mouth: dry mucous membranes Throat: posterior oropharynx normal Eyes PERRL and EOMs intact bilaterally General Eye ED: Negative for pale conjunctiva Neck no lymphadenopathy, supple, no meningeal signs and no JVD General: Negative for anterior neck swelling or lymphadenopathy Resp normal respiratory effort and clear to auscultation bilaterally Resp Narrative: Dry cough. Cardio S1 normal heart sound, S2 normal heart sound and no murmurs Rate: regular rate Rhythm: regular rhythm GI non-tender, non-distended and no masses Palpation: soft; Negative for tender or guarding Back/Spine no CVA tenderness and normal ROM General Back: Negative for CVA tenderness Cervical Spine: Negative for cervical spine tenderness Thoracic Spine / Upper Back: Negative for thoracic spinal tenderness Lumbar Spine / Lower Back: Negative for lumbar spinal tenderness Sacrum: Negative for tenderness Extremity normal to inspection and full ROM General Extremety ED: Negative for cyanosis or tenderness General Extremity: Negative for cyanosis Neuro oriented x3 Sensorium / Orientation: alert, oriented to person, oriented to place and oriented to time; Negative for orientation impaired, lethargic or stuporous Motor Exam: strength 5/5 throughout Psych mental status grossly normal Appearance: Negative for other Attitude: No agitated Mood & Affect: Negative for depressed, anxious or tearful Skin General Skin Exam: Negative for jaundice or pallor Lesions: no lesions Rashes: no rashes Trauma: Negative for abrasion or laceration MDM MDM MDM Narrative Medical decision making narrative: 49-year-old male fever suspect underlying infection viral versus bacterial. Clinically appears dehydrated. Will undergo a septic workup. Receive IV fluids and Tylenol. Repeat exam at 2:08 PM patient clinically looks and feels much better. I went over his test results of both he and his . They are comfortable with him being discharged home. The alternate Tylenol and Motrin for his fever. Fluids and rest. Increase activity as tolerated. He is off work the next 2 days already. They know to return if worse. History & Record Review Discussion w/independent historian: Patient Additional record(s) reviewed:: Prior inpatient record, Prior outpatient record, Prior ED visit and Prior labs Lab Data Attestation: I reviewed the patient's lab results. Lab results narrative: CBC white count of 5. H&H 12.8 and 37. Platelets 111. PT/INR 13 and 1. PTT 29. Electrolytes show a sodium 134. Gap 9. Normal BUN of 11 creatinine 1.1. Glucose 193. Liver enzymes unremarkable. Lactic acid 1.8. UA normal. No signs of infection. Influenza A positive. COVID and flu negative. Chest x-ray unremarkable. Labs: Laboratory Results - last 24 hr 10/03/24 10/03/24 10/03/24 12:04 12:29 13:23 WBC 5.1 RBC 3.96 L Hgb 12.8 L Hct 37.1 L MCV 93.7 MCH 32.3 H MCHC 34.5 RDW Std Deviation 43.5 RDW Coeff of Tiana 12.6 Plt Count 111 L MPV 11.5 Immature Gran % (Auto) 0.400 Neut % (Auto) 68.8 Lymph % (Auto) 15.2 L Will % (Auto) 15.2 H Eos % (Auto) 0.0 Baso % (Auto) 0.4 Absolute Neuts (auto) 3.5 Absolute Lymphs (auto) 0.77 L Nucleated RBC % 0 PT 13.8 INR 1.0 APTT 29.4 Sodium 134 L Potassium 3.5 Chloride 98 Carbon Dioxide 26.0 Anion Gap 9 BUN 11 Creatinine 1.19 Est GFR (MDRD) Af Amer 84 Est GFR (MDRD) Non-Af 69 BUN/Creatinine Ratio 9.2 L Glucose 193 H Lactic Acid 1.8 Calcium 9.4 Total Bilirubin 0.60 AST 20 ALT 25 Alkaline Phosphatase 62 Total Protein 7.6 Albumin 3.9 Globulin 3.7 Albumin/Globulin Ratio 1.1 Urine Color Yellow Urine Clarity Clear Urine pH 6.0 Ur Specific [place] 1.015 Urine Protein 30 H Urine Glucose (UA) 250 H Urine Ketones 50 H Urine Occult Blood 10 H Urine Nitrite Negative Urine Bilirubin Negative Urine Urobilinogen Normal Ur Leukocyte Esterase Negative Urine RBC 0 SEEN Urine WBC 0 SEEN Ur Squamous Epith Cells 0 SEEN Urine Bacteria 0 SEEN Urine Mucus 0 SEEN Radiography Chest X-Ray - ED: 1 View, Read by ED Physician, Read by Radiologist, Normal, Heart, Lungs, Mediastinum, Bony Structures, No Acute Disease and Chronic Changes Diagnostic Testing: Clinical Impression(s) from Imaging Studies Chest X-Ray 10/03/24 12:18 IMPRESSION: No radiographic evidence of acute cardiopulmonary disease. Electronically Signed: Hayder Zarate MD at 13:00 EST , Chest x-ray, 2 views, interpreted by myself and the radiologist shows no acute abnormality. No pneumonia. Normal cardiac silhouette. Normal lung jarrett. Rhythm Strip Rhythm Strip: Sinus Rhythm Rate: 89 Ectopy: None EKG Initial EKG: Attestation: I personally reviewed and interpreted this EKG as follows: Interpretation: Sinus Rhythm and No Acute Injury Pattern Comments: Normal sinus rhythm rate 89 no acute signs of MS or ischemia. Discharge Plan Triage Chief Complaint: Confusion ED Provider: Kolby Hayden Dx/Rx/DC Orders Clinical Impression: Influenza A, Fever Instructions: ED Fever Control (Adult), ED Influenza (Adult) Prescriptions: No Action vitamin B complex 1 EACH capsule 1 ea PO DAILY metoprolol tartrate 100 MG tablet 100 mg PO DAILY divalproex [Depakote] 500 MG tablet,delayed release (DR/EC) 500 mg PO TID risperidone 1 MG tablet 3 mg PO DAILY atorvastatin 10 mg tablet 10 mg PO DAILY lisinopril 20 mg tablet 20 mg PO DAILY famotidine 20 mg tablet 20 mg PO BID epinephrine 0.3 mg/0.3 mL auto-injector 0.3 mg IM PRN PRN (Reason: Allergic Reaction) buspirone 15 mg tablet 30 mg 3XD lithium carbonate 300 mg capsule metformin 1,000 mg tablet 1,000 mg PO BID colestipol 1 gram tablet 2 g PO BID Primary Care Provider: Care Physician,No Primary Referrals: Ilya Chavez MD [Non-Staff] - 3-5 Days if not improving Activity Restrictions/Additional Instructions: Plenty of fluids and rest. Increase diet slowly as tolerated. Alternate Tylenol and Motrin for fever. Follow-up with your doctor if not improving or return if worse. Off work next 2 days. You are diagnosed with influenza A. Print Language: [place] Disposition Disposition: Home, Self Care
--- NOTE | 2024-10-03 12:18 | RAD_ITS ---
INDICATION: fever EXAMINATION/TECHNIQUE: X-RAY - XR Chest 1 View COMPARISON: Prior study dated: 07/19/2023 FINDINGS: LINES/DEVICES: None. LUNGS: No consolidation, edema or effusion. No pneumothorax. MEDIASTINUM AND CARDIOVASCULAR STRUCTURES: Cardiac silhouette not enlarged. Central airways and mediastinal contour are unremarkable. BONES AND SOFT TISSUES: Unremarkable. RAD/Chest 1 View (Portable) IMPRESSION: No radiographic evidence of acute cardiopulmonary disease. Electronically Signed: Hayder Zarate MD at 13:00 EST ,
[2024-10-03 12:20] LABS: Absolute Lymphocyte Count 0.77 X10^3/uL (0.83-4.51); Absolute Neutrophil Count 3.5 X10^3/uL (2.0-7.7); Basophil# 0.02 X10^3/uL; Basophil% 0.4 % (0-1); Hematocrit 37.1 % (40-54); Hemoglobin 12.8 g/dL (13.0-16.5); Lymphocyte # 0.77 X10^3/ul (0.83-4.51); Lymphocyte % 15.2 % (19-41); Mean Corp Hgb Conc 34.5 g/dL (32-36); Mean Corpuscular Hgb 32.3 pg (27.0-32.0); Mean Corpuscular Volume 93.7 fL (80-94); Mean Platelet Vol. 11.5 fl (6.2-12.0); Monocyte# 0.77 X10^3/uL; Monocyte% 15.2 % (0-10); NRBC Flagged by Analyzer 0 % (0-5); Neutrophil # 3.47 X10^3/uL (2.7-7.7); Neutrophil % 68.8 % (47-70); Platelet Count 111 K/mm3 (150-450); RBC Distribution Width CV 12.6 % (11.6-14.6); RBC Distribution Width SD 43.5 fl (35.1-43.9); Red Blood Count 3.96 M/mm3 (4.6-6.2); White Blood Count 5.1 K/mm3 (4.4-11.0)
[2024-10-03 12:35] LABS: ALB/GLOB Ratio 1.1 RATIO (0.9-2.4); AST(SGOT) 20 U/L (15-37); Alanine Aminotransfer ALT/SGPT 25 U/L (16-61); Albumin, Serum 3.9 g/dL (3.2-5.0); Alkaline Phosphatase 62 U/L (45-117); Anion Gap 9 (5-15); BUN 11 mg/dL (7-18); BUN/Creat Ratio 9.2 RATIO (10-20); Calcium,Total 9.4 mg/dL (8.5-10.1); Chloride 98 mmol/L (98-107); Creatinine, Serum 1.19 mg/dL (0.70-1.30); EST Glomerular Filtration Rate 69 mL/min (>60); Est Glom Filt Rate - Afr Amer 84 mL/min (>60); Globulin 3.7 g/dL (2.2-4.2); Glucose 193 mg/dL (74-106); Potassium 3.5 mmol/L (3.5-5.1); Protein, Total 7.6 g/dL (6.4-8.2); Sodium Level 134 mmol/L (136-145)
[2024-10-03] MEDS: 0.9% Normal Saline (1000mL) 1,000 ML 999 ML IV (12:37)
[2024-10-03] MEDS: Acetaminophen 500 MG Tablet 1000 MG PO (12:37)
--- NOTE | 2024-10-03 12:47 | ED.RN ---
Patient a&o to self and location but unable to state the year or month.
[2024-10-03 12:48] LABS: Prothrombin Time (Protime)PT. 13.8 SECONDS (11.7-14.9)
--- NOTE | 2024-10-03 12:48 | ED.RN ---
Patient able to identify month and year after being prompted multiple times and allowed time to think
[2024-10-03 12:49] LABS: Partial Thromboplast Time 29.4 Seconds (24.1-36.2)
[2024-10-03 13:02] LABS: Lactic Acid 1.8 mmol/L (0.4-1.9)
--- NOTE | 2024-10-03 13:05 | ED.RN ---
Patient given urinal and prompted for urine specimen
--- NOTE | 2024-10-03 13:09 | ED.RN ---
Notification from lab that the patient is Flu A positive. Dr. Hayden notified.
[2024-10-03 13:31] LABS: Bacteria 0 SEEN /hpf (None Seen); Mucous, Urine 0 SEEN /hpf (<or=2+); Red Blood Cells-Urine 0 SEEN /hpf (0-5); Squamous Epithelial Cells - UA 0 SEEN /hpf (0-5); White Blood Cells 0 SEEN /hpf (0-5)
[2024-10-03 13:32] LABS: Color, Urine Yellow (Yellow); Glucose, Dipstick 250 mg/dl (Normal); Ketone-Dipstick 50 mg/dl (Negative); Leukocyte Esterase-Dipstick Negative /ul (Negative); Nitrite-Dipstick Negative (Negative); Occult Blood-Urine 10 /ul (Negative); Protein-Dipstick 30 mg/dl (Negative); Specific Gravity, Urine 1.015 (1.002-1.030); Urine Bilirubin Dipstick Negative (Negative); Urine Clarity Clear (Clear); Urine Urobilinogen Normal (Normal)
== END 2024-10-03 14:49 | disposition home or self-care (01) ==
PROVIDERS: Emergency Provider Emergency Medicine; Visit Provider Emergency Medicine
DX: J10.1 Influenza due to other identified influenza virus with other respiratory manifestations (principal); F31.9 Bipolar disorder, unspecified; E11.9 Type 2 diabetes mellitus without complications; E78.00 Pure hypercholesterolemia, unspecified; I10 Essential (primary) hypertension; R50.9 Fever, unspecified; Z79.899 Other long term (current) drug therapy; Z79.84 Long term (current) use of oral hypoglycemic drugs; Z90.49 Acquired absence of other specified parts of digestive tract
CPT/HCPCS: 96360; 71045; 80053; 81001; 83605; 85025; 85610; 85730; 87040; 87086; 87088; 87631; 93005; 99283; A4216

== ENCOUNTER → 2024-12-30 | Outpatient (CLI) | payer OTHER, SELFPAY ==
[2024-12-30 09:58] LABS: Absolute Lymphocyte Count 2.05 X10^3/uL (0.83-4.51); Absolute Neutrophil Count 2.1 X10^3/uL (2.0-7.7); Basophil# 0.05 X10^3/uL; Eosinophil# 0.17 X10^3/uL; Eosinophils% 3.5 % (0-5); Hematocrit 39.1 % (40-54); Hemoglobin 13.7 g/dL (13.0-16.5); Lymphocyte # 2.05 X10^3/ul (0.83-4.51); Lymphocyte % 42.3 % (19-41); Mean Corpuscular Hgb 33.9 pg (27.0-32.0); Mean Corpuscular Volume 96.8 fL (80-94); Mean Platelet Vol. 10.9 fl (6.2-12.0); Monocyte# 0.46 X10^3/uL; Monocyte% 9.5 % (0-10); NRBC Flagged by Analyzer 0 % (0-5); Neutrophil # 2.11 X10^3/uL (2.7-7.7); Neutrophil % 43.5 % (47-70); Platelet Count 185 K/mm3 (150-450); RBC Distribution Width CV 12.7 % (11.6-14.6); RBC Distribution Width SD 45.6 fl (35.1-43.9); Red Blood Count 4.04 M/mm3 (4.6-6.2); White Blood Count 4.9 K/mm3 (4.4-11.0)
[2024-12-30 10:39] LABS: ALB/GLOB Ratio 1.8 RATIO (0.9-2.4); AST(SGOT) 21 U/L (<=37); Alanine Aminotransfer ALT/SGPT 21 U/L (<=46); Albumin, Serum 4.8 g/dL (3.5-5.0); Alkaline Phosphatase 75 U/L (40-129); Anion Gap 12 (5-15); BUN 8 mg/dL (4-19); BUN/Creat Ratio 7.7 RATIO (10-20); Calcium,Total 9.6 mg/dL (7.6-11.0); Carbon Dioxide 24.9 mmol/L (21.0-32.0); Chloride 101 mmol/L (98-108); EST Glomerular Filtration Rate 92 (>60); Globulin 2.7 g/dL (2.2-4.2); Glucose 157 mg/dL (70-99); Potassium 3.7 mmol/L (3.3-5.1); Protein, Total 7.5 g/dL (5.9-8.4); Sodium Level 138 mmol/L (133-145); Total Bilirubin 0.53 mg/dL (0.00-1.30)
[2024-12-30 10:42] LABS: Valproic Acid (Depakene) Level 46 ug/mL (50-100)
== END | disposition home or self-care (01) ==
LOC: LAB 09:28
DX: F31.31 Bipolar disorder, current episode depressed, mild (principal)
CPT/HCPCS: 36415; 80053; 80164; 80178; 84443; 85025

== ENCOUNTER → 2025-03-30 | Outpatient (CLI) | payer OTHER, SELFPAY ==
[2025-03-30 12:01] LABS: Hematocrit 37.9 % (40-54); Hemoglobin 13.2 g/dL (13.0-16.5); Immature Granulocytes Count 0.010 X10^3/uL (0.0-0.0); Mean Corp Hgb Conc 34.8 g/dL (32-36); Mean Corpuscular Volume 94.0 fL (80-94); Mean Platelet Vol. 11.8 fl (6.2-12.0); NRBC Flagged by Analyzer 0 % (0-5); Platelet Count 151 K/mm3 (150-450); RBC Distribution Width CV 13.8 % (11.6-14.6); RBC Distribution Width SD 47.4 fl (35.1-43.9); Red Blood Count 4.03 M/mm3 (4.6-6.2); White Blood Count 4.2 K/mm3 (4.4-11.0)
[2025-03-30 12:43] LABS: AST(SGOT) 20 U/L (<=37); Alanine Aminotransfer ALT/SGPT 23 U/L (<=46); Albumin, Serum 4.5 g/dL (3.5-5.0); Alkaline Phosphatase 81 U/L (40-129); Anion Gap 13 (5-15); BUN 14 mg/dL (4-19); BUN/Creat Ratio 15.7 RATIO (10-20); Calcium,Total 9.9 mg/dL (7.6-11.0); Carbon Dioxide 25.1 mmol/L (21.0-32.0); Chloride 100 mmol/L (98-108); Cholesterol 82 mg/dL (<=200); Ferritin 190 ng/mL (37-417); Globulin 2.7 g/dL (2.2-4.2); Glucose 215 mg/dL (70-99); Low Density Lipoprotein Calc. 21 mg/dL; PSA,Total - Annual Screen 0.49 ng/mL (0.02-4.00); Potassium 4.2 mmol/L (3.3-5.1); Triglycerides 164 mg/dL; Very Low Density Lipoprotein 33 mg/dL (5-40); Vitamin B12 399 pg/mL (180-914); Vitamin D,25 Hydroxy 29.7 ng/mL (30-100); cholesterol:hdl ratio screen 2.93
[2025-03-30 13:18] LABS: Iron 103 ug/dL (65-175)
== END | disposition home or self-care (01) ==
LOC: BFHLAB 10:02
PROVIDERS: PCP Nurse Practitioner Family; Visit Provider Nurse Practitioner Family
DX: Z00.01 Encounter for general adult medical examination with abnormal findings (principal); E11.9 Type 2 diabetes mellitus without complications; R53.83 Other fatigue; Z12.5 Encounter for screening for malignant neoplasm of prostate
CPT/HCPCS: 36415; 80053; 80061; 82306; 82607; 82728; 83036; 83540; 84153; 84439; 84443; 85025; G0103

== ENCOUNTER → 2025-06-01 | Outpatient (CLI) | payer OTHER, SELFPAY ==
--- NOTE | 2025-06-01 16:18 | RAD_ITS ---
PROCEDURE: WRIST MIN 3 VIEWS 06/01/2025 REASON FOR EXAM: WRIST PAIN No known injury TECHNIQUE: Procedure Code: RADWR Modality: DX Procedure: WRIST MIN 3 VIEWS Laterality: Right wrist COMPARISON: None FINDINGS: Bones: No visible fracture. No suspicious bone lesion. Joints: Normal alignment. Soft tissues: Soft tissues are unremarkable. Other: RAD/Wrist min 3 Views IMPRESSION: NEGATIVE WRIST Reading Location: [place] [id number]
--- NOTE | 2025-06-01 16:18 | RAD_ITS ---
PROCEDURE: CHEST PA AND LATERAL 06/01/2025 REASON FOR EXAM: SOB TECHNIQUE: Procedure Code: RADCXR Modality: DX Procedure: CHEST PA AND LATERAL COMPARISON: 10/03/2024. FINDINGS: The heart is normal in size. The lungs are clear. No acute osseous abnormalities. RAD/Chest PA and Lateral IMPRESSION: NO ACUTE FINDINGS. Reading Location: [id number]
== END | disposition home or self-care (01) ==
LOC: RAD 16:09
PROVIDERS: PCP Nurse Practitioner Family; Referring Provider Nurse Practitioner Family; Visit Provider Nurse Practitioner Family
DX: R06.02 Shortness of breath (principal); M25.531 Pain in right wrist
CPT/HCPCS: 71046; 73110